=== PATIENT | female | born 1970 | race Caucasian/White ===

== ENCOUNTER → 2017-07-07 10:57 | Outpatient (CLI) | payer MEDICAID, SELFPAY ==
--- NOTE | 2017-07-07 13:34 | NEURO ---
NCS and/or EMG Patient Report Ordering Doctor: Meet Gasca DATE OF SERVICE: 07/07/17 Nohelia Castañeda is a 47-year-old female presents for electrodiagnostic testing of the upper limbs. She has numbness and tingling in both hands for the past 6 months. Electrodiagnostic findings: Median motor nerve demonstrates prolonged distal latency bilaterally with normal amplitude and borderline reduced conduction velocity. Normal ulnar motor response bilaterally. Prolonged median sensory latencies are noted bilaterally. Median and ulnar F waves are within normal limits. Needle EMG testing revealed no evidence of denervation in any muscles tested. Electrodiagnostic impression: This is an abnormal study in the upper limbs. 1. Electrodiagnostic findings demonstrate bilateral median mononeuropathy. This is consistent with a moderate bilateral carpal tunnel syndrome. 2. No electrodiagnostic evidence is noted for ulnar neuropathy. 3. No electrodiagnostic evidence is noted for cervical radiculopathy. If there are any further questions, please do not hesitate contact me.
== END ==
PROVIDERS: Family Provider Family Medicine; PCP Family Medicine; Visit Provider Internal Medicine Cardiovascular Disease
DX: R20.2 Paresthesia of skin (principal)
CPT/HCPCS: 95886; 95912; Q9957; A4216

== ENCOUNTER → 2017-07-07 13:55 | Outpatient (CLI) | payer MEDICAID, SELFPAY ==
--- NOTE | 2017-07-07 11:00 | ECHOCS_ITS ---
Reason For Study: Chest Pain Procedure This was a 2D Doppler, Color Flow transthoracic echocardiogram. Exam performed in department. Left Ventricle Normal size and thickness. The estimated ejection fraction is 65 %. Normal diastology for age. No regional wall motion abnormalities noted. Right Ventricle Normal size and thickness. Normal systolic function. Atria Normal left atrium. Normal right atrium. Normal atrial septum. Mitral Valve The mitral valve is structurally normal. No prolapse or stenosis seen. Tricuspid Valve Normal tricuspid valve. Trivial tricuspid valve insufficiency. Right ventricular systolic pressure estimated to be 23 mmHg. Aortic Valve Trisinus/trileaflet aortic valve. Mild focal aortic valve thickening. There is no aortic stenosis. Trivial aortic valve insufficiency. Pulmonic Valve Normal pulmonic valve. Great Vessels Normal aortic root. Normal arch. Normal inferior vena cava. Inferior vena cava collapse with sniff. Pericardium/Pleural No pericardial effusion. Medication 22 gauge I.V. with prn adaptor inserted into right arm. Diluted definity 1ml given slow IV push to enhance endocardial definition. MMode/2D Measurements & Calculations LVIDd: 4.5 cm IVSd: 1.2 cm Ao root diam: 3.2 cm LVIDs: 2.6 cm LVPWd: 1.1 cm LA dimension: 3.6 cm RVDd: 3.3 cm FS: 43.1 % LAV(MOD-bp): 43.1 ml LVAd ap4: 26.5 cm2 SV(MOD-sp4): 47.6 ml LAV(MOD-bp) Indexed: 20.8 ml/m2 EDV(MOD-sp4): 76.8 ml LAV(MOD-sp2): 41.9 ml EDV(sp4-el): 80.8 ml LAV(MOD-sp4): 42.7 ml LVAs ap4: 14.4 cm2 ESV(MOD-sp4): 29.2 ml ESV(sp4-el): 29.7 ml EF(MOD-sp4): 61.9 % EF(sp4-el): 63.3 % SV(sp4-el): 51.1 ml LA A4 area: 16.6 cm2 RA A4 area: 13.9 cm2 Time Measurements MV dec time: 0.22 sec Doppler Measurements & Calculations MV E max felix: 81.2 cm/sec Lat Peak E' Felix: 7.5 cm/sec Med Peak E' Felix: 6.9 cm/sec MV A max felix: 64.3 cm/sec E/E' lat: 10.9 E/E' med: 11.8 MV E/A: 1.3 MV V2 max: 88.4 cm/sec MV P1/2t max felix: 89.5 cm/sec Ao V2 max: 140.2 cm/sec MV max P.1 mmHg MV P1/2t: 113.6 msec Ao max P.9 mmHg MV V2 mean: 50.8 cm/sec MV dec slope: 230.8 cm/sec2 Ao V2 mean: 102.4 cm/sec MV mean P.2 mmHg MVA(P1/2t): 1.9 cm2 Ao mean P.5 mmHg MV V2 VTI: 28.9 cm Ao V2 VTI: 30.9 cm LV V1 max: 89.4 cm/sec PA V2 max: 82.8 cm/sec LV V1 max P.2 mmHg LV V1 mean P.4 mmHg LV V1 mean: 54.8 cm/sec LV V1 VTI: 17.9 cm Interpretation Summary The estimated ejection fraction is 65 %. Normal diastology for age. Trivial tricuspid valve insufficiency. Right ventricular systolic pressure estimated to be 23 mmHg. Mild focal aortic valve thickening of non-coronary cusp. Trivial aortic valve insufficiency. There is no aortic stenosis. The study was technically difficult. There is no comparison study available. Contrast injection was performed. Ordering Physician: Darnell Montelongo Referring Physician: Darnell Montelongo Performed By: Luther Caraballo RCS
== END ==
PROVIDERS: Family Provider Family Medicine; PCP Family Medicine; Visit Provider Internal Medicine Cardiovascular Disease
DX: R07.9 Chest pain, unspecified (principal); E03.9 Hypothyroidism, unspecified; R20.2 Paresthesia of skin
CPT/HCPCS: 93306; 95886; 95912; Q9957; A4216; C8929

== ENCOUNTER → 2017-07-15 10:08 | Outpatient (CLI) | payer MEDICAID, SELFPAY ==
[2017-06-24 10:36] VITALS: BMI 42.4
[2017-06-24 12:23] VITALS: BP 152/84
--- NOTE | 2017-07-15 10:11 | STE_ITS ---
Reason For Study: Obesity, Chest Pain Stress Results Protocol: Dobutamine Stress Echocardiogram Maximum Predicted HR: 174 bpm Target HR: 148 bpm% Maximum Predicted HR: 86 % DurationHeart Rate Stage (mm:ss) (bpm) BPDose Comment BASELINE 80 133/91 DEFINITY 7 ML DILUTED USED DURING STRESS DSE- 10 MCG 3:44 83 160/85815.00 DSE- 20 MCG 3:05 13 9 158/63229.00 DSE- 30 MCG 2:12 15 0 192/99046.00 RECOVERY 89 150/10 2 Stress Duration: 9:01 mm:ss Maximum Stress HR: 150 bpm Baseline Echocardiogram Findings The estimated ejection fraction is 65 %. Stress Echo Wall motion Data Resting WMIntermediate WMStress WM Resting Wall Motion Wall Motion Stress No regional wall motion No regional wall motion abnormalities noted. abnormalities noted. EKG Data Normal intervals are noted. The patient was titrated from 10 mcg to a maximun of 30 mcg of dobutamine during the stress. The maximum heart rate attained was 150 beats per minute. This was 86% of maximum predicted heart rate. At peak infusion, upsloping ST changes only were noted, which did not meet the criteria for ischemia. No clinical angina was noted. Interpretation Summary The study was technically difficult. Contrast injection was performed. The estimated ejection fraction is 65 %. The patient was titrated from 10 mcg to a maximun of 30 mcg of dobutamine during the stress. normal adequate dobutamine echocardiogram. Negative for ischemia by EKG and echocardiographic anterior. No anginal symptoms noted. No arrhythmias noted. Hypertensive blood pressure response to dobutamine. Final LVEF is 75%. Decreased sensitivity due to poor echo windows requiring Definity contrast agent. No complications. Ordering Physician: Darnell Montelongo Referring Physician: Darnell Montelongo Performed By: Lea Manning, CHRISTOPHER, RVT
== END ==
PROVIDERS: Family Provider Family Medicine; PCP Family Medicine; Visit Provider Internal Medicine Cardiovascular Disease
DX: R07.9 Chest pain, unspecified (principal); E78.5 Hyperlipidemia, unspecified; I10 Essential (primary) hypertension; R06.00 Dyspnea, unspecified; E66.9 Obesity, unspecified
CPT/HCPCS: 93017; 93350; J7030; Q9957; A4216; C8928

== ENCOUNTER → 2017-07-21 09:47 | Outpatient (CLI) | payer MEDICAID, SELFPAY ==
--- NOTE | 2017-07-21 09:50 | RAD_ITS ---
STUDY: X-RAY - RIGHT WRIST REASON FOR EXAM: Female, 47 years old. Chronic pain and numbness. TECHNIQUE: 3 view(s) of the wrist were obtained. COMPARISON: None. FINDINGS: Normal visualized distal radius and ulna. Normal radiocarpal articulation. Normal distal radioulnar articulation. Normal carpal bones. Normal carpal articulations. Normal carpometacarpal articulation of the thumb. Normal second through fifth carpometacarpal articulations. Normal visualized metacarpal bones. The soft tissue structures are unremarkable. RAD/Wrist min 3 Views IMPRESSION: No evidence of acute osseous process. Electronically Signed: Hunter John DO at 20:27 EST , Service support ,
== END ==
PROVIDERS: Family Provider Family Medicine; PCP Family Medicine; Visit Provider Orthopaedic Surgery
DX: M25.531 Pain in right wrist (principal)
CPT/HCPCS: 73110

== ENCOUNTER 2017-07-27 07:30 | Day surgery (SDC) | payer MEDICAID, SELFPAY ==
[2017-07-27] VITALS (8 sets, daily range): BP systolic 122–161; BP diastolic 87–99; PULSE 74–79; RESP 12–16; TEMP 36.6–37.1; O2SAT 94–98; BMI 41.7
--- NOTE | 2017-07-27 07:01 | PCM.DC.ORTHO ---
Discharge Activity: Return to Normal Activity, May not drive while taking narcotic pain medications., May Shower May shower in (days): 2 May resume sexual activity in: No Restrictions Ice area for (Minutes): 20 Lifting Restrictions: No heavy lifting until sutures are removed Additional Activity Instructions:: May flex and extend fingers and wrist gently ad abdi. No heavy lifting. Keep covered with food preparation and if near any dirty water. Call your doctor if your incision/area has: Continuous Slow Oozing, Sudden Increased Bleeding, Increased Pain/ Swelling, Increased Redness, Foul Smelling Discharge, Swelling at the incision site Call your doctor if you observe: Fever of 101 or Higher, Coldness, Increased Pain, Numbness or Tingling, Change in Color, Inability to urinate, Inability to have a bowel movement, Using more than one pad per hour, Shortness of breath, Dizziness, Fainting spells, Swelling in the ankles, Chest pain, Prolonged hiccoughing, Increased palpitations (irregular heartbeat), Calf discomfort, Uncontrolled pain Suture Line Care: Avoid Pulling/Pushing, Avoid Pinching/Bending Change Dressing in (Days):: 2 Remove Dressing in (days):: 2 Cleanse incision/area with: Soap & Water Allergies/Adverse Reactions: Allergies bacitracin [From Neosporin ([id number])] Allergy (Verified 07/26/17 09:53) rash estrogens, conjugated [From Premarin] Allergy (Verified 07/26/17 09:53) Rash hydrocodone bitartrate [From Vicodin] Allergy (Verified 07/26/17 09:53) Rash latex Allergy (Verified 07/26/17 09:53) Rash neomycin [From Neosporin ([id number])] Allergy (Verified 07/26/17 09:53) rash polymyxin B [From Neosporin ([id number])] Allergy (Verified 07/26/17 09:53) rash pseudoephedrine HCl [From Sudafed] Allergy (Verified 07/26/17 09:53) Shortness of breath azithromycin Adverse Reaction (Verified 07/26/17 09:53) GI Intolerance ibuprofen Adverse Reaction (Verified 07/26/17 09:53) Unknown tolnaftate [From Absorbnorberto JrBruce] Adverse Reaction (Verified 07/26/17 09:53) Unknown Medications to take at Discharge Aspirin [Aspirin, Baby] 81 mg PO DAILY@0800 01/26/15 Atorvastatin Calcium [Lipitor] 20 mg PO QHS 01/26/15 Docusate Sodium [Dok] 100 mg PO DAILY 01/26/15 Metformin(XR) [Glucophage Xr] 1,000 mg PO BID 01/26/15 Atenolol [Tenormin (beta katie)] 100 mg PO DAILY 07/07/16 loratadine 10 mg capsule 10 mg PO QDAY 06/21/17 famotidine 20 mg tablet 20 mg PO QDAY 06/22/17 gabapentin 600 mg tablet 800 mg PO TID tab 06/22/17 glipizide 5 mg tablet 5 mg PO QDAY 06/22/17 isosorbide mononitrate ER 30 mg tablet,extended release 24 hr 30 mg PO BID tab 06/22/17 montelukast 10 mg tablet 10 mg PO QPM 06/22/17 multivitamin tablet 1 tab PO QDAY 06/22/17 nabumetone 750 mg tablet 750 mg PO QDAY tab 06/22/17 naproxen sodium 220 mg tablet 220 mg PO Q12H PRN 06/22/17 potassium chloride ER 10 mEq tablet,extended release(part/cryst) 20 meq PO BID tab 06/22/17 tramadol 50 mg tablet 100 mg PO .QD PRN tab 06/22/17 trazodone 150 mg tablet 200 mg PO QHS tab 06/22/17 venlafaxine ER 225 mg tablet,extended release 24 hr 225 mg PO QAM 06/22/17 Sennosides/Docusate Sodium [Senna Plus Tablet] 2 each PO QHS 07/26/17 Docusate Sodium [Colace] 100 mg PO BID PRN PRN #10 capsule 07/27/17 Oxycodone HCl/Acetaminophen [Percocet 5/325] 1 - 2 tablet PO Q4H PRN PRN #30 tablet 07/27/17 ProMETHAzine [Phenergan] 25 mg PO Q4H PRN PRN #10 tablet 07/27/17 The following prescriptions were given: Oxycodone HCl/Acetaminophen [Percocet 5/325] 1 - 2 tablet PO Q4H PRN PRN #30 tablet PRN Reason: Pain ProMETHAzine [Phenergan] 25 mg PO Q4H PRN PRN #10 tablet PRN Reason: Nausea Docusate Sodium [Colace] 100 mg PO BID PRN PRN #10 capsule PRN Reason: Constipation Primary Care Physician: Meme Santiago DO [Primary Care Provider] - Please Follow Up With: Joseph Meyers DO When: call [facility] for appt for 2 weeks Proposed Discharge Date: 07/27/17
[2017-07-27 08:20] LABS: Bedside Glucose 88 mg/dL (70-110)
--- NOTE | 2017-07-27 08:45 | OP.PN_ITS ---
Immediate Post-Op Note Date of Procedure: 07/27/17 Primary Surgeon/Physician: Joseph Meyers DO suspender cutter: Jose Gilman Pre-Operative Diagnosis: Right carpal tunnel syndrome Post-Operative Diagnosis: Same as above Surgery/Procedure Performed:: Right open carpal tunnel release Description of Surgical Findings:: See dictation Estimated Blood Loss: 2 Specimen's removed: None Type of Anesthesia:: Block,Star ASA Class: ASA1 Normal Healthy Patient - Admit VTE Documentation VTE Present on Admission: No VTE Mechan Device Prophylaxis: SCD's, Knee High ANKIT Hose VTE Pharm Prophylaxis ordered?: No
[2017-07-27] MEDS: Cefazolin 2 GM in 0.9% Normal Saline 100 ML IV (08:51)
[2017-07-27] MEDS: Ketorolac 15 MG/ML Vial IV (09:40)
--- NOTE | 2017-07-27 18:07 | OP.PCM_ITS ---
Report of Operation Date of Procedure: 07/27/17 Pre-Operative Diagnosis: Right carpal tunnel syndrome Post-Operative Diagnosis: Same as above Surgery/Procedure Performed:: Right open carpal tunnel release Description of Surgical Findings:: 47-year-old female with bilateral carpal syndrome by EMG nerve conduction physical examination. Patient elected for right upper extremity open carpal tunnel release at this time. Patient was counseled and consented for the aforementioned procedure. Patient was met in the holding her for the right upper extremity was marked and identified by the with surgeon. Patient underwent a successful [place] block. She was then taken the operating room and underwent standard prepping and draping. Patient had about a 1.5 cm incision longitudinally within the palmar crease over the transverse ligament. Sharp dissection down to soft tissues cannot control any bleeding. The palmar fascia was identified and split. Transverse ligament and identified and gently opened until visualization of the perineural fat. At that point time a soft tissue protector was introduced underneath the transverse ligament and the transverse ligament was then released in a longitudinal fashion from distal to proximal using standard technique. Evaluation of the carpal canal showed no signs of any loose bodies ganglions or synovitis. The wound was then copiously irrigated and the soft tissues were reapproximated with a running 3-0 nylon. The wound was then closed additionally with Dermabond allowed to dry. Compressive wrap was then placed. I was scrubbed and available time during our procedure. We had no drains or complications. And no implants. Any issues please contact me. Patient will start early range of motion about the wrist to follow-up with me in 2 weeks for a wound check. Will consider releasing the left upper extremity at roughly the 6 week benjie. Any issues please contact me. radiotelegraph operator servicer: Jose Gilman Type of Anesthesia:: Block,Star Specimen's removed: None Estimated Blood Loss (mL): 2 - Complications None - Admit VTE Documentation VTE Present on Admission: No VTE Mechan Device Prophylaxis: SCD's, Knee High ANKIT Hose VTE Pharm Prophylaxis ordered?: No Reason prophylaxis not ordered:: Treatment Not Indicated
== END 2017-07-27 10:51 | disposition home or self-care (01) ==
LOC: SDC 07:32 → AC 07:32
PROVIDERS: Family Provider Family Medicine; PCP Family Medicine; Visit Provider Orthopaedic Surgery
PROC: (CPT 64721; principal; 2017-07-27 08:40)
DX: G56.01 Carpal tunnel syndrome, right upper limb (principal); E11.9 Type 2 diabetes mellitus without complications; E78.5 Hyperlipidemia, unspecified; I10 Essential (primary) hypertension; F32.9 Major depressive disorder, single episode, unspecified; K21.9 Gastro-esophageal reflux disease without esophagitis; G47.33 Obstructive sleep apnea (adult) (pediatric); M19.90 Unspecified osteoarthritis, unspecified site; Z79.82 Long term (current) use of aspirin
CPT/HCPCS: 64721; 82962; J7120

== ENCOUNTER 2017-09-21 07:35 | Day surgery (SDC) | payer MEDICAID, SELFPAY ==
[2017-09-21] VITALS (7 sets, daily range): BP systolic 134–153; BP diastolic 89–115; PULSE 69–77; RESP 16–18; TEMP 36.6–37.1; O2SAT 92–99; BMI 40.6
--- NOTE | 2017-09-21 07:05 | PCM.DC.ORTHO ---
Discharge Activity: Return to Normal Activity, May not drive while taking narcotic pain medications., May Shower May shower in (days): 2 May resume sexual activity in: No Restrictions Ice area for (Minutes): 20 Weight Bearing Status: No weight bearing Lifting Restrictions: No heavy lifting greater than 2 pounds Call your doctor if your incision/area has: Continuous Slow Oozing, Sudden Increased Bleeding, Increased Pain/ Swelling, Increased Redness, Foul Smelling Discharge, Swelling at the incision site Call your doctor if you observe: Fever of 101 or Higher, Coldness, Increased Pain, Numbness or Tingling, Change in Color, Inability to urinate, Inability to have a bowel movement, Using more than one pad per hour, Shortness of breath, Dizziness, Fainting spells, Swelling in the ankles, Chest pain, Prolonged hiccoughing, Increased palpitations (irregular heartbeat), Calf discomfort, Uncontrolled pain Suture Line Care: Avoid Pulling/Pushing, Avoid Pinching/Bending Change Dressing in (Days):: 2 Remove Dressing in (days):: 2 Cleanse incision/area with: Soap & Water Additional Dressing/Incision Instructions:: Keep wound covered until follow-up. Allergies/Adverse Reactions: Allergies bacitracin [From Neosporin ([id number])] Allergy (Verified 09/16/17 09:18) rash estrogens, conjugated [From Premarin] Allergy (Verified 09/16/17 09:18) Rash hydrocodone bitartrate [From Vicodin] Allergy (Verified 09/16/17 09:18) Rash latex Allergy (Verified 09/16/17 09:18) Rash neomycin [From Neosporin ([id number])] Allergy (Verified 09/16/17 09:18) rash polymyxin B [From Neosporin ([id number])] Allergy (Verified 09/16/17 09:18) rash pseudoephedrine HCl [From Sudafed] Allergy (Verified 09/16/17 09:18) Shortness of breath azithromycin Adverse Reaction (Verified 09/16/17 09:18) GI Intolerance ibuprofen Adverse Reaction (Verified 09/16/17 09:18) Unknown tolnaftate [From [employer] JrBruce] Adverse Reaction (Verified 09/16/17 09:18) Unknown Medications to take at Discharge Aspirin [Aspirin, Baby] 81 mg PO DAILY@0800 01/26/15 Atorvastatin Calcium [Lipitor] 20 mg PO QHS 01/26/15 Metformin(XR) [Glucophage Xr] 1,000 mg PO BID 01/26/15 Atenolol [Tenormin (beta katie)] 100 mg PO DAILY 07/07/16 loratadine 10 mg capsule 10 mg PO QDAY 06/21/17 famotidine 20 mg tablet 20 mg PO QDAY 06/22/17 gabapentin 600 mg tablet 800 mg PO TID tab 06/22/17 glipizide 5 mg tablet 5 mg PO QDAY 06/22/17 isosorbide mononitrate ER 30 mg tablet,extended release 24 hr 30 mg PO BID tab 06/22/17 montelukast 10 mg tablet 10 mg PO QPM 06/22/17 multivitamin tablet 1 tab PO QDAY 06/22/17 nabumetone 750 mg tablet 750 mg PO QDAY tab 06/22/17 naproxen sodium 220 mg tablet 220 mg PO Q12H PRN 06/22/17 potassium chloride ER 10 mEq tablet,extended release(part/cryst) 20 meq PO BID tab 06/22/17 tramadol 50 mg tablet 100 mg PO PRN PRN tab 06/22/17 trazodone 150 mg tablet 200 mg PO QHS tab 06/22/17 venlafaxine ER 225 mg tablet,extended release 24 hr 225 mg PO QAM 06/22/17 Sennosides/Docusate Sodium [Senna Plus Tablet] 2 each PO QHS 07/26/17 Docusate Sodium [Colace] 100 mg PO BID PRN PRN #10 cap 07/27/17 proMETHazine tablet [Phenergan] 25 mg PO Q4H PRN PRN #10 tab 07/27/17 Docusate Sodium [Colace] 100 mg PO BID PRN PRN #10 cap 09/21/17 Oxycodone HCl/Acetaminophen [Percocet 5/325] 1 - 2 tablet PO Q4H PRN PRN #30 tablet 09/21/17 proMETHazine tablet [Phenergan] 25 mg PO Q4H PRN PRN #10 tab 09/21/17 The following prescriptions were given: Oxycodone HCl/Acetaminophen [Percocet 5/325] 1 - 2 tablet PO Q4H PRN PRN #30 tablet PRN Reason: Pain proMETHazine tablet [Phenergan] 25 mg PO Q4H PRN PRN #10 tab PRN Reason: Nausea Docusate Sodium [Colace] 100 mg PO BID PRN PRN #10 cap PRN Reason: Constipation Primary Care Physician: Meme Santiago DO [Primary Care Provider] - Please Follow Up With: Joseph Meyers DO When: call [facility] for appt for 2 weeks Proposed Discharge Date: 09/21/17
[2017-09-21 08:05] LABS: Bedside Glucose 177 mg/dL (70-110)
--- NOTE | 2017-09-21 10:03 | PCM.DC.ORTHO ---
Discharge Activity: Return to Normal Activity, May not drive while taking narcotic pain medications., May Shower May shower in (days): 2 May resume sexual activity in: No Restrictions Ice area for (Minutes): 20 Weight Bearing Status: No weight bearing Call your doctor if your incision/area has: Continuous Slow Oozing, Sudden Increased Bleeding, Increased Pain/ Swelling, Increased Redness, Foul Smelling Discharge, Swelling at the incision site Call your doctor if you observe: Fever of 101 or Higher, Coldness, Increased Pain, Numbness or Tingling, Change in Color, Inability to urinate, Inability to have a bowel movement, Using more than one pad per hour, Shortness of breath, Dizziness, Fainting spells, Swelling in the ankles, Chest pain, Prolonged hiccoughing, Increased palpitations (irregular heartbeat), Calf discomfort, Uncontrolled pain Suture Line Care: Avoid Pulling/Pushing, Avoid Pinching/Bending Change Dressing in (Days):: 2 Remove Dressing in (days):: 2 Cleanse incision/area with: Soap & Water Additional Dressing/Incision Instructions:: Keep wound covered until follow-up. Allergies/Adverse Reactions: Allergies bacitracin [From Neosporin ([id number])] Allergy (Verified 09/16/17 09:18) rash estrogens, conjugated [From Premarin] Allergy (Verified 09/16/17 09:18) Rash hydrocodone bitartrate [From Vicodin] Allergy (Verified 09/16/17 09:18) Rash latex Allergy (Verified 09/16/17 09:18) Rash neomycin [From Neosporin ([id number]-lpa-[id number])] Allergy (Verified 09/16/17 09:18) rash polymyxin B [From Neosporin ([id number]-[id number])] Allergy (Verified 09/16/17 09:18) rash pseudoephedrine HCl [From Sudafed] Allergy (Verified 09/16/17 09:18) Shortness of breath azithromycin Adverse Reaction (Verified 09/16/17 09:18) GI Intolerance ibuprofen Adverse Reaction (Verified 09/16/17 09:18) Unknown tolnaftate [From Absorbine Jr.] Adverse Reaction (Verified 09/16/17 09:18) Unknown Medications to take at Discharge Aspirin [Aspirin, Baby] 81 mg PO DAILY@0800 01/26/15 Atorvastatin Calcium [Lipitor] 20 mg PO QHS 01/26/15 Metformin(XR) [Glucophage Xr] 1,000 mg PO BID 01/26/15 Atenolol [Tenormin (beta katie)] 100 mg PO DAILY 07/07/16 loratadine 10 mg capsule 10 mg PO QDAY 06/21/17 famotidine 20 mg tablet 20 mg PO QDAY 06/22/17 gabapentin 600 mg tablet 800 mg PO TID tab 06/22/17 glipizide 5 mg tablet 5 mg PO QDAY 06/22/17 isosorbide mononitrate ER 30 mg tablet,extended release 24 hr 30 mg PO BID tab 06/22/17 montelukast 10 mg tablet 10 mg PO QPM 06/22/17 multivitamin tablet 1 tab PO QDAY 06/22/17 nabumetone 750 mg tablet 750 mg PO QDAY tab 06/22/17 naproxen sodium 220 mg tablet 220 mg PO Q12H PRN 06/22/17 potassium chloride ER 10 mEq tablet,extended release(part/cryst) 20 meq PO BID tab 06/22/17 tramadol 50 mg tablet 100 mg PO PRN PRN tab 06/22/17 trazodone 150 mg tablet 200 mg PO QHS tab 06/22/17 venlafaxine ER 225 mg tablet,extended release 24 hr 225 mg PO QAM 06/22/17 Sennosides/Docusate Sodium [Senna Plus Tablet] 2 each PO QHS 07/26/17 Docusate Sodium [Colace] 100 mg PO BID PRN PRN #10 cap 07/27/17 proMETHazine tablet [Phenergan] 25 mg PO Q4H PRN PRN #10 tab 07/27/17 Docusate Sodium [Colace] 100 mg PO BID PRN PRN #10 cap 09/21/17 Oxycodone HCl/Acetaminophen [Percocet 5/325] 1 - 2 tablet PO Q4H PRN PRN #30 tablet 09/21/17 proMETHazine tablet [Phenergan] 25 mg PO Q4H PRN PRN #10 tab 09/21/17 The following prescriptions were given: Oxycodone HCl/Acetaminophen [Percocet 5/325] 1 - 2 tablet PO Q4H PRN PRN #30 tablet PRN Reason: Pain proMETHazine tablet [Phenergan] 25 mg PO Q4H PRN PRN #10 tab PRN Reason: Nausea Docusate Sodium [Colace] 100 mg PO BID PRN PRN #10 cap PRN Reason: Constipation Primary Care Physician: Meme Santiago DO [Primary Care Provider] - Please Follow Up With: Joseph Meyers DO When: call [facility] for appt for 2 weeks Proposed Discharge Date: 09/21/17
--- NOTE | 2017-09-21 10:04 | PCM.IMDPSTOP ---
Immediate Post-Op Note Date of Procedure: 09/21/17 Primary Surgeon/Physician: Joseph Meyers, senior asp net developer: None senior asp net developer: none Pre-Operative Diagnosis: Left wrist carpal tunnel syndrome Post-Operative Diagnosis: same as above Surgery/Procedure Performed:: Left wrist open carpal tunnel release Description of Surgical Findings:: See dictation Estimated Blood Loss: 2 Specimen's removed: None Type of Anesthesia:: Block,[place] ASA Class: ASA2 Mod Systematic Disease - Admit VTE Documentation VTE Present on Admission: No VTE Mechan Device Prophylaxis: SCD's, Knee High ANKIT Hose VTE Pharm Prophylaxis ordered?: No
[2017-09-21] MEDS: Cefazolin 2 GM in 0.9% Normal Saline 100 ML IV (10:05)
--- NOTE | 2017-09-21 10:05 | PCM.OPRPT ---
Report of Operation Date of Procedure: 09/21/17 Pre-Operative Diagnosis: Left wrist carpal tunnel syndrome Post-Operative Diagnosis: same as above Surgery/Procedure Performed:: Left wrist open carpal tunnel release Description of Surgical Findings:: 47-year-old female with bilateral carpal tunnel syndrome by physical examination and EMG nerve conduction study. Patient underwent a successful right open carpal tunnel release and elected for a left open carpal tunnel release. Patient was counseled consented for the aforementioned procedure. She is met in the holding area with a left upper extremity was marked and identified by the orthopedic surgeon. Patient was taken the operating room where she underwent a successful Star block. Patient received 2 g Ancef. Obviously she had a well-placed tourniquet left upper extremity. She was then prepped and draped in usual fashion. Patient had a 2 cm incision longitudinally within the central crease of the distal wrist over the carpal ligament. We used sharp dissection down to the soft tissues Bovie cautery control any bleeding. Palmar fascia was identified longitudinally split. Transverse ligament was then identified most distal edge was opened. The nerve was identified and protected and the remaining portion of the carpal ligament was then released in a transverse pattern. Evaluation the carpal tunnel revealed no signs of any loose bodies significant synovitis or ganglions. Her wound was then copiously irrigated and was then closed using a simple running stitch with then subsequent Dermabond application. Patient was then dressed in the usual fashion to include Xeroform 4 x 4 and Danny wrap. Tourniquet was let down after roughly 20 minutes of total time for the [place] block protocol. Patient will be discharged home with no heavy lifting. She may take a shower but do not submerge wound. He had no drains or complications no implants. I was scrubbed and available time during our procedure. Any major issues please contact me. braiding machine tender: none Type of Anesthesia:: Block,[place] Specimen's removed: None Estimated Blood Loss (mL): 2 Grafts/Implants Used: None - Complications None - Admit VTE Documentation VTE Present on Admission: No VTE Mechan Device Prophylaxis: SCD's, Knee High ANKIT Hose VTE Pharm Prophylaxis ordered?: No Reason prophylaxis not ordered:: Treatment Not Indicated
--- NOTE | 2017-09-21 10:08 | OP.PCM_ITS ---
Report of Operation Date of Procedure: 09/21/17 Pre-Operative Diagnosis: Left wrist carpal tunnel syndrome Post-Operative Diagnosis: same as above Surgery/Procedure Performed:: Left wrist open carpal tunnel release Description of Surgical Findings:: 47-year-old female with bilateral carpal tunnel syndrome by physical examination and EMG nerve conduction study. Patient underwent a successful right open carpal tunnel release and elected for a left open carpal tunnel release. Patient was counseled consented for the aforementioned procedure. She is met in the holding area with a left upper extremity was marked and identified by the orthopedic surgeon. Patient was taken the operating room where she underwent a successful Star block. Patient received 2 g Ancef. Obviously she had a well-placed tourniquet left upper extremity. She was then prepped and draped in usual fashion. Patient had a 2 cm incision longitudinally within the central crease of the distal wrist over the carpal ligament. We used sharp dissection down to the soft tissues Bovie cautery control any bleeding. Palmar fascia was identified longitudinally split. Transverse ligament was then identified most distal edge was opened. The nerve was identified and protected and the remaining portion of the carpal ligament was then released in a transverse pattern. Evaluation the carpal tunnel revealed no signs of any loose bodies significant synovitis or ganglions. Her wound was then copiously irrigated and was then closed using a simple running stitch with then subsequent Dermabond application. Patient was then dressed in the usual fashion to include Xeroform 4 x 4 and Danny wrap. Tourniquet was let down after roughly 20 minutes of total time for the [place] block protocol. Patient will be discharged home with no heavy lifting. She may take a shower but do not submerge wound. He had no drains or complications no implants. I was scrubbed and available time during our procedure. Any major issues please contact me. histology tech: none Type of Anesthesia:: Block,[place] Specimen's removed: None Estimated Blood Loss (mL): 2 Grafts/Implants Used: None - Complications None - Admit VTE Documentation VTE Present on Admission: No VTE Mechan Device Prophylaxis: SCD's, Knee High ANKIT Hose VTE Pharm Prophylaxis ordered?: No Reason prophylaxis not ordered:: Treatment Not Indicated
== END 2017-09-21 11:32 | disposition home or self-care (01) ==
LOC: SDC 07:35 → AC 07:36
PROVIDERS: Family Provider Family Medicine; PCP Family Medicine; Visit Provider Orthopaedic Surgery
PROC: (CPT 64721; principal; 2017-09-21 09:05)
DX: G56.02 Carpal tunnel syndrome, left upper limb (principal); I10 Essential (primary) hypertension; K21.9 Gastro-esophageal reflux disease without esophagitis; E78.00 Pure hypercholesterolemia, unspecified; E11.9 Type 2 diabetes mellitus without complications; F32.9 Major depressive disorder, single episode, unspecified; G47.33 Obstructive sleep apnea (adult) (pediatric); K76.0 Fatty (change of) liver, not elsewhere classified; I25.10 Atherosclerotic heart disease of native coronary artery without angina pectoris
CPT/HCPCS: 01810; 64721; 82962; J7120

== ENCOUNTER 2017-10-11 10:27 | Outpatient (CLI) | payer MEDICAID, SELFPAY ==
[2017-10-11 10:27] VITALS: BP 171/127; PULSE 81; RESP 16; TEMP 36.4; O2SAT 97; BMI 40.4
--- NOTE | 2017-10-11 10:48 | EKG12_ITS ---
Test Reason : CP Blood Pressure : / mmHG Vent. Rate : 077 BPM Atrial Rate : 077 BPM P-R Int : 174 ms QRS Dur : 086 ms QT Int : 392 ms P-R-T Axes : 024 001 -01 degrees QTc Int : 443 ms Normal sinus rhythm Normal ECG Confirmed by ABEL LAZARO, TOM ([id number]), news editor KAIT ELMORE ([id number]) on 10/13/2017 2:10:09 PM Referred By: ED Confirmed By:TOM ROMAN MD
[2017-10-11 11:02] VITALS: BP 150/110; PULSE 76; RESP 18; O2SAT 96
[2017-10-11 11:18] LABS: Absolute Lymphocyte Count 2.39 X10^3/ul (0.83-4.51); Absolute Neutrophil Count 5.3 X10^3/uL (2.0-7.7); Basophil# 0.05 X10^3/uL; Basophil% 0.5 % (0-1); Eosinophil# 1.74 X10^3/uL; Eosinophils% 17.3 % (0-5); Hematocrit 37.6 % (37-47); Hemoglobin 12.9 g/dl (12.0-15.0); Lymphocyte # 2.39 X10^3/ul (4.0); Lymphocyte % 23.8 % (19-41); Mean Corp Hgb Conc 34.3 g/gl (32-36); Mean Corpuscular Hgb 27.4 pg (27.0-32.0); Mean Corpuscular Volume 79.8 fL (81-99); Mean Platelet Vol. 9.6 fl (6.2-12.0); Monocyte# 0.54 X10^3/uL; Monocyte% 5.4 % (0-10); Neutrophil # 5.29 X10^3/uL (2.7-7.7); Neutrophil % 52.7 % (47-70); POSITIVE COUNT NO; POSITIVE DIFFERENTIAL NO; POSITIVE MORPHOLOGY NO; Platelet Count 263 K/mm3 (150-450); RBC Distribution Width CV 13.7 % (11.6-14.6); RBC Distribution Width SD 38.9 fl (35.1-43.9); Red Blood Count 4.71 M/mm3 (4.2-5.4)
--- NOTE | 2017-10-11 11:33 | RAD_ITS ---
STUDY: X-RAY CHEST REASON FOR EXAM: Female, 47 years old. Chest pain TECHNIQUE: PA and lateral views of the chest. COMPARISON: 10/05/2014 FINDINGS: Cardiac monitoring leads overlie the chest. The lungs are clear and expanded. There is no demonstrated pleural abnormality. Normal size heart. Normal mediastinum and rusty. Normal visualized pulmonary arteries. Normal visualized aortic arch and descending thoracic aorta. There are diffuse degenerative changes of the visualized thoracic spine. Normal visualized ribs, clavicles, and shoulders. There is no demonstrated abnormality of the visualized soft tissue structures of the upper abdomen. RAD/Chest PA and Lateral IMPRESSION: No acute process. Electronically Signed: Antwon Aguayo DO at 12:06 EDT Tel , Service support ,
[2017-10-11 11:36] LABS: D-Dimer Quantitative (DVT/PE) 0.37 FEU/ug/m (0.27-0.49)
[2017-10-11 11:39] LABS: Anion Gap 7 (5-15); BUN 14 mg/dL (7-18); BUN/Creat Ratio 17.5 RATIO (10-20); Calcium,Total 9.2 mg/dL (8.5-10.1); Chloride 105 mmol/L (98-107); EST Glomerular Filtration Rate 82 mL/min (>60); Est Glom Filt Rate - Afr Amer 99 mL/min (>60); Estimated Creatinine Clearance 79.07 ml/min; Glucose 149 mg/dL (74-106); Potassium 4.1 mmol/L (3.5-5.1); Sodium Level 140 mmol/L (136-145)
--- NOTE | 2017-10-11 12:16 | ED.DCSUM_ITS ---
- ER Visit Summary Date of Service: 10/11/17 Chief Complaint: Chest pain History of Present Illness: The patient is a 47 F presenting for evaluation secondary chest pain. Patient states that since Wednesday she has had continuous chest pain. She describes it as a pressure over her anterior chest. She states that it is associated with some shortness of breath because she feels as if she cannot take a deep breath. Patient states that the pain started after she had to walk home on Wednesday. Patient denies any recent infectious signs or symptoms. She did have surgery 3 weeks ago for a carpal tunnel release. She denies any DVT or PE history, does not endorse any hemoptysis. Patient has an underlying history of some coronary artery disease with hypertension diabetes high cholesterol. She had a negative stress echo in July. Physical Examination: Vital signs are within normal limits, patient is afebrile. General: Patient is well-nourished well-developed and in no acute distress. Head: Normocephalic, atraumatic Eyes: Pupils equal round and reactive bilaterally, extra occular motion intact bialterally ENT: Moist mucous membranes Neck: Supple, no lymphadenopathy, no JVD, no meningismus CVS: Heart regular rate and rhythm, no murmurs, rubs or gallops, radial pulses 2 + bilaterally Resp: Respirations nondistressed, lung sounds clear bilaterally, anterior chest tenderness without any evidence of step-offs crepitus or deformity Abdomen: Soft, nontender, nondistended, no palpable masses, normal bowel sounds Back: Nontender Extremities: Nontender, atraumatic, active full range of motion, no peripheral edema Skin: warm, no rashes, no petechia Neuro: Alert and oriented x 4, CN 2-12 intact, no lateralizing neurological defecits Psyc: Normal affect Test Results: EKG shows sinus rhythm [address] segments normal T waves no changes from prior. CBC chemistry troponin and d-dimer all unremarkable. PA and lateral chest x-ray normal by my personal and radiologist interpretation. Emergency Department Course and Treatment: Patient presented for evaluation secondary to 3 days of continuous chest pain. Her cardiac enzyme is negative, her EKG is unchanged, she had a negative stress echo within the last couple of months. Her d-dimer is negative making the likelihood of PE very low. This pain is very clearly reproducible. This likely is musculoskeletal. Patient's heart score is 3, and her CLEMENTE score is 1. I believe she can safely be discharged with symptomatic treatment with lidocaine patches. Disposition: Discharge Impression: 1. Musculoskeletal chest pain This note was generated with [employer] dictation software. It may contain incorrect words, spelling, and punctuation that were not noted in review of the chart prior to signing ED Disposition - Plan for ED Patient: Disposition: Home or Assisted Living Chief Complaint: Chest Pain Diagnosis: Chest wall pain Instructions: ED Chest Pain Costochondritis Prescriptions: Lidocaine [Lidoderm] 1 ea TP DAILY #10 adh..patch Referrals: Meme Santiago DO [Primary Care Provider] - 3-5 Days
[2017-10-11 12:31] VITALS: BP 136/100; PULSE 75; PULSE 77; RESP 13; RESP 19; O2SAT 97; O2SAT 98
[2017-10-11] MEDS: Lidocaine 5% Patch 1 PATCH TOPICAL (12:39)
[2017-11-04 15:37] LABS: Absolute Lymphocyte Count 2.01 X10^3/ul (0.83-4.51); Absolute Neutrophil Count 5.6 X10^3/uL (2.0-7.7); Basophil# 0.03 X10^3/uL; Basophil% 0.3 % (0-1); Eosinophil# 0.65 X10^3/uL; Eosinophils% 7.4 % (0-5); Hematocrit 37.4 % (37-47); Hemoglobin 12.6 g/dl (12.0-15.0); Lymphocyte # 2.01 X10^3/ul (4.0); Lymphocyte % 22.8 % (19-41); Mean Corp Hgb Conc 33.7 g/gl (32-36); Mean Corpuscular Volume 80.3 fL (81-99); Mean Platelet Vol. 10.1 fl (6.2-12.0); Monocyte# 0.51 X10^3/uL; Monocyte% 5.8 % (0-10); Neutrophil # 5.59 X10^3/uL (2.7-7.7); Neutrophil % 63.4 % (47-70); Platelet Count 281 K/mm3 (150-450); RBC Distribution Width CV 13.5 % (11.6-14.6); RBC Distribution Width SD 38.8 fl (35.1-43.9); Red Blood Count 4.66 M/mm3 (4.2-5.4); White Blood Count 8.8 K/mm3 (4.4-11.0)
[2017-11-04 15:40] LABS: POSITIVE COUNT NO; POSITIVE DIFFERENTIAL NO; POSITIVE MORPHOLOGY NO
[2017-11-04 15:47] LABS: ALB/GLOB Ratio 1.1 RATIO (0.9-2.4); AST(SGOT) 16 U/L (15-37); Alanine Aminotransfer ALT/SGPT 22 U/L (13-56); Albumin, Serum 3.7 g/dL (3.2-5.0); Alkaline Phosphatase 113 U/L (45-117); Anion Gap 6 (5-15); BUN 10 mg/dL (7-18); BUN/Creat Ratio 12.3 RATIO (10-20); Calcium,Total 8.8 mg/dL (8.5-10.1); Chloride 104 mmol/L (98-107); Creatinine, Serum 0.82 mg/dL (0.55-1.02); EST Glomerular Filtration Rate 80 mL/min (>60); Est Glom Filt Rate - Afr Amer 97 mL/min (>60); Estimated Creatinine Clearance 77.14 ml/min; Globulin 3.4 g/dL (2.2-4.2); Glucose 112 mg/dL (74-106); Lipase 102 U/L (73-393); Potassium 3.7 mmol/L (3.5-5.1); Protein, Total 7.1 g/dL (6.4-8.2); Sodium Level 140 mmol/L (136-145)
== END 2017-11-04 13:32 ==
LOC: ED 12:16 → BFHLAB 11-04 13:33
PROVIDERS: Emergency Provider Emergency Medicine; Family Provider Family Medicine; PCP Family Medicine; Visit Provider Family Medicine
DX: I10 Essential (primary) hypertension (principal); R10.9 Unspecified abdominal pain; R07.89 Other chest pain; E11.9 Type 2 diabetes mellitus without complications; E78.00 Pure hypercholesterolemia, unspecified; F41.9 Anxiety disorder, unspecified; I25.10 Atherosclerotic heart disease of native coronary artery without angina pectoris
CPT/HCPCS: 36415; 71046; 80048; 80053; 83690; 84484; 85025; 85379; 93005; 99284; A4216

== ENCOUNTER 2017-11-14 11:00 | Emergency (ER) | payer MEDICAID, SELFPAY ==
--- NOTE | 2017-11-14 11:00 | DT_ITS ---
This patient was seen during an EMR downtime November 08, 2017 - November 15, 2017. This patient may have a combination of paper and electronic documentation or all paper documentation. All documentation is viewable within the e-chart portion of [facility] for each patient visit.
--- NOTE | 2017-11-14 11:15 | RAD_ITS ---
STUDY: X-RAY CHEST REASON FOR EXAM: Female, 47 years old. Chest pain. TECHNIQUE: Single AP portable view of the chest. COMPARISON: Prior comparison studies are not available for review at this time. FINDINGS: The lungs are clear and expanded. There is no demonstrated pleural abnormality. There is borderline cardiomegaly. Normal mediastinum and rusty. Normal visualized pulmonary arteries. Normal visualized aortic arch and descending thoracic aorta. Normal visualized thoracic spine. Normal visualized ribs, clavicles, and shoulders. There is no demonstrated abnormality of the visualized soft tissue structures of the upper abdomen. RAD/Chest 1 View IMPRESSION: Borderline cardiomegaly. Electronically Signed: Asya Mcclure MD at 11:43 EDT , Service support ,
--- NOTE | 2017-11-14 13:16 | EKG12_ITS ---
Test Reason : CP Blood Pressure : / mmHG Vent. Rate : 089 BPM Atrial Rate : 089 BPM P-R Int : 164 ms QRS Dur : 086 ms QT Int : 402 ms P-R-T Axes : 029 004 -02 degrees QTc Int : 489 ms Normal sinus rhythm Normal ECG Confirmed by VITA MCCLENDON MD ([id number]), tape editor KAIT ELMORE ([id number]) on 11/17/2017 5:43:33 PM Referred By: Vicki Rivers Confirmed By:VITA MCCLENDON MD
[2017-11-16 11:12] LABS: BNP,B-Type NATRIURETIC PEPTIDE 17.5 pg/mL (0-100)
[2017-11-16 11:31] LABS: Anion Gap 10 (5-15); BUN 10 mg/dL (7-18); BUN/Creat Ratio 11.6 RATIO (10-20); Calcium,Total 8.7 mg/dL (8.5-10.1); Chloride 105 mmol/L (98-107); Creatinine, Serum 0.86 mg/dL (0.55-1.02); EST Glomerular Filtration Rate 76 mL/min (>60); Est Glom Filt Rate - Afr Amer 92 mL/min (>60); Glucose 210 mg/dL (74-106); Potassium 3.7 mmol/L (3.5-5.1); Sodium Level 142 mmol/L (136-145)
[2017-11-16 11:42] LABS: Hematocrit 38.5 % (37-47); Hemoglobin 13.1 g/dl (12.0-15.0); Mean Corpuscular Volume 79.2 fL (81-99); Mean Platelet Vol. 9.2 fl (6.2-12.0); POSITIVE COUNT NO; POSITIVE DIFFERENTIAL NO; POSITIVE MORPHOLOGY NO; Platelet Count 219 K/mm3 (150-450); RBC Distribution Width CV 13.7 % (11.6-14.6); RBC Distribution Width SD 38.8 fl (35.1-43.9); Red Blood Count 4.86 M/mm3 (4.2-5.4); White Blood Count 9.5 K/mm3 (4.4-11.0)
[2017-11-16 11:43] LABS: Absolute Lymphocyte Count 1.74 X10^3/ul (0.83-4.51); Absolute Neutrophil Count 6.6 X10^3/uL (2.0-7.7); Basophil# 0.02 X10^3/uL; Basophil% 0.2 % (0-1); Eosinophil# 0.58 X10^3/uL; Eosinophils% 6.1 % (0-5); Lymphocyte # 1.74 X10^3/ul (4.0); Lymphocyte % 18.4 % (19-41); Monocyte# 0.47 X10^3/uL; Neutrophil # 6.61 X10^3/uL (2.7-7.7)
== END 2017-11-14 13:45 | disposition home or self-care (01) ==
LOC: ED 22:15
PROVIDERS: Emergency Provider Emergency Medicine; Family Provider Family Medicine; PCP Family Medicine
DX: R07.89 Other chest pain (principal); E11.9 Type 2 diabetes mellitus without complications; I10 Essential (primary) hypertension; E78.00 Pure hypercholesterolemia, unspecified; G47.30 Sleep apnea, unspecified; K21.9 Gastro-esophageal reflux disease without esophagitis; K76.0 Fatty (change of) liver, not elsewhere classified; F41.9 Anxiety disorder, unspecified; F32.9 Major depressive disorder, single episode, unspecified; Z90.710 Acquired absence of both cervix and uterus; Z79.84 Long term (current) use of oral hypoglycemic drugs; Z79.899 Other long term (current) drug therapy; Z87.891 Personal history of nicotine dependence
CPT/HCPCS: 36415; 71045; 80048; 83880; 84484; 85025; 93005; 96361; 96374; 99285; J7030; J2405

== ENCOUNTER 2017-12-23 10:19 | Emergency (ER) | payer MEDICAID, SELFPAY ==
[2017-12-23 10:20] VITALS: BP 149/114; PULSE 87; RESP 18; TEMP 36.2; O2SAT 97; BMI 44.6
--- NOTE | 2017-12-23 10:28 | RAD_ITS ---
STUDY: X-RAY - UNILATERAL RIBS ( LEFT ) WITH CHEST REASON FOR EXAM: Female, 47 years old. Left-sided rib pain following a fall. TECHNIQUE - RIBS: 4 view(s) of the ribs. TECHNIQUE - CHEST: Single PA view of the chest. COMPARISON: Comparison is made with prior chest radiograph dated November 14, 2017. FINDINGS - RIBS: Normal visualized ribs without a demonstrated fracture. FINDINGS - CHEST: The lungs are clear and expanded. There is no demonstrated pleural abnormality. Normal size heart. Normal mediastinum and rusty. Normal visualized pulmonary arteries. Normal visualized aortic arch and descending thoracic aorta. Normal visualized thoracic spine. Normal visualized ribs, clavicles, and shoulders. There is no demonstrated abnormality of the visualized soft tissue structures of the upper abdomen. RAD/Ribs Uni Min 3V w/PA Chest IMPRESSION: RIBS: Normal x-ray examination of the ribs. CHEST: Normal x-ray examination of the chest. Electronically Signed: Real Arnett MD at 11:13 EDT Tel [phone], Service support ,
--- NOTE | 2017-12-23 10:30 | ED.VISSUMM ---
- ER Visit Summary Date of Service: 12/23/17 Chief Complaint: Left-sided rib pain History of Present Illness: The patient is a 47 F presents to the emergency department with pain in left ribs after fall. Patient states he had a mechanical fall about 3 days ago. She landed on her buttocks and then twisted to the left side. She felt something pop in her left ribs. Since then, she has had exquisite pain on the left side especially with breathing. She denies any cough. She denies any shortness of breath. She has tried topical lidocaine patches and one oxycodone that she had at home with little relief. She does not take anticoagulants. She has no history of pulmonary embolus. She did not strike her head and denies other injury. Physical Examination: Vital signs reviewed General: Well-nourished, well-developed Head: Normocephalic, atraumatic Eyes: Pupils equal and reactive, extraocular muscles intact Neck, supple, no lymphadenopathy Heart: Regular rate and rhythm Respiratory: No distress, clear bilaterally, tenderness over left lateral ribs without step-off. No crepitus. Abdomen: Soft, nontender, nondistended, no peritoneal signs Back: Nontender Extremities: Nontender, no edema, no cords Skin: Normal color no rash Neuro: Alert and oriented, no focal or lateralizing deficits Test Results: [] Emergency Department Course and Treatment: The patient presents with reproducible left-sided chest pain after fall. She has no hypoxia. I did obtain plain films. There is no evidence of fracture, pneumothorax, or other dangerous process. I do feel that this is likely muscular strain. The patient is already on tramadol at home. She will be prescribed anti-inflammatories and antispasmodics. If the patient is safe for outpatient follow-up. She will be discharged home. Treatment Plan: [] Disposition: Discharge Impression: 1. Left rib strain This note was generated with [employer] dictation software. It may contain incorrect words, spelling, and punctuation that were not noted in review of the chart prior to signing ED Disposition - Plan for ED Patient: Chief Complaint: Chest Other Instructions: ED Contusion Rib Prescriptions: Naproxen [Naprosyn] 500 mg PO BID PRN #20 tab Cyclobenzaprine [Flexeril] 10 mg PO TID PRN #20 tab PRN Reason: Muscle Spasm Referrals: Meme Santiago DO [Primary Care Provider] -
[2017-12-23] MEDS: oxyCODONE 5 MG Tablet PO (10:33)
[2017-12-23 11:37] VITALS: BP 124/63; PULSE 75; RESP 16; O2SAT 97
== END 2017-12-23 11:37 | disposition home or self-care (01) ==
LOC: ED 11:00
PROVIDERS: Emergency Provider Emergency Medicine; Family Provider Family Medicine; PCP Family Medicine
DX: S29.011A Strain of muscle and tendon of front wall of thorax, initial encounter (principal); W01.0XXA Fall on same level from slipping, tripping and stumbling without subsequent striking against object, initial encounter; Y93.9 Activity, unspecified; Y92.89 Other specified places as the place of occurrence of the external cause; Y99.9 Unspecified external cause status; I10 Essential (primary) hypertension; Z72.0 Tobacco use
CPT/HCPCS: 71101; 99283

== ENCOUNTER → 2017-12-30 15:55 | Outpatient (CLI) | payer MEDICAID, SELFPAY ==
[2017-12-30 17:28] LABS: Absolute Lymphocyte Count 1.89 X10^3/ul (0.83-4.51); Basophil# 0.02 X10^3/uL; Basophil% 0.3 % (0-1); Eosinophil# 0.31 X10^3/uL; Eosinophils% 4.7 % (0-5); Hematocrit 35.8 % (37-47); Hemoglobin 11.8 g/dl (12.0-15.0); Lymphocyte # 1.89 X10^3/ul (4.0); Lymphocyte % 28.5 % (19-41); Mean Corpuscular Hgb 27.1 pg (27.0-32.0); Mean Corpuscular Volume 82.1 fL (81-99); Mean Platelet Vol. 9.7 fl (6.2-12.0); Neutrophil # 3.98 X10^3/uL (2.7-7.7); Platelet Count 226 K/mm3 (150-450); RBC Distribution Width CV 13.9 % (11.6-14.6); RBC Distribution Width SD 41.7 fl (35.1-43.9); Red Blood Count 4.36 M/mm3 (4.2-5.4); White Blood Count 6.6 K/mm3 (4.4-11.0)
[2017-12-30 17:33] LABS: POSITIVE COUNT NO; POSITIVE DIFFERENTIAL NO; POSITIVE MORPHOLOGY NO
[2017-12-30 17:47] LABS: Prothrombin Time (Protime)PT. 12.8 SECONDS (11.7-14.9)
[2017-12-30 19:00] LABS: Anion Gap 5 (5-15); BUN 12 mg/dL (7-18); BUN/Creat Ratio 12.4 RATIO (10-20); Calcium,Total 8.5 mg/dL (8.5-10.1); Chloride 105 mmol/L (98-107); Creatinine, Serum 0.97 mg/dL (0.55-1.02); EST Glomerular Filtration Rate 66 mL/min (>60); Est Glom Filt Rate - Afr Amer 79 mL/min (>60); Glucose 168 mg/dL (74-106); Potassium 3.5 mmol/L (3.5-5.1); Sodium Level 141 mmol/L (136-145)
== END ==
PROVIDERS: Family Provider Family Medicine; PCP Family Medicine; Visit Provider Internal Medicine Cardiovascular Disease
DX: R07.9 Chest pain, unspecified (principal)
CPT/HCPCS: 36415; 80048; 85025; 85610

== ENCOUNTER 2018-01-07 07:25 | Day surgery (SDC) | payer MEDICAID, SELFPAY ==
[2018-01-06 08:42] VITALS: BMI 41.5
[2018-01-07] VITALS (27 sets, daily range): BP systolic 111–200; BP diastolic 75–142; PULSE 74–86; RESP 9–22; TEMP 36.3–37.1; O2SAT 16–100; BMI 41.6; BMI 41.5
[2018-01-07 10:36] LABS: ACT Activated Clotting Time 191 sec (74-137)
--- NOTE | 2018-01-07 10:36 | CL.I_ITS ---
Patient Name: ROSA CHAN Study Date: 01/07/2018 Performing: Darnell Montelongo MD Ht: 65 inches 165 cm : 1970 Wt: 249.4 lbs 113 kg Age: 47 Gender: female BSA: 2.17 PROCEDURE(S) PERFORMED [id number]/COR/LV [id number] W OR WO PTCA, SINGLE CORONARY ARTERY CLINICAL PROFILE AND CO-MORBIDITIES Indications: Worsening Angina, Stable Known CAD Heart Failure: None Stress/Imaging Stress Echocardiogram: Yes Result: Negative Stress Echocardiogram: Negative Angina Classification Anginal Classification w/in 2 Weeks: CCS II CAD Presentations: Unstable angina. Comorbidities/Risk Factors: Hypertension Dyslipidemia Diabetes Mellitus: Diabetes Therapy: Oral CONCLUSIONS Single vessel CAD of the Proximal RCA Non obstructive coronary arteries Normal LV size, wall motion,and systolic function Normal Left Ventricular End Diastolic Pressure Successful PTCA/JENNA of the of proximal RCA with a 4.0 x 24 Promus Synergy, post dilated with a 4.5 x 12 NC Balloon; 75%-->0%, no dissection. Pt had identical CP during balloon inflation as she has been having at home with exertion. RECOMMENDATIONS Referred for immediate PCI Highly recommend quitting all tobacco products Follow up with primary technical assistance consultant Risk factor modification ASA Indefinitley Plavix for at least 12 months Routine post interventional care Refer for Outpatient Cardiac Rehab Manual sheath removal per protocol Follow up with Dr. Montelongo DESCRIPTION OF PROCEDURE The patient arrived to the procedure lab. The risks and benefits of the procedure as well as a full d escription of our services here and lack of surgical backup were fully explained to the patient and/o r their significant other prior to the catheterization. The Timeout was completed, verifying the krystle ect patient and procedure. The patient's procedural site was prepped and draped in the usual fashion. Local anesthetic was given subcutaneously to right groin region with Lidocaine 2%. Using a modified Seldinger technique, arterial access was obtained via the right femoral artery, a 4Fr sheath was inse rted. Left Coronary Artery selective angiography was performed in multiple views using a 4 Fr. JL5 c atheter. Right Coronary Artery selective angiography was then performed in multiple views using a 4 F r. 3DRC catheter. Left Ventriculography was performed in REBOLLDEO projection using a 4 Fr. Pigtail cathete r. LV to AO pullback pressures were then recordedThe images were reviewed and options discussed. A de cision was then made to proceed with an Intervention, IVUS or other adjunct procedure. Arterial sheath was exchanged for a 6 Fr Sheath. HS II Guide catheter was inserted and engaged into t he RCA. BMW Guide wire was advanced to the RCA. 4x24 Synergy Drug Eluting stent was inserted. Drug El uting stent was advanced across the lesion in the right coronary, proximal. Angiogram performed post stent deployment. 4.5X12 NC Emerge Balloon catheter was inserted. Balloon catheter was inserted post stent. Angiogram performed post balloon dilatation. The arterial sheath was sutured in place and ca pped CORONARY ANGIOGRAPHY DOMINANCE: Right Dominant LEFT HEART ASSESSMENT Left Ventricular Ejection Fraction: by LV Gram 65 % Normal Left Ventricular systolic function Normal Left Ventricular End Diastolic Pressure Normal LV wall motion LEFT MAIN: Angiographically normal LEFT ANTERIOR DECENDING ARTERY: DISTAL LAD: Moderate luminal irregularities up to 50% CIRCUMFLEX ARTERY: Mild luminal irregularities less than 30% OM 1: Ostial - Mild luminal irregularities less than 30% RIGHT CORONARY ARTERY: PROX RCA: 75 % Stenosis INTERVENTION INFORMATION LESION SITE: RCA (Proximal) Lesion Complexity: High/C, lesion at bifurcation: No, thrombus present: No, lesion length: 24 mm, cul prit lesion: Yes Pre Stenosis: 75 % Pre intervention CLEMENTE flow: 3 PROCEDURE: Drug Eluting Stent with pre and post dilatation Post Stenosis: 0 % Post intervention CLEMENTE flow: 3 Lesion Devices: [employer]ence [employer]tr[employer] 6 Fr HSII 100cm Guide Catheter [place] .014 BMW [place] Straight 190cm Alfred Sci Synergy MR JENNA 4.00x24 Alfred Sci NC EMERGE MR 4.50x12 BALLOON COMPLICATIONS No Complications PROCEDURE MEDICATIONS Versed 1 mg IV Oxygen: 2 L/min via nasal cannula Heparin 6000 unit(s) IV 01/07/2018 10:01:42 Nitro 200 mcg IC 01/07/2018 09:56:18 Nitro 200 mcg IC 01/07/2018 09:56:18 SUMMARY OF HEMODYNAMIC DATA Time AIR REST ECG 07:49:25 AO 145/89 (112) SA 09:51:43 LV 147/-12, 8 09:59:58 LV 152/-14, 12 10:00:04 LVp 140/-17, 8 10:00:26 AOp 133/82 (106) 10:00:31 AO 150/91 (118) 10:11:23 Signed By Darnell Montelongo MD On 01/07/2018 10:35:42 Darnell Montelongo MD
--- NOTE | 2018-01-07 11:05 | EKG12_ITS ---
Test Reason : PCI Blood Pressure : / mmHG Vent. Rate : 076 BPM Atrial Rate : 076 BPM P-R Int : 194 ms QRS Dur : 096 ms QT Int : 418 ms P-R-T Axes : 048 029 -03 degrees QTc Int : 470 ms Normal sinus rhythm Nonspecific T wave abnormality Confirmed by ABEL LAZARO, TOM ([id number]), photo editor KAIT ELMORE ([id number]) on 01/12/2018 11:24:51 AM Referred By: Darnell Montelongo Confirmed By:TOM ROMAN MD
[2018-01-07] MEDS: 0.9% Normal Saline 1,000 ML 150 ML IV (11:51)
[2018-01-07] MEDS: Famotidine 20 MG Tablet PO (11:52)
[2018-01-07] MEDS: Loratadine 10 MG Tablet PO (11:53)
[2018-01-07] MEDS: glipiZIDE 5 MG Tablet PO (11:54)
[2018-01-07] MEDS: LINAGLIPTIN 5 MG TABLET PO (11:54)
[2018-01-07] MEDS: traMADol 50 MG Tablet 100 MG PO ×2 (11:55→22:37)
[2018-01-07] MEDS: HYDROCHLOROTHIAZIDE 12.5 MG CAPSULE PO (12:23)
[2018-01-07 12:25] LABS: ACT Activated Clotting Time 142 sec (74-137)
--- NOTE | 2018-01-07 13:30 | NURSING ---
Sheath pulled by Marco MONGE from laborer carpentry dock at 1235. After holding manual pressure hematoma was noted to surrounding area, Marco again began holding pressure to control the artery, laborer carpentry dock called for extra assistance. Mike MONGE arrived and assumed control of site from Marco and pressed out hematoma, hemostasis acheived at 1320.
--- NOTE | 2018-01-07 14:16 | PCM.DC.CCA ---
Discharge Diet: Low fat/ Low Cholesterol May shower in (days): 1 May resume sexual activity in: 1 week - if no groin problems occur. Lifting Restrictions: 10 pounds and also avoid any pushing or pulling for 3 days after your test. Call your doctor if your incision/area has: Increased Pain/ Swelling, Increased Redness, Foul Smelling Discharge, Swelling at the incision site Call your doctor if you observe: Fever of 101 or Higher, Shortness of breath, Chest pain Remove Dressing in (days):: 1 Additional Dressing/Incision Instructions:: Keep the dressing (bandage) on until the next morning. You may then shower, but do not take a tub bath for 5 days after your test. It is normal to have some tenderness and discomfort at the puncture site. Sometimes bruising also occurs. However, if pain, numbness, or coldness occurs below the puncture site (in your leg, toes, arms or fingers) call your doctor at once. You may have a small, marble sized knot at the puncture site. This is normal. Do not rub it. It will go away in 4-6 weeks. Bleeding can occur from the area where the puncture was done. Blood may spurt or drip from the site. If blood spurts, apply pressure right away to stop bleeding and call 911. Although rare, bleeding into the tissue (hematoma) can also occur. If this happens, a large, firm area goose egg under the skin will appear. If any of these occur, lie down as flat as you can and have someone apply firm pressure to the cath site with a gauze pad or a clean washcloth for 10-15 minutes. Call 911 or go to the Emergency Department. Additional Instructions: You can NOT stop the plavix for at least one year When you see us in the office we will talk about cardiac rehab Allergies/Adverse Reactions: Allergies bacitracin [From Neosporin ([id number]-hfc-[id number])] Allergy (Verified 12/30/17 13:01) rash estrogens, conjugated [From Premarin] Allergy (Verified 12/30/17 13:01) Rash hydrocodone bitartrate [From Vicodin] Allergy (Verified 12/30/17 13:01) Rash latex Allergy (Verified 12/30/17 13:01) Rash neomycin [From Neosporin ([id number]-tfx-jliiq)] Allergy (Verified 12/30/17 13:01) rash polymyxin B [From Neosporin ([id number]-[id number])] Allergy (Verified 12/30/17 13:01) rash pseudoephedrine HCl [From Sudafed] Allergy (Verified 12/30/17 13:01) Shortness of breath azithromycin Adverse Reaction (Verified 12/30/17 13:01) GI Intolerance ibuprofen Adverse Reaction (Verified 12/30/17 13:01) Unknown tolnaftate [From [employer] Adverse Reaction (Verified 12/30/17 13:01) Unknown Medications to take at Discharge Aspirin [Aspirin, Baby] 81 mg PO DAILY@0800 01/26/15 Atorvastatin Calcium [Lipitor] 20 mg PO QHS 01/26/15 Metformin(XR) [Glucophage Xr] 1,000 mg PO BID 01/26/15 loratadine 10 mg capsule 10 mg PO QDAY 06/21/17 famotidine 20 mg tablet 20 mg PO QDAY 06/22/17 gabapentin 600 mg tablet 800 mg PO DAILY tab 06/22/17 glipizide 5 mg tablet 5 mg PO QDAY 06/22/17 isosorbide mononitrate ER 30 mg tablet,extended release 24 hr 30 mg PO BID tab 06/22/17 montelukast 10 mg tablet 10 mg PO QPM 06/22/17 multivitamin tablet 1 tab PO QDAY 06/22/17 nabumetone 750 mg tablet 750 mg PO QDAY tab 06/22/17 naproxen sodium 220 mg tablet 220 mg PO Q12H PRN 06/22/17 potassium chloride ER 10 mEq tablet,extended release(part/cryst) 20 meq PO TID tab 06/22/17 tramadol 50 mg tablet 100 mg PO PRN PRN tab 06/22/17 trazodone 150 mg tablet 200 mg PO QHS tab 06/22/17 venlafaxine ER 225 mg tablet,extended release 24 hr 225 mg PO QAM 06/22/17 Sennosides/Docusate Sodium [Senna Plus Tablet] 2 ea PO QHS 07/26/17 Docusate Sodium [Colace] 100 mg PO BID PRN PRN #10 cap 07/27/17 proMETHazine tablet [Phenergan] 25 mg PO Q4H PRN PRN #10 tab 07/27/17 Lorazepam [Ativan] 1 mg PO Q4H PRN PRN 10/11/17 Cyclobenzaprine [Flexeril] 10 mg PO TID PRN #20 tab 12/23/17 Quetiapine Fumarate [Seroquel] 25 mg PO QHS 12/23/17 alogliptin 25 mg tablet 25 mg PO QDAY 12/30/17 atenolol 100 mg tablet 100 mg PO QDAY 12/30/17 clopidogrel 75 mg tablet 75 mg PO QDAY #30 tab 12/30/17 hydrochlorothiazide 12.5 mg capsule 12.5 mg PO QDAY 12/30/17 naproxen 500 mg tablet 500 mg PO BID PRN #20 tab 12/30/17 Primary Care Physician: Meme Santiago DO [Primary Care Provider] - Test Results: Test results from this visit will be discussed in further detail at your follow-up appointment, if applicable. Please Follow Up With: Walter Salinas NP-C When: 01/25/2018 at 0930 Cardiac Rehabilitation Info Cardiac Rehabilitation Program Information: Cardiac Rehabilitation is important for patients like you who are recovering from a heart problem. Cardiac rehabilitation programs are recognized as integral to the continued care of the patient with coronary heart disease. The cardiac rehabilitation program is designed to optimize a patient's physical, psychological, and social functioning. Health day care aide work in cardiac rehabilitation programs and assist you with getting the treatments you need to get stronger and healthier - like exercise, healthy eating habits, and medications. Cardiac rehabilitation has been show to help people with heart problems live longer and have better life enjoyment than people who do not go to cardiac rehabilitation. Please contact the Cardiac Rehabilitation Program at [facility] at in two weeks if you have not heard from them.
--- NOTE | 2018-01-07 14:20 | DCINST_ITS ---
Discharge Diet: Low fat/ Low Cholesterol May shower in (days): 1 May resume sexual activity in: 1 week - if no groin problems occur. Lifting Restrictions: 10 pounds and also avoid any pushing or pulling for 3 days after your test. Call your doctor if your incision/area has: Increased Pain/ Swelling, Increased Redness, Foul Smelling Discharge, Swelling at the incision site Call your doctor if you observe: Fever of 101 or Higher, Shortness of breath, Chest pain Remove Dressing in (days):: 1 Additional Dressing/Incision Instructions:: Keep the dressing (bandage) on until the next morning. You may then shower, but do not take a tub bath for 5 days after your test. It is normal to have some tenderness and discomfort at the puncture site. Sometimes bruising also occurs. However, if pain, numbness, or coldness occurs below the puncture site (in your leg, toes, arms or fingers) call your doctor at once. You may have a small, marble sized knot at the puncture site. This is normal. Do not rub it. It will go away in 4-6 weeks. Bleeding can occur from the area where the puncture was done. Blood may spurt or drip from the site. If blood spurts, apply pressure right away to stop bleeding and call 911. Although rare, bleeding into the tissue (hematoma) can also occur. If this happens, a large, firm area goose egg under the skin will appear. If any of these occur, lie down as flat as you can and have someone apply firm pressure to the cath site with a gauze pad or a clean washcloth for 10-15 minutes. Call 911 or go to the Emergency Department. Additional Instructions: You can NOT stop the plavix for at least one year When you see us in the office we will talk about cardiac rehab Allergies/Adverse Reactions: Allergies bacitracin [From Neosporin ([id number])] Allergy (Verified 12/30/17 13:01) rash estrogens, conjugated [From Premarin] Allergy (Verified 12/30/17 13:01) Rash hydrocodone bitartrate [From Vicodin] Allergy (Verified 12/30/17 13:01) Rash latex Allergy (Verified 12/30/17 13:01) Rash neomycin [From Neosporin ([id number]-jir-slpfo)] Allergy (Verified 12/30/17 13:01) rash polymyxin B [From Neosporin (kef-drk-wupse)] Allergy (Verified 12/30/17 13:01) rash pseudoephedrine HCl [From Sudafed] Allergy (Verified 12/30/17 13:01) Shortness of breath azithromycin Adverse Reaction (Verified 12/30/17 13:01) GI Intolerance ibuprofen Adverse Reaction (Verified 12/30/17 13:01) Unknown tolnaftate [From [employer] Adverse Reaction (Verified 12/30/17 13:01) Unknown Medications to take at Discharge Aspirin [Aspirin, Baby] 81 mg PO DAILY@0800 01/26/15 Atorvastatin Calcium [Lipitor] 20 mg PO QHS 01/26/15 Metformin(XR) [Glucophage Xr] 1,000 mg PO BID 01/26/15 loratadine 10 mg capsule 10 mg PO QDAY 06/21/17 famotidine 20 mg tablet 20 mg PO QDAY 06/22/17 gabapentin 600 mg tablet 800 mg PO DAILY tab 06/22/17 glipizide 5 mg tablet 5 mg PO QDAY 06/22/17 isosorbide mononitrate ER 30 mg tablet,extended release 24 hr 30 mg PO BID tab 06/22/17 montelukast 10 mg tablet 10 mg PO QPM 06/22/17 multivitamin tablet 1 tab PO QDAY 06/22/17 nabumetone 750 mg tablet 750 mg PO QDAY tab 06/22/17 naproxen sodium 220 mg tablet 220 mg PO Q12H PRN 06/22/17 potassium chloride ER 10 mEq tablet,extended release(part/cryst) 20 meq PO TID tab 06/22/17 tramadol 50 mg tablet 100 mg PO PRN PRN tab 06/22/17 trazodone 150 mg tablet 200 mg PO QHS tab 06/22/17 venlafaxine ER 225 mg tablet,extended release 24 hr 225 mg PO QAM 06/22/17 Sennosides/Docusate Sodium [Senna Plus Tablet] 2 ea PO QHS 07/26/17 Docusate Sodium [Colace] 100 mg PO BID PRN PRN #10 cap 07/27/17 proMETHazine tablet [Phenergan] 25 mg PO Q4H PRN PRN #10 tab 07/27/17 Lorazepam [Ativan] 1 mg PO Q4H PRN PRN 10/11/17 Cyclobenzaprine [Flexeril] 10 mg PO TID PRN #20 tab 12/23/17 Quetiapine Fumarate [Seroquel] 25 mg PO QHS 12/23/17 alogliptin 25 mg tablet 25 mg PO QDAY 12/30/17 atenolol 100 mg tablet 100 mg PO QDAY 12/30/17 clopidogrel 75 mg tablet 75 mg PO QDAY #30 tab 12/30/17 hydrochlorothiazide 12.5 mg capsule 12.5 mg PO QDAY 12/30/17 naproxen 500 mg tablet 500 mg PO BID PRN #20 tab 12/30/17 Primary Care Physician: Meme Santiago DO [Primary Care Provider] - Test Results: Test results from this visit will be discussed in further detail at your follow- up appointment, if applicable. Please Follow Up With: Walter Salinas NP-C When: 01/25/2018 at 0930 Cardiac Rehabilitation Info Cardiac Rehabilitation Program Information: Cardiac Rehabilitation is important for patients like you who are recovering from a heart problem. Cardiac rehabilitation programs are recognized as integral to the continued care of the patient with coronary heart disease. The cardiac rehabilitation program is designed to optimize a patient's physical, psychological, and social functioning. Health cardiac care unit nurse work in cardiac rehabilitation programs and assist you with getting the treatments you need to get stronger and healthier - like exercise, healthy eating habits, and medications. Cardiac rehabilitation has been show to help people with heart problems live longer and have better life enjoyment than people who do not go to cardiac rehabilitation. Please contact the Cardiac Rehabilitation Program at [facility] at in two weeks if you have not heard from them.
--- NOTE | 2018-01-07 14:35 | CRPHASE1 ---
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 Phase I Charge:: Level I - Education Risk Factors/Lifestyle Smoking Status: Never smoker Hx Hypertension: Yes Hx Diabetes Mellitus Type 2: Yes - 2009 Hx Dyslipidemia: Yes Hx Obesity: Yes Height: 1.65 m Weight:: 113.398 kg BMI: 41.5 Post-Menopausal: Yes Stress: Long-standing ETOH: No Caffeine: Yes Substance Abuse: No Family History: Family History (Last Reviewed 12/30/17 @ 13:01 by Valerie Galvez) Mother Heart disease Hypertension Hyperlipidemia Father Heart disease Hypertension Hyperlipidemia Phase I Education Given On:: S[place], Nutrition, Antiplatelet medication Issues Affecting Care:: None Knowledge of Condition:: Yes Learning Preferences: Verbal Hospital Course Pain Description: Sharp, Tightness Cardiac Cath Date:: 01/07/18 Medical/Surgical History [place]:: No Angina:: Yes Pulmonary:: Yes [place]:: Yes Diabetes Type II:: Yes - 2009 Hypertension:: Yes Dyslipidemia:: Yes Arthritis:: Yes GERD:: Yes Depression:: Yes Anxiety:: Yes CABG: No PTCA:: No ICD:: No Pacemaker:: No Orthopedic:: Yes Discharge/Home/Social Eval Discharge Disposition: Home
[2018-01-07] MEDS: proMETHazine 25 MG Tablet PO (14:40)
--- NOTE | 2018-01-07 14:40 | CRPHASE1_ITS ---
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 Phase I Charge:: Level I - Education Risk Factors/Lifestyle Smoking Status: Never smoker Hx Hypertension: Yes Hx Diabetes Mellitus Type 2: Yes - 2009 Hx Dyslipidemia: Yes Hx Obesity: Yes Height: 1.65 m Weight:: 113.398 kg BMI: 41.5 Post-Menopausal: Yes Stress: Long-standing ETOH: No Caffeine: Yes Substance Abuse: No Family History: Family History (Last Reviewed 12/30/17 @ 13:01 by Valerie Galvez) Mother Heart disease Hypertension Hyperlipidemia Father Heart disease Hypertension Hyperlipidemia Phase I Education Given On:: [place], Nutrition, Antiplatelet medication Issues Affecting Care:: None Knowledge of Condition:: Yes Learning Preferences: Verbal Hospital Course Pain Description: Sharp, Tightness Cardiac Cath Date:: 01/07/18 Medical/Surgical History [place]:: No Angina:: Yes Pulmonary:: Yes [place]:: Yes Diabetes Type II:: Yes - 2009 Hypertension:: Yes Dyslipidemia:: Yes Arthritis:: Yes GERD:: Yes Depression:: Yes Anxiety:: Yes CABG: No PTCA:: No ICD:: No Pacemaker:: No Orthopedic:: Yes Discharge/Home/Social Eval Discharge Disposition: Home
--- NOTE | 2018-01-07 14:41 | CRPH1.INSTRU ---
General Education CAD and cardiac anatomy and function:: Patient communicates acknowledgment Explanation of diagnoses and procedures:: Patient communicates acknowledgment Sign/Symptoms of [place]:: Patient communicates acknowledgment Antiplatelet therapy: Patient communicates acknowledgment Proper use of NTG-SL: Patient communicates acknowledgment Emergency procedures and activation of EMS: Patient communicates acknowledgment Compliance of all prescribed medications: Patient communicates acknowledgment Smoking Patient Nicotine/Smoking Risk Factors Are:: Never smoked Dyslipidemia Recommendations Include:: Lipid profile not available - SHE STATES HIGH CHOLESTROL Overweight/Obesity Patient Overweight/Obesity Risk Factors Are:: Obesity - > or = 30 Recommendations Include:: Weight loss of 5-10% Overweight/Obesity:: Patient communicates acknowledgment Hypertension Recommendations Include:: Maintain BP <130/85, BP <130/80 if diabetic, DASH dietary guidelines, Decrease/maintain normal body weight Hypertension:: Patient communicates acknowledgment Heart Disease Patient Heart Disease Risk Factors Are:: Family history of heart disease < 65 years old Recommendations Include:: Educated family members of their risk Heart Disease Response Code:: Patient communicates acknowledgment Diabetes Patient Diabetes Risk Factors Are:: Elevated blood sugars Recommendations Include:: Maintain fasting blood sugars 70-110 md/dL, Maintain HgbA1c of 6% or less, Monitor blood sugar as prescribed, Diabetic dietary guidelines, Decrease/maintain body weight Diabetes:: Patient communicates acknowledgment Metabolic Syndrome Patient Metabolic Syndrome Risk Factors Are [3 of 5]:: Waist circumference > 35 [female] or 40 [male], High triglyceride >150, Hypertension Recommendations Include:: Patient is diabetic Metabolic Syndrome Response Code:: Patient communicates acknowledgment Sedentary Patient Sedentary Risk Factors Are:: Lack of regular exercise Recommendations Include:: Benefits of regular exercise Sedentary Response Code:: Patient communicates acknowledgment Stress Patient Stress Risk Factors Are:: Patient denies stress as a risk factor Stress Response Code:: Patient communicates acknowledgment
[2018-01-07] MEDS: DiphenhydrAMINE 50 MG/ML Syringe 25 MG IV (15:38)
[2018-01-07] MEDS: Ketorolac 30 MG/ML Syringe IV (15:39)
[2018-01-07] MEDS: Ondansetron 4 MG/2 ML Vial IV (15:39)
[2018-01-07] MEDS: traZODone 100 MG Tablet 200 MG PO (17:51)
[2018-01-07] MEDS: Montelukast 10 MG Tablet PO (17:51)
[2018-01-07] MEDS: Isosorbide Mononitrate 30 MG Tablet PO (17:52)
[2018-01-07] MEDS: Atorvastatin Calcium 20 MG Tablet PO (17:55)
[2018-01-07] MEDS: QUEtiapine 25 MG Tablet PO (17:56)
[2018-01-08] VITALS (13 sets, daily range): BP systolic 95–133; BP diastolic 54–85; PULSE 77–92; RESP 8–16; TEMP 36.4–36.7; O2SAT 94–98
[2018-01-08 00:51] LABS: Bedside Glucose 218 mg/dL (70-110)
[2018-01-08 04:58] LABS: Hemoglobin 10.9 g/dl (12.0-15.0); Mean Corp Hgb Conc 34.1 g/gl (32-36); Mean Corpuscular Hgb 27.9 pg (27.0-32.0); Mean Corpuscular Volume 82.1 fL (81-99); Platelet Count 228 K/mm3 (150-450); RBC Distribution Width CV 13.7 % (11.6-14.6)
[2018-01-08 05:00] LABS: Scan Indicated on CBC? Y/N NO
[2018-01-08 05:13] LABS: Anion Gap 7 (5-15); BUN 19 mg/dL (7-18); BUN/Creat Ratio 20.7 RATIO (10-20); Calcium,Total 8.5 mg/dL (8.5-10.1); Chloride 106 mmol/L (98-107); Cholesterol 135 mg/dL (200); Creatinine, Serum 0.92 mg/dL (0.55-1.02); EST Glomerular Filtration Rate 70 mL/min (>60); Est Glom Filt Rate - Afr Amer 84 mL/min (>60); Estimated Creatinine Clearance 68.75 ml/min; Glucose 148 mg/dL (74-106); High Density Lipoprotein 30 mg/dL; Potassium 3.9 mmol/L (3.5-5.1); Sodium Level 144 mmol/L (136-145); Triglycerides 382 mg/dL; Very Low Density Lipoprotein 76 mg/dL (5-40)
[2018-01-08 07:30] LABS: Bedside Glucose 145 mg/dL (70-110)
[2018-01-08] MEDS: Aspirin 81 MG TAB.CHEW PO (07:49)
[2018-01-08] MEDS: Multivitamins,Therapeutic Tablet 1 TABLET PO (07:49)
[2018-01-08] MEDS: Gabapentin 800 MG Tablet PO (07:49)
[2018-01-08] MEDS: glipiZIDE 5 MG Tablet PO (07:49)
[2018-01-08] MEDS: Isosorbide Mononitrate 30 MG Tablet PO (09:25)
[2018-01-08] MEDS: Atenolol 100 MG Tablet PO (09:25)
[2018-01-08] MEDS: Venlafaxine XR 75 MG Capsule 225 MG PO (09:25)
[2018-01-08] MEDS: HYDROCHLOROTHIAZIDE 12.5 MG CAPSULE PO (09:25)
[2018-01-08] MEDS: Clopidogrel Bisulfate 75 MG Tablet PO (09:25)
[2018-01-08] MEDS: Famotidine 20 MG Tablet PO (09:25)
[2018-01-08] MEDS: Loratadine 10 MG Tablet PO (09:25)
[2018-01-08] MEDS: LINAGLIPTIN 5 MG TABLET PO (09:25)
--- NOTE | 2018-01-08 10:00 | EKG12_ITS ---
Test Reason : AM EKG Blood Pressure : / mmHG Vent. Rate : 076 BPM Atrial Rate : 076 BPM P-R Int : 180 ms QRS Dur : 092 ms QT Int : 418 ms P-R-T Axes : 034 016 006 degrees QTc Int : 470 ms Normal sinus rhythm Nonspecific T wave abnormality Confirmed by ABEL LAZARO, TOM ([id number]), video editor KAIT ELMORE ([id number]) on 01/12/2018 11:24:20 AM Referred By: Darnell Montelongo Confirmed By:TOM ROMAN MD
--- NOTE | 2018-01-08 10:29 | PCM.DC ---
- Discharge Diagnoses Current Active Problems: Current Active and Chronic Problems (Last Reviewed 12/30/17 @ 13:01 by Valerie Galvez) Arteriosclerotic heart disease (ASHD) (Acute) Stent to RCA 01/06/2018 Reason(s) for Visit for Discharge Instructions: Cardiac catheterization You will use the following diet at home:: Regular, Calorie/Carbohydrate Controlled (specify 1200, 1400, etc), Cardiac - Calorie controlled: 1800 tommy Your food should be the consistency of: Regular Discharge Activity: May Drive - May not drive: 48 hours, May Shower - May shower: 1 day, May Take a Tub Bath - May take a tub bath in 7 days May shower in (days): 1 May resume sexual activity in: 1 week - if no groin problems occur. Call your doctor if your incision/area has: Increased Pain/ Swelling, Increased Redness, Foul Smelling Discharge, Swelling at the incision site Call your doctor if you observe: Fever of 101 or Higher, Shortness of breath, Dizziness, Fainting spells, Swelling in the ankles, Chest pain, Calf discomfort, Uncontrolled pain Remove Dressing in (days):: 1 Cleanse incision/area with: Soap & Water Additional Dressing/Incision Instructions:: Keep the dressing (bandage) on until the next morning. You may then shower, but do not take a tub bath for 5 days after your test. It is normal to have some tenderness and discomfort at the puncture site. Sometimes bruising also occurs. However, if pain, numbness, or coldness occurs below the puncture site (in your leg, toes, arms or fingers) call your doctor at once. You may have a small, marble sized knot at the puncture site. This is normal. Do not rub it. It will go away in 4-6 weeks. Bleeding can occur from the area where the puncture was done. Blood may spurt or drip from the site. If blood spurts, apply pressure right away to stop bleeding and call 911. Although rare, bleeding into the tissue (hematoma) can also occur. If this happens, a large, firm area goose egg under the skin will appear. If any of these occur, lie down as flat as you can and have someone apply firm pressure to the cath site with a gauze pad or a clean washcloth for 10-15 minutes. Call 911 or go to the Emergency Department. Additional Instructions: Hold metformin until 01/10/2018 then resume. [facility] office to arrange outpatient laboratory follow-up with a: [facility] Allergies/Adverse Reactions: Allergies bacitracin [From Neosporin ([id number]-isd-[id number])] Allergy (Verified 12/30/17 13:01) rash estrogens, conjugated [From Premarin] Allergy (Verified 12/30/17 13:01) Rash hydrocodone bitartrate [From Vicodin] Allergy (Verified 12/30/17 13:01) Rash latex Allergy (Verified 12/30/17 13:01) Rash neomycin [From Neosporin (mqq-xpz-vyowc)] Allergy (Verified 12/30/17 13:01) rash polymyxin B [From Neosporin (iis-wym-dndmy)] Allergy (Verified 12/30/17 13:01) rash pseudoephedrine HCl [From Sudafed] Allergy (Verified 12/30/17 13:01) Shortness of breath azithromycin Adverse Reaction (Verified 12/30/17 13:01) GI Intolerance ibuprofen Adverse Reaction (Verified 12/30/17 13:01) Unknown tolnaftate [From [employer] Adverse Reaction (Verified 12/30/17 13:01) Unknown Medications to take at Discharge Aspirin [Aspirin, Baby] 81 mg PO DAILY@0800 01/26/15 Atorvastatin Calcium [Lipitor] 20 mg PO QHS 01/26/15 Metformin(XR) [Glucophage Xr] 1,000 mg PO BID 01/26/15 loratadine 10 mg capsule 10 mg PO QDAY 06/21/17 famotidine 20 mg tablet 20 mg PO QDAY 06/22/17 gabapentin 600 mg tablet 800 mg PO DAILY tab 06/22/17 glipizide 5 mg tablet 5 mg PO QDAY 06/22/17 isosorbide mononitrate ER 30 mg tablet,extended release 24 hr 30 mg PO BID tab 06/22/17 montelukast 10 mg tablet 10 mg PO QPM 06/22/17 multivitamin tablet 1 tab PO QDAY 06/22/17 nabumetone 750 mg tablet 750 mg PO QDAY tab 06/22/17 naproxen sodium 220 mg tablet 220 mg PO Q12H PRN 06/22/17 potassium chloride ER 10 mEq tablet,extended release(part/cryst) 20 meq PO TID tab 06/22/17 tramadol 50 mg tablet 100 mg PO PRN PRN tab 06/22/17 trazodone 150 mg tablet 200 mg PO QHS tab 06/22/17 venlafaxine ER 225 mg tablet,extended release 24 hr 225 mg PO QAM 06/22/17 Sennosides/Docusate Sodium [Senna Plus Tablet] 2 ea PO QHS 07/26/17 Cyclobenzaprine [Flexeril] 10 mg PO TID PRN #20 tab 12/23/17 Quetiapine Fumarate [Seroquel] 25 mg PO QHS 12/23/17 alogliptin 25 mg tablet 25 mg PO QDAY 12/30/17 atenolol 100 mg tablet 100 mg PO QDAY 12/30/17 clopidogrel 75 mg tablet 75 mg PO QDAY #30 tab 12/30/17 hydrochlorothiazide 12.5 mg capsule 12.5 mg PO QDAY 12/30/17 Linagliptin [Tradjenta] 5 mg PO DAILY tablet 01/08/18 Primary Care Physician: Meme Santiago DO [Primary Care Provider] - Test Results: Test results from this visit will be discussed in further detail at your follow-up appointment, if applicable. Please Follow Up With: Watler Salinas NP-C When: 01/25/2018 at 0930
--- NOTE | 2018-01-08 10:33 | DCINST_ITS ---
- Discharge Diagnoses Current Active Problems: Current Active and Chronic Problems (Last Reviewed 12/30/17 @ 13:01 by Valerie Galvez) Arteriosclerotic heart disease (ASHD) (Acute) Stent to RCA 01/06/2018 Reason(s) for Visit for Discharge Instructions: Cardiac catheterization You will use the following diet at home:: Regular, Calorie/Carbohydrate Controlled (specify 1200, 1400, etc), Cardiac - Calorie controlled: 1800 tommy Your food should be the consistency of: Regular Discharge Activity: May Drive - May not drive: 48 hours, May Shower - May shower : 1 day, May Take a Tub Bath - May take a tub bath in 7 days May shower in (days): 1 May resume sexual activity in: 1 week - if no groin problems occur. Call your doctor if your incision/area has: Increased Pain/ Swelling, Increased Redness, Foul Smelling Discharge, Swelling at the incision site Call your doctor if you observe: Fever of 101 or Higher, Shortness of breath, Dizziness, Fainting spells, Swelling in the ankles, Chest pain, Calf discomfort , Uncontrolled pain Remove Dressing in (days):: 1 Cleanse incision/area with: Soap & Water Additional Dressing/Incision Instructions:: Keep the dressing (bandage) on until the next morning. You may then shower, but do not take a tub bath for 5 days after your test. It is normal to have some tenderness and discomfort at the puncture site. Sometimes bruising also occurs. However, if pain, numbness, or coldness occurs below the puncture site (in your leg, toes, arms or fingers) call your doctor at once. You may have a small, marble sized knot at the puncture site. This is normal. Do not rub it. It will go away in 4-6 weeks. Bleeding can occur from the area where the puncture was done. Blood may spurt or drip from the site. If blood spurts, apply pressure right away to stop bleeding and call 911. Although rare, bleeding into the tissue (hematoma) can also occur. If this happens, a large, firm area goose egg under the skin will appear. If any of these occur, lie down as flat as you can and have someone apply firm pressure to the cath site with a gauze pad or a clean washcloth for 10-15 minutes. Call 911 or go to the Emergency Department. Additional Instructions: Hold metformin until 01/10/2018 then resume. [facility] office to arrange outpatient laboratory follow-up with a: [facility] Allergies/Adverse Reactions: Allergies bacitracin [From Neosporin ([id number])] Allergy (Verified 12/30/17 13:01) rash estrogens, conjugated [From Premarin] Allergy (Verified 12/30/17 13:01) Rash hydrocodone bitartrate [From Vicodin] Allergy (Verified 12/30/17 13:01) Rash latex Allergy (Verified 12/30/17 13:01) Rash neomycin [From Neosporin ([id number])] Allergy (Verified 12/30/17 13:01) rash polymyxin B [From Neosporin ([id number])] Allergy (Verified 12/30/17 13:01) rash pseudoephedrine HCl [From Sudafed] Allergy (Verified 12/30/17 13:01) Shortness of breath azithromycin Adverse Reaction (Verified 12/30/17 13:01) GI Intolerance ibuprofen Adverse Reaction (Verified 12/30/17 13:01) Unknown tolnaftate [From NuVasive.] Adverse Reaction (Verified 12/30/17 13:01) Unknown Medications to take at Discharge Aspirin [Aspirin, Baby] 81 mg PO DAILY@0800 01/26/15 Atorvastatin Calcium [Lipitor] 20 mg PO QHS 01/26/15 Metformin(XR) [Glucophage Xr] 1,000 mg PO BID 01/26/15 loratadine 10 mg capsule 10 mg PO QDAY 06/21/17 famotidine 20 mg tablet 20 mg PO QDAY 06/22/17 gabapentin 600 mg tablet 800 mg PO DAILY tab 06/22/17 glipizide 5 mg tablet 5 mg PO QDAY 06/22/17 isosorbide mononitrate ER 30 mg tablet,extended release 24 hr 30 mg PO BID tab 06/22/17 montelukast 10 mg tablet 10 mg PO QPM 06/22/17 multivitamin tablet 1 tab PO QDAY 06/22/17 nabumetone 750 mg tablet 750 mg PO QDAY tab 06/22/17 naproxen sodium 220 mg tablet 220 mg PO Q12H PRN 06/22/17 potassium chloride ER 10 mEq tablet,extended release(part/cryst) 20 meq PO TID tab 06/22/17 tramadol 50 mg tablet 100 mg PO PRN PRN tab 06/22/17 trazodone 150 mg tablet 200 mg PO QHS tab 06/22/17 venlafaxine ER 225 mg tablet,extended release 24 hr 225 mg PO QAM 06/22/17 Sennosides/Docusate Sodium [Senna Plus Tablet] 2 ea PO QHS 07/26/17 Cyclobenzaprine [Flexeril] 10 mg PO TID PRN #20 tab 12/23/17 Quetiapine Fumarate [Seroquel] 25 mg PO QHS 12/23/17 alogliptin 25 mg tablet 25 mg PO QDAY 12/30/17 atenolol 100 mg tablet 100 mg PO QDAY 12/30/17 clopidogrel 75 mg tablet 75 mg PO QDAY #30 tab 12/30/17 hydrochlorothiazide 12.5 mg capsule 12.5 mg PO QDAY 12/30/17 Linagliptin [Tradjenta] 5 mg PO DAILY tablet 01/08/18 Primary Care Physician: Meme Santiago DO [Primary Care Provider] - Test Results: Test results from this visit will be discussed in further detail at your follow- up appointment, if applicable. Please Follow Up With: Walter Salinas NP-C When: 01/25/2018 at 0930
--- NOTE | 2018-01-08 10:36 | DS.PCM_ITS ---
Discharge Date and Diagnosis - Problem List Patient Problems: Active and Suspected Problems (Last Reviewed 12/30/17 @ 13:01 by Valerie Galvez) Arteriosclerotic heart disease (ASHD) (Acute) Stent to RCA 01/06/2018 Date of Admission: 01/07/15 Date of Discharge: 01/08/18 - Primary Discharge Diagnosis Active and Suspected Problems (Last Reviewed 12/30/17 @ 13:01 by Valerie Galvez) Arteriosclerotic heart disease (ASHD) (Acute) Stent to RCA 01/06/2018 - Secondary Discharge Diagnosis Chronic Problems (Last Reviewed 12/30/17 @ 13:01 by Valerie Galvez) Obesity (BMI 30-39.9) (Chronic) Palpitations (Chronic) DM type 2 (diabetes mellitus, type 2) (Chronic) Dyslipidemia (Chronic) HTN (hypertension) (Chronic) Hospital Course and Treatment Procedures: Cardiac catheterization - Percutaneous intervention Summary of Care Provided: The patient is a 47 year old with a history of chest discomfort concerning for angina pectoris superimposed upon dyslipidemia who presented for diagnostic cardiac catheterization on 01/07/2018. She was found to have angiographically significant appearing CAD involving the RCA distribution. She subsequently underwent RCA PCI/JENNA. She was monitored overnight in the ICU. On 01/08/2018 she appeared by vital signs to be hemodynamically stable. Her laboratory studies demonstrated an H&H of 10.9 and 32.0 which did demonstrate a mild decrease in her hemoglobin compared to her most recent hemoglobin which may have been related to IV fluid/delusional effect. Her cardiac rhythm remained sinus rhythm. Her ECG demonstrated no acute ECG changes. Her cardiac catheterization site demonstrated an area of ecchymoses. Her femoral pulse was 2+/4+. She appeared to have no obvious ongoing hematoma. She stated she felt well with no other acute symptoms or adverse events. It was felt the patient could be released home for continued outpatient cardiovascular follow-up. [] Discharge Diet: Low fat/ Low Cholesterol Discharge Activity: May Drive - May not drive: 48 hours, May Shower - May shower : 1 day, May Take a Tub Bath - May take a tub bath in 7 days May shower in (days): 1 May resume sexual activity in: 1 week - if no groin problems occur. Call your doctor if your incision/area has: Increased Pain/ Swelling, Increased Redness, Foul Smelling Discharge, Swelling at the incision site Call your doctor if you observe: Fever of 101 or Higher, Shortness of breath, Dizziness, Fainting spells, Swelling in the ankles, Chest pain, Calf discomfort , Uncontrolled pain Remove Dressing in (days):: 1 Cleanse incision/area with: Soap & Water Additional Dressing/Incision Instructions:: Keep the dressing (bandage) on until the next morning. You may then shower, but do not take a tub bath for 5 days after your test. It is normal to have some tenderness and discomfort at the puncture site. Sometimes bruising also occurs. However, if pain, numbness, or coldness occurs below the puncture site (in your leg, toes, arms or fingers) call your doctor at once. You may have a small, marble sized knot at the puncture site. This is normal. Do not rub it. It will go away in 4-6 weeks. Bleeding can occur from the area where the puncture was done. Blood may spurt or drip from the site. If blood spurts, apply pressure right away to stop bleeding and call 911. Although rare, bleeding into the tissue (hematoma) can also occur. If this happens, a large, firm area goose egg under the skin will appear. If any of these occur, lie down as flat as you can and have someone apply firm pressure to the cath site with a gauze pad or a clean washcloth for 10-15 minutes. Call 911 or go to the Emergency Department. Home Medications: Medications to take at Discharge Aspirin [Aspirin, Baby] 81 mg PO DAILY@0800 01/26/15 Atorvastatin Calcium [Lipitor] 20 mg PO QHS 01/26/15 Metformin(XR) [Glucophage Xr] 1,000 mg PO BID 01/26/15 loratadine 10 mg capsule 10 mg PO QDAY 06/21/17 famotidine 20 mg tablet 20 mg PO QDAY 06/22/17 gabapentin 600 mg tablet 800 mg PO DAILY tab 06/22/17 glipizide 5 mg tablet 5 mg PO QDAY 06/22/17 isosorbide mononitrate ER 30 mg tablet,extended release 24 hr 30 mg PO BID tab 06/22/17 montelukast 10 mg tablet 10 mg PO QPM 06/22/17 multivitamin tablet 1 tab PO QDAY 06/22/17 nabumetone 750 mg tablet 750 mg PO QDAY tab 06/22/17 naproxen sodium 220 mg tablet 220 mg PO Q12H PRN 06/22/17 potassium chloride ER 10 mEq tablet,extended release(part/cryst) 20 meq PO TID tab 06/22/17 tramadol 50 mg tablet 100 mg PO PRN PRN tab 06/22/17 trazodone 150 mg tablet 200 mg PO QHS tab 06/22/17 venlafaxine ER 225 mg tablet,extended release 24 hr 225 mg PO QAM 06/22/17 Sennosides/Docusate Sodium [Senna Plus Tablet] 2 ea PO QHS 07/26/17 Cyclobenzaprine [Flexeril] 10 mg PO TID PRN #20 tab 12/23/17 Quetiapine Fumarate [Seroquel] 25 mg PO QHS 12/23/17 alogliptin 25 mg tablet 25 mg PO QDAY 12/30/17 atenolol 100 mg tablet 100 mg PO QDAY 12/30/17 clopidogrel 75 mg tablet 75 mg PO QDAY #30 tab 12/30/17 hydrochlorothiazide 12.5 mg capsule 12.5 mg PO QDAY 12/30/17 Linagliptin [Tradjenta] 5 mg PO DAILY tablet 01/08/18 Primary Care Physician: Meme Santiago DO [Primary Care Provider] - Please Follow Up With: Walter Salinas NP-C When: 01/25/2018 at 0930 Additional Instructions: You can NOT stop the plavix for at least one year When you see us in the office we will talk about cardiac rehab Disposition: Home Minutes spent on discharge:: 30 Patient Condition:: Stable Medical Necessity - Tobacco Use Smoking Status: Never smoker Meaningful Use Info Meaningful Use Diagnoses (Choose all that apply): None applicable
== END 2018-01-08 10:32 | disposition home or self-care (01) ==
LOC: CLSP 07:26 → ICU 10:54
PROVIDERS: Family Provider Family Medicine; PCP Family Medicine; Visit Provider Internal Medicine Cardiovascular Disease
DX: I25.10 Atherosclerotic heart disease of native coronary artery without angina pectoris (principal); R07.9 Chest pain, unspecified; E78.5 Hyperlipidemia, unspecified; E66.9 Obesity, unspecified; E11.9 Type 2 diabetes mellitus without complications; I10 Essential (primary) hypertension; F32.9 Major depressive disorder, single episode, unspecified; K21.9 Gastro-esophageal reflux disease without esophagitis; G47.33 Obstructive sleep apnea (adult) (pediatric); M19.90 Unspecified osteoarthritis, unspecified site; Z79.82 Long term (current) use of aspirin; Z68.30 Body mass index [BMI] 30.0-30.9, adult
CPT/HCPCS: 80048; 80061; 82962; 85027; 85347; 92928; 93005; 93458; 99152; 99153; J7030; J7040; Q9967; C1725; C1769; C1874; C1887; C1894; C9600; J2405

== ENCOUNTER → 2018-01-10 13:21 | Outpatient (CLI) | payer MEDICAID, SELFPAY ==
[2018-01-07 14:40] VITALS: BMI 41.5
[2018-01-10 14:34] LABS: Anion Gap 6 (5-15); BUN 19 mg/dL (7-18); BUN/Creat Ratio 16.8 RATIO (10-20); Calcium,Total 8.6 mg/dL (8.5-10.1); Chloride 103 mmol/L (98-107); Creatinine, Serum 1.13 mg/dL (0.55-1.02); EST Glomerular Filtration Rate 55 mL/min (>60); Est Glom Filt Rate - Afr Amer 66 mL/min (>60); Glucose 223 mg/dL (74-106); Potassium 3.5 mmol/L (3.5-5.1); Sodium Level 139 mmol/L (136-145)
== END ==
PROVIDERS: Family Provider Family Medicine; PCP Family Medicine; Visit Provider Internal Medicine Cardiovascular Disease
DX: I10 Essential (primary) hypertension (principal); E78.5 Hyperlipidemia, unspecified; E11.9 Type 2 diabetes mellitus without complications; R07.9 Chest pain, unspecified; R06.00 Dyspnea, unspecified; R00.2 Palpitations; E66.9 Obesity, unspecified
CPT/HCPCS: 36415; 80048

== ENCOUNTER → 2018-03-12 08:27 | Outpatient (CLI) | payer MEDICAID, SELFPAY ==
[2018-01-07 14:40] VITALS: BMI 41.5
--- NOTE | 2018-03-12 08:30 | BI_ITS ---
MAMMOGRAPHY - BILATERAL SCREENING 3-D [place] SYNTHESIS REASON FOR EXAM: Female, 48 years old. Bilateral Screening 3-D tomosynthesis PERTINENT HISTORY: Asymptomatic. No significant family history. TECHNIQUE: 2-D mammograms and 3-D [place] synthesis of the breast (s) were performed. CAD was performed. COMPARISON: 03/08/2017, 02/27/2016. FINDINGS: The breast composition is almost entirely fat. Scattered benign calcifications are seen. No dense spiculated dominant masses or suspicious microcalcification cluster are identified. No new architectural distortion, asymmetric density, adenopathy, skin thickening or nipple retraction identified. There has been no significant change since the most recent prior study. BI/SCREENING MAMM (CAD), BILAT IMPRESSION: No mammographic sign of malignancy. Routine yearly mammograms recommended. ASSESSMENT CATEGORY: BIRADS Category 2: Benign. A letter regarding these results will be sent to the patient by the facility within 30 days. FOLLOW UP RECOMMENDATION: Yearly follow up mammogram recommended. (A) Negative mammographic results should not deter biopsy as a palpable lesion should be followed based on clinical grounds and biopsy performed if clinically persistent for 3 months or increasing size. Approximately 10% of breast cancers are not detected by mammography. A normal mammogram should not delay biopsy of a clinically suspicious abnormality. Dense breast tissue may obscure neoplasm. Electronically Signed: Clint Pena, at 17:16 EDT Tel , Service support ,
== END ==
PROVIDERS: Family Provider Family Medicine; PCP Family Medicine; Referring Provider Family Medicine; Visit Provider Family Medicine
DX: Z12.31 Encounter for screening mammogram for malignant neoplasm of breast (principal)
CPT/HCPCS: 77063; 77067

== ENCOUNTER 2018-03-21 13:28 | Emergency (ER) | payer MEDICAID, SELFPAY ==
[2018-01-07 14:40] VITALS: BMI 41.5
[2018-03-21 13:29] VITALS: BP 134/96; PULSE 83; RESP 16; TEMP 36.4; O2SAT 98; BMI 47.8
--- NOTE | 2018-03-21 13:39 | EKG12_ITS ---
Test Reason : CP Blood Pressure : / mmHG Vent. Rate : 079 BPM Atrial Rate : 079 BPM P-R Int : 176 ms QRS Dur : 092 ms QT Int : 384 ms P-R-T Axes : 022 002 -08 degrees QTc Int : 440 ms Normal sinus rhythm Normal ECG Confirmed by ABEL LAZARO, TOM ([id number]), editor city [place] ([id number]) on 03/24/2018 11:10:50 AM Referred By: RASTA/GIANNI Confirmed By:TOM ROMAN MD
--- NOTE | 2018-03-21 13:43 | ED.VISSUMM ---
- ER Visit Summary Date of Service: 03/21/18 Chief Complaint: Chest pain, right knee pain History of Present Illness: The patient is a 48 F who presents with the above symptoms. She states that 3 days ago she tripped and had a mechanical fall. She landed on her chest and right knee. Since then she has had pain in these areas. The pain is in the sternal area. Is worse with movement. She also claims of right knee pain. It is worse with movement as well. She has tried her home medications including aspirin, Plavix and naproxen without any relief. She does have a history of coronary artery disease and one stent in the proximal RCA. Physical Examination: Vital signs reviewed. HEENT exam unremarkable. Heart is regular rate and rhythm without murmurs. Lungs are clear to auscultation. She does have sternal tenderness to palpation. Abdomen is soft and nontender. Extremities reveal no edema. Right knee exam reveals diffuse tenderness with some ecchymosis overlying the patella. There are 2 abrasions which do not appear to be infected. Range of motion is painful. Peripheral pulses are equal. Skin exam normal. Neurologic exam normal. Test Results: EKG is normal sinus rhythm with a rate of 79. Nonspecific ST and T wave changes noted. Chest x-ray reveals no acute findings. Right knee x-ray reveals no acute findings except for some soft tissue swelling. Troponin normal. Emergency Department Course and Treatment: Patient has contusions to her chest wall in the right knee. She will use ice and NSAIDs for these. She will use topical antibiotic cream for the abrasion of the right knee. She will need to follow-up with her PCP if her symptoms persist. Treatment Plan: [] Disposition: Discharge Impression: Chest contusion, right knee contusion, right knee abrasion This note was generated with [employer] dictation software. It may contain incorrect words, spelling, and punctuation that were not noted in review of the chart prior to signing ED Disposition - Plan for ED Patient: Chief Complaint: Chest Pain Referrals: Meme Santiago DO [Primary Care Provider] -
--- NOTE | 2018-03-21 13:55 | RAD_ITS ---
STUDY: X-RAY CHEST REASON FOR EXAM: Female, 48 years old. Chest pain. History of fall. TECHNIQUE: PA and lateral views of the chest. COMPARISON: Comparison is made with prior study dated October 11, 2017. FINDINGS: EKG electrodes are seen. The lungs are clear and expanded. There is no demonstrated pleural abnormality. Normal size heart. Normal mediastinum and rusty. Normal visualized pulmonary arteries. Normal visualized aortic arch and descending thoracic aorta. There are degenerative changes of the visualized thoracic spine. Normal visualized ribs, clavicles, and shoulders. There is no demonstrated abnormality of the visualized soft tissue structures of the upper abdomen. RAD/Chest PA and Lateral IMPRESSION: Normal x-ray examination of the chest. Electronically Signed: Real Arnett MD at 14:39 EDT Tel [phone], Service support ,
[2018-03-21] MEDS: Acetaminophen 500 MG Tablet 1000 MG PO (14:09)
[2018-03-21 14:10] VITALS: BP 126/94; PULSE 77; RESP 16; O2SAT 96
--- NOTE | 2018-03-21 14:39 | RAD_ITS ---
STUDY: X-RAY - RIGHT KNEE REASON FOR EXAM: Female, 48 years old. Knee pain and abrasions following a fall. TECHNIQUE: 4 view(s) of the knee. COMPARISON: None. FINDINGS: Normal visualized distal femur. Normal visualized proximal tibia and fibula. Normal proximal tibiofibular articulation. Normal medial femorotibial compartment. Normal lateral femorotibial compartment. Normal patellofemoral articulation. Infrapatellar soft tissue swelling. RAD/Knee 4 or More Views IMPRESSION: Infrapatellar soft tissue swelling. Electronically Signed: Real Arnett MD at 14:58 EDT Tel [phone], Service support ,
--- NOTE | 2018-03-21 15:07 | ED.DEP ---
ED Disposition - Plan for ED Patient: Disposition: Home or Assisted Living Chief Complaint: Chest Pain Instructions: ED Contusion Chest Wall Referrals: Meme Santiago DO [Primary Care Provider] -
--- NOTE | 2018-03-21 15:14 | ED.RN ---
hx of fall.c/o right knee pain. 2 scabbed areas noted to right knee. no redness or drainage.
[2018-03-21 15:45] VITALS: BP 101/90; PULSE 83; RESP 22; O2SAT 94
--- NOTE | 2018-03-21 15:46 | ED.RN ---
THIS NURSE REVIEWED D/C INSTRUCTIONS WITH PT. PT VERBALIZED UNDERSTANDING OF INSTRUCTIONS. IV D/C. IV CATHETER INTACT. PT DENIES FURTHER NEEDS OR QUESTIONS AT THIS TIME. PT AMBULATES FROM ROOM ON OWN WITHOUT ASSISTANCE FROM STAFF
== END 2018-03-21 15:47 | disposition home or self-care (01) ==
PROVIDERS: Emergency Provider Emergency Medicine; Family Provider Family Medicine; PCP Family Medicine
DX: S20.219A Contusion of unspecified front wall of thorax, initial encounter (principal); S80.01XA Contusion of right knee, initial encounter; W01.0XXA Fall on same level from slipping, tripping and stumbling without subsequent striking against object, initial encounter; Y93.9 Activity, unspecified; Y92.89 Other specified places as the place of occurrence of the external cause; Y99.9 Unspecified external cause status; I25.10 Atherosclerotic heart disease of native coronary artery without angina pectoris; Z95.5 Presence of coronary angioplasty implant and graft
CPT/HCPCS: 71046; 73564; 84484; 93005; 99284; A4216

== ENCOUNTER → 2018-03-24 07:21 | Outpatient (CLI) | payer MEDICAID, SELFPAY ==
[2018-01-07 14:40] VITALS: BMI 41.5
--- NOTE | 2018-03-24 08:04 | PCM.CR.HP2 ---
CR - History & Physical - General Arrival date:: 03/24/18 Arrival time:: 08:05 Date of Referral:: 03/24/18 Date of CR Evaluation:: 03/24/18 Referring Physician: Dr. More Montelongo Primary Diagnosis: PCI with stent - History of Present Cardiac Event Onset Date: Enter Onset Date of cardiac illnesses in Comment field below Current stable Angina Pectoris:: No Acute Myocardial Infarction within 12 months:: No Coronary Artery Bypass Graft:: No Heart valve replacement or repair:: No PTCA or coronary stenting:: Yes - 01/07/18 Heart or Heart-Lung Transplant:: No Heart Failure EF <35%:: No Type of Symptoms:: chest and arm pain Interventions with present event:: PCI Were there any complications?: no - Medications Home Medications: Ambulatory Orders Medication Instructions Recorded Aspirin [Aspirin, Baby] 81 mg PO DAILY@0800 01/26/15 Atorvastatin Calcium [Lipitor] 20 mg PO QHS 01/26/15 Metformin(XR) [Glucophage Xr] 1,000 mg PO BID 01/26/15 loratadine 10 mg capsule 10 mg PO QDAY 06/21/17 famotidine 20 mg tablet 20 mg PO QDAY 06/22/17 gabapentin 600 mg tablet 800 mg PO TID tab 06/22/17 glipizide 5 mg tablet 5 mg PO QDAY 06/22/17 montelukast 10 mg tablet 10 mg PO QPM 06/22/17 multivitamin tablet 1 tab PO QDAY 06/22/17 nabumetone 750 mg tablet 750 mg PO QDAY tab 06/22/17 naproxen sodium 220 mg tablet 220 mg PO Q12H PRN 06/22/17 potassium chloride ER 10 mEq 10 meq PO TID tab 06/22/17 tablet,extended release(part/cryst) tramadol 50 mg tablet 100 mg PO PRN PRN tab 06/22/17 trazodone 150 mg tablet 200 mg PO QHS tab 06/22/17 venlafaxine ER 225 mg 225 mg PO QAM 06/22/17 tablet,extended release 24 hr Sennosides/Docusate Sodium [Senna 2 ea PO QHS 07/26/17 Plus Tablet] Cyclobenzaprine [Flexeril] 10 mg PO TID PRN #20 tab 12/23/17 Quetiapine Fumarate [Seroquel] 25 mg PO QHS 12/23/17 alogliptin 25 mg tablet 25 mg PO QDAY 12/30/17 atenolol 100 mg tablet 100 mg PO QDAY 12/30/17 clopidogrel 75 mg tablet 75 mg PO QDAY #30 tab 12/30/17 Linagliptin [Tradjenta] 5 mg PO DAILY tablet 01/08/18 isosorbide mononitrate ER 30 mg 30 mg PO BID #60 tab 01/18/18 tablet,extended release 24 hr hydrochlorothiazide 25 mg tablet 25 mg PO QDAY #30 tab 01/20/18 Ondansetron [Zofran Odt] 4 mg PO Q8H PRN PRN 03/21/18 Rizatriptan Benzoate [[employer]] 10 mg PO .X1 PRN 03/21/18 Lorazepam [Ativan] 1 mg PO DAILY PRN PRN 03/24/18 - Allergies Allergies/Adverse Reactions: Allergies bacitracin [From Neosporin ([id number])] Allergy (Verified 03/21/18 13:40) rash estrogens, conjugated [From Premarin] Allergy (Verified 03/21/18 13:40) Rash hydrocodone bitartrate [From Vicodin] Allergy (Verified 03/21/18 13:40) Rash latex Allergy (Verified 03/21/18 13:40) Rash neomycin [From Neosporin ([id number])] Allergy (Verified 03/21/18 13:40) rash polymyxin B [From Neosporin ([id number])] Allergy (Verified 03/21/18 13:40) rash pseudoephedrine HCl [From Sudafed] Allergy (Verified 03/21/18 13:40) Shortness of breath azithromycin Adverse Reaction (Verified 03/21/18 13:40) GI Intolerance tolnaftate [From Absorbine Jr.] Adverse Reaction (Verified 03/21/18 13:40) Unknown - Sleep Disorder Evaluation Hx of Sleep Apnea: Yes Do you snore loudly (louder than talking or can be heard through closed doors)?: Yes Do you often feel tired/ fatigued/ sleepy during daytime?: Yes Has anyone observed you stop breathing during sleep?: Yes History of Hypertension (for STOP score): Yes - on cpap at home for sleep apnea STOP Results: Positive Advanced Directives - Advanced Directives Power of Lehr Cutter: Yes Living Will: Yes Advance Directives Information Provided: Yes Advance Directives on File: Yes DNR Order?:: No - MOLST See MOLST form: No Past Medical History - Past Medical Illness Medical History: Past Medical History (Last Updated 01/10/18 @ 09:48 by Valerie Galvez) Arteriosclerotic heart disease (ASHD) (Chronic) I25.10 Stent to RCA 01/07/2018 Obesity (BMI 30-39.9) (Chronic) E66.9 DM type 2 (diabetes mellitus, type 2) (Chronic) E11.9 Dyslipidemia (Chronic) E78.5 HTN (hypertension) (Chronic) I10 Atherosclerosis of coronary artery of [place] heart without angina pectoris I25.10 Cath 2013 Non-Obs CAD FFR to RCA not significant Depression F32.9 Eczema L30.9 Fatty liver K76.0 GERD (gastroesophageal reflux disease) K21.9 Glaucoma H40.9 Obstructive sleep apnea G47.33 Osteoarthritis M19.90 - Past Surgical History Surgical History: Past Surgical History (Last Updated 01/20/18 @ 10:45 by [place] Mckenzie) Stented coronary artery (Chronic) Onset Date: 01/07/18 Z95.5 JENNA to proximal RCA using 4.0 X 24 mm Promus Synergy per Dr. Montelongo @ [facility] H/O tooth extraction K08.409 H/O total hysterectomy Z98.890, Z90.710 History of appendectomy Z98.890, Z90.49 History of left heart catheterization Onset Date: ~08/2012 Z98.890 FFR to RCA not significant 0.85 left carpal tunnel release bilateral Surgical History: appendectomy, hysterectomy - Family History Summary Family History: Family History (Last Updated 01/20/18 @ 10:46 by [place] Mckenzie) Mother Heart disease Hypertension Hyperlipidemia Diabetes Father Heart disease Hypertension Hyperlipidemia Social History - Smoking History Smoking Status: Never smoker Hx Tobacco Use: No Hx Smoking Exposure: No - Alcohol Use Alcohol Usage: No - Substance Abuse Hx Substance Use: No - Occupation Occupation (List type of work in comments):: Unemployed - Hobbies, Recreation, Social Activities Hobbies: Other - color, crochette, games Social Environment - Status Marital Status: - Current Living Arrangements Living Environment:: Spouse - Children How many children do you have?: 0 Do any of your children live nearby?: No - Safety Do you feel safe in your surroundings?: Yes - Assistance Do you need any assistance at home?: some times assistance with shower and getting off commode. Review of Systems - Review of Systems Hints: Right click = Denies ([place]). Left click = Reports ([place]) Review of Present Symptoms: Reports: Shortness of Breath at Rest - has some pulled muscles in chest, so it affects breathing some, fell last week by stumbling., Shortness of Breath with Exertion, PVD - and peripheral neuropathy, Dizziness/Lightheadedness - sometimes upon arising, Fatigue, Appetite - Special Diet, Sleep - Normal - doesn't sleep well, MD aware.. Denies: Operative Discomfort, Angina, Wound Healing, Heart Arrhythmia/Irregularities, Appetite - Normal, Sexual Changes - Pain Is Patient Pain Free?: No Pain Location: chest - Fell last week and injured sternal area. Pain Level: 5/10 Previous experience dealing with pain?: Tylenol or Naproxen prn for chest pain after fell Risk Factor Assessment - Chief Complaint Chief Complaint: PCI - Pulse Pulse Rate: 100 Pulse Rhythm: Regular - Hypertension How long have you been treated?: 30 years Blood Pressure Sitting - Right Arm: 148/100 Blood Pressure Sitting - Left Arm: 138/100 - Stress Stress: Recent, Long-standing, Work-related, Home/Family - Diabetes Diabetic History: Type II, Medication Dependent Nutrition Referral for Diabetes: Yes - Obesity Height: 1.6 m Weight:: 114.759 kg Weight in Pounds: 253.0 lbs Weight Source: Stated by Patient Body Mass Index (BMI): 44.8 Desired Body Weight: 135 Realistic Weight Goal (Loss of 1-2 lbs/week): 228 - Physical Inactivity Physical Inactivity: None Exercise Limitations: Has arthritis and peripheral neuropathy - Risk Stratification Risk Guidelines: Lowest Risk: Risk Factor for Smoking, Highest Risk: Risk Factor for Dyslipidemia, Risk Factor for Diabetes, Risk Factor for Obesity, Risk Factor for Hypertension, Risk Factor for Sedentary Lifestyle, Risk Factor for Depression - Sees a counsellor, psychologist and is on meds. - For Smoking Smoking Risk Guidelines: Smoking Low Risk: None or quit greater than 6 months ago. Smoking Moderate Risk: Smoker or quit 6 months or less ago. Smoking High Risk: Smoker - For Dyslipidemia Dyslipidemia Risk Guidelines: Low Risk: Moderate Risk: High Risk: 15-25% fat 25.1-29% fat >/= 30% fat. <7% sat fat 7-9% sat fat >9% sat fat. <150 mg chol 150-299 mg chol >/= 300 mg chol. LDL <100 LDL 100-129 LDL >/= 130. Chol/HDL ratio <5.0 Chol/HDL ratio 5.0-6.0 Chol/HDL ratio >6.0. Triglycerides <100 Triglycerides 100-149 Triglycerides >/= 150 - For Diabetes Mellitus Diabetes Risk Guidelines: Diabetes Low Risk: HgA1c <6.5% and/or FBG <120. Diabetes Moderate Risk: HgA1c 6.6-7.9% and/or FBG 120-180. Diabetes High Risk: HgA1c >/= 8% and/or FBG >180 - For Obesity/Overweight Obesity/Overweight Risk Guidelines: Obesity Low Risk: BMI <25.0. Obesity Moderate Risk: BMI 25-29.9. Obesity High Risk: BMI >/= 30.0 - For Hypertension Hypertension Risk Guidelines: Hypertension Low Risk: Systolic <120 and Diastolic <80. Hypertension Moderate Risk: Systolic 120-139 and Diastolic 80-89. Hypertension High Risk: Systolic >/= 140 and Diastolic >/= 90 - For Sedentary Lifestyle Sedentary Lifestyle Risk Guidelines: Sedentary Lifestyle Low Risk: >/= 1,500 kcal/week. Sedentary Lifestyle Moderate Risk: 700-1,499 kcal/week. Sedentary Lifestyle High Risk: < 700 kcal/week - For Depression Depression Risk Guidelines: Depression Low Risk: Not clinically depressed. Depression Moderate Risk: Mildly depressed. Depression High Risk: Clinically depressed - Family History Family History: Family History (Last Updated 01/20/18 @ 10:46 by [place] Mckenzie) Mother Heart disease Hypertension Hyperlipidemia Diabetes Father Heart disease Hypertension Hyperlipidemia Motivation - Motivation to Participate On a scale of 1 to 10, how prepared are you to commit to attending program?: 5
--- NOTE | 2018-03-24 08:06 | CR.ITP_ITS ---
General Information - General Information Admitting Diagnosis: PCI - Education/Goals Barriers to Learning: Knowledge Deficit Individual Counseling: Initial Assessment: Abnormal Cholesterol Levels, High Blood Pressure, Overweight/Obesity, Diabetes, Hypertension, Sedentary Lifestyle, Stress, Family History of Heart Disease (under 65 years) Cardiac Rehabilitation Goals: 1. Maintain the individual as the primary focus of care. 2. To improve the patient's quality of life. 3. Identification of cardiac risk factors and provide cardiac risk factor management. 4. Enhance the psychosocial status of the patient. 5. Reconditioning enough to allow the patient to resume customary activities. 6. Control symptoms of cardiac disease Scale for measuring improvement of personal goals: Enter appropriate number in Comments. 2 = Unchanged. 3 = Slightly Better. 4 = Moderate Improvement. 5 = Met my Goal Personal Goals: Initial Assessment: Improve management of stress and emotions, I mprove energy level, Get back to work, or to resume activities faster, Improve knowledge of cardiac disease, Improve diet and eating habits (eat healthier), Control risk factors (learn risk factor modification), Other goal: - get back energy and concentrate Nutrition - Initial Assessment - Program Goals Nutrition Program Goals: LDL <70. Total Cholesterol <200. HDL >45. Triglycerides <150. HgbA1C <7%. BMI <25 - Visit Date of Assessment:: 03/24/18 - Stages of Change Stages of Change:: Action - Diabetes Diabetes:: Yes Insulin: No Non-Insulin Dependent?: Yes Do you monitor your blood sugar at home?: Yes - Weight Management Height: 1.6 m Weight:: 114.305 kg Weight Goal (kg):: 61.235 kg Body Fat %:: 44.8 Goal % Body Fat:: 24 - Intervention Referral to dietitian:: Yes Referral to Diabetic Clinic:: Yes Will attend diet classes:: Yes - Education Gave educational materials for:: Signs & symptoms of hypoglycemia, Signs & symptoms of hyperglycemia, Relate diabetes to coronary artery disease, Healthy eating Tobacco - Initial Assessment - Program Goals Tobacco Program Goals: Complete smoking cessation. Attend education classes. Improve Knowledge Test score - Stage of Change Stages of Change:: Action - Learning Barriers Learning Barriers: Vision - glasses, Cognitive, Ready to Learn Total Score:: 13 - Tobacco Use Tobacco Use: Non-smoker Do you use smokeless tobacco?: No - Intervention Smoking Cessation Referral:: No Individual Education/Counseling:: No Education Schedule Given:: Yes - Education Gave educational material for:: Coronary artery disease, Risk factors, Sexuality, Medical compliance, Cardiac A&P, Angina signs & symptoms Psychosocial - Initial Assess - Target Goals Target Goals: Assess presence or absence of depression. Using a valid screening tool, maximizes coping skills. Positive support system - Stages of Change Stages of Change:: Action - Psychosocial Test Tool Used:: HANDS Depression Questionnaire Self-reported stress:: yes Total Mood Screening Score:: 16 - sees counsellor, psychiatris and is on meds Self-Efficacy Score:: 5 - Intervention PS - Interventions: Yes Attend Stress Management Classes, Yes Uses Stress Management Skills, No Referral to Mental Health, No Referral to [facility] Case Management, No Referral to Physician - Education Gave educational materials for:: Coping techniques, Signs & symptoms of depression, Stress management, Relaxation techniques - Patient/Program Goal Preventative Medication(s):: Aspirin, JOSE ELIAS inhibitor, Clopidogrel, Beta katie, Statin/lipid - Assistive Devices Assistive Devices:: None Fall Risk Assessed:: Yes Patient Health Questionnaire Initial Assessment 1. Little interest or pleasure in doing things: Nearly every day 2. Feeling down, depressed, or hopeless: More than half the days 3. Trouble falling or staying asleep, or sleeping too much: Nearly every day 4. Feeling tired or having little energy: Nearly every day 5. Poor appetite or overeating: Nearly every day 6. Feeling bad about yourself -- or that you are a failure or have let yourself or your family down: Not at all 7. Trouble concentrating on things, such as reading the newspaper or watching television: More than half the days 8. Moving or speaking so slowly that other people could have noticed. Or the opposite - being so fidgety or restless that you have been moving around a lot more than usual: Not at all 9. Thoughts that you would be better off , or of hurting yourself in some way: Not at all How difficult have these problems made it for you to do your work, take care of things at home, or get along with other people?: Somewhat difficult Total Score: 16 EDWIN-Q SV Test - Statements CAD is a disease of the arteries in the heart: False Examples of risk factors for heart disease: True Angina is chest pain or discomfort: True The benefits of resistance training include: False Eating more meat and dairy products: True Anti-platelet medications such as aspirin are important: False The only effective way to manage stress: True An exercise warm-up slowly increases heart rate: True Prepared, processed foods usually have high sodium: False Depression is common after a heart attack: I Don't Know The statin medications lower cholesterol: I Don't Know To control blood pressure, lower the amount of sodium: True If someone gets chest discomfort during walking: False Transfats are partially hydrogenated vegetable oils: True Sleep apnea that is not treated increases the risk: False To control cholesterol, one should become a vegetarian: False Someone knows if he/she is exercising at the right level: True Diabetes cannot be prevented with exercise & health eating: False Stress is a large risk for heart attack: True A diet that can help lower blood pressure is rich in: True - Total Score Total Correct Responses: 13 Self-Efficacy Initial Assessment We would like to know how confident you are in doing certain activities. Please select your confidence level for:: Select your confidence level for the following using the scale 1-10 where 1 is not at all confident and 10 is totally confident. Your score is the average of all 6 responses. Fatigue: How confident are you that you can keep the fatigue caused by your disease from interfering with the things you want to do? Select Number: 5 Physical Discomfort or Pain: How confident are you that you can keep the physical discomfort or pain of your disease from interfering with the things you want to do? Select Number: 4 Emotional Distress: How confident are you that you can keep the emotional distress caused by your disease from interfering with the things you want to do? Select Number: 3 Other Symptoms or Health Problems: How confident are you that you can keep other symptoms or health problems from interfering with the things you want to do? Select Number: 7 Different Tasks and Activities: How confident are you that you can do the different tasks and activities needed to manage your health condition so as to r educe your need to see a doctor? Select Number: 8 Medication: How confident are you that you can do things other than just taking medication to reduce how much your illness affects your everyday life? Select Number: 8 Total Score:: 5 Nutrition Survey - Nutrition Survey Instructions Scoring Instructions: Scoring is as follows: Yes = 1 points. No = 0 point. Patient score that is >/=12 is considered to be at potential nutritional risk and could benefit from a referral to a registered dietitian. - Nutrition Survey Initial Have you lost >10 lbs over the past 2 months without trying?: Yes Are you following a special diet at home for diabetes, low fat, or low salt?: Yes Are you interested in meeting with a dietitian for help understanding your diet?: No Do you eat less than 3 meals a day?: No Do you eat fatty meats (torres, sausage, ribs, etc), fried foods, desserts, large amounts of salad dressings, margarine, butter, or cheese most days?: Yes Do you have food allergies? [Enter types in comment field]: No Do you eat in restaurants more than 3 times a week?: No Do you season food with salt, seasoning salt, or garlic salt?: Yes Do you used canned, boxed, frozen meals, or soups, seasoning packets?: No Total Score:: 4
[2018-03-24 09:14] VITALS: BP 138/100; BP 148/100; PULSE 100; BMI 44.8
== END ==
PROVIDERS: Family Provider Family Medicine; PCP Family Medicine; Visit Provider Internal Medicine Cardiovascular Disease
DX: Z95.5 Presence of coronary angioplasty implant and graft (principal)

== ENCOUNTER 2018-04-06 15:15 | Outpatient (RCR) | payer MEDICAID, SELFPAY ==
[2018-01-07 14:40] VITALS: BMI 41.5
== END 2018-04-06 23:59 ==
LOC: CR 15:15
PROVIDERS: Family Provider Family Medicine; PCP Family Medicine; Referring Provider Internal Medicine Cardiovascular Disease; Visit Provider Internal Medicine Cardiovascular Disease
DX: Z95.5 Presence of coronary angioplasty implant and graft (principal); I25.10 Atherosclerotic heart disease of native coronary artery without angina pectoris; I10 Essential (primary) hypertension; E78.5 Hyperlipidemia, unspecified
CPT/HCPCS: 93798

== ENCOUNTER → 2018-04-18 10:56 | Outpatient (CLI) | payer MEDICAID, SELFPAY ==
[2018-01-07 14:40] VITALS: BMI 41.5
--- NOTE | 2018-04-18 10:58 | RAD_ITS ---
STUDY: X-RAY - RIGHT KNEE REASON FOR EXAM: Female, 48 years old. Pain TECHNIQUE: 6 view(s) of the knee. COMPARISON: 03/21/2018 FINDINGS: There is no evidence of fracture or dislocation. There are no significant degenerative changes. There are no radiodense foreign bodies. The previously seen soft tissue swelling has resolved. RAD/Knee 4 or More Views IMPRESSION: Negative radiographs of the right knee. Electronically Signed: Dimas Thomas, at 19:27 EST Tel , Service support ,
== END ==
PROVIDERS: Family Provider Family Medicine; PCP Family Medicine; Referring Provider Physician Assistant; Visit Provider Physician Assistant
DX: M25.561 Pain in right knee (principal)
CPT/HCPCS: 73564; 93798

== ENCOUNTER 2018-04-27 15:55 | Emergency (ER) | payer MEDICAID, SELFPAY ==
[2018-01-07 14:40] VITALS: BMI 41.5
[2018-04-27 15:56] VITALS: BP 131/96; PULSE 93; RESP 13; TEMP 37.3; O2SAT 99; BMI 42.2
--- NOTE | 2018-04-27 16:10 | EKG12_ITS ---
Test Reason : CP Blood Pressure : / mmHG Vent. Rate : 093 BPM Atrial Rate : 093 BPM P-R Int : 176 ms QRS Dur : 088 ms QT Int : 372 ms P-R-T Axes : 028 004 -02 degrees QTc Int : 462 ms Normal sinus rhythm Normal ECG Confirmed by DANELLE LAZARO, VITA ([id number]), editor publications KAIT ELMORE ([id number] on 04/29/2018 1:15:34 PM Referred By: STEVE Confirmed By:VITA MCCLENDON MD
--- NOTE | 2018-04-27 16:12 | ED.VISSUMM ---
- ER Visit Summary Date of Service: 04/27/18 Chief Complaint: Chest pain History of Present Illness: The patient is a 48 F presenting with chest pain. Patient was at cardiac rehab on the bicycle. She states she rode the bicycle for approximately 2 minutes and started having midsternal chest pain radiating to her neck. She had associated nausea, shortness of breath. She states at the worse it was 6 out of 10. Currently at rest it is 2 out of 10. She has a history of hypertension, diabetes, hypercholesterolemia, family history of early heart disease. She is not a smoker. No PE/DVT risk factors. She had a JENNA to the proximal RCA on January 07, [address] Montelongo. Cath showed single vessel CAD of the proximal RCA, nonobstructive coronary arteries, normal LV size, wall motion, and systolic function. Physical Examination: Vitals are stable. Patient is afebrile. Alert no acute distress. HEENT exam is unremarkable. Neck is supple. Lungs are clear and equal bilaterally. Heart is regular rate and rhythm. Abdomen is soft nontender nondistended. Extremities are unremarkable. Skin is warm and dry. No focal neurologic deficit. Remainder of exam is unremarkable. Emergency Department Course and Treatment: EKG is normal sinus rhythm rate of 93 with no acute ischemic changes. Patient was given aspirin on arrival. CBC shows hemoglobin 11.5. Chemistries show potassium 2.9, glucose 237. She is given potassium oral replacement. Troponin is negative. D-dimer negative. Chest x-ray shows no acute process. Patient is resting comfortably on reevaluation. She is chest pain-free. She is requesting discharge. Discussed with Dr. Sterling. He advised to follow up outpatient with cardiac rehab. Patient is advised to return to ED if worsening symptoms. Disposition: Discharge home Impression: Chest pain This note was generated with [employer] dictation software. It may contain incorrect words, spelling, and punctuation that were not noted in review of the chart prior to signing ED Disposition - Plan for ED Patient: Chief Complaint: Chest Pain Referrals: Meme Santiago DO [Primary Care Provider] -
--- NOTE | 2018-04-27 17:00 | RAD_ITS ---
STUDY: X-RAY CHEST REASON FOR EXAM: Female, 48 years old. Chest pain, shortness of breath TECHNIQUE: A single frontal view of the chest was obtained. COMPARISON: March 21, 2018 FINDINGS: The lungs are underaerated. There are minimal increased markings in both lung bases. There is no demonstrated pleural abnormality. The cardiac silhouette is normal in size allowing for low volume inspiration. The mediastinum and hilar regions are unremarkable. Normal visualized pulmonary arteries. Normal visualized aortic arch and descending thoracic aorta. There are diffuse degenerative changes of the visualized spine. The visualized ribs, clavicles, and shoulders are unremarkable. There is no demonstrated abnormality of the visualized upper abdomen. RAD/Chest 1 View (Portable) IMPRESSION: No acute cardiopulmonary abnormalities. There is minimal bibasilar atelectasis. Electronically Signed: Andreia Cowan MD at 17:48 EST Tel Direct: [phone], Service support ,
[2018-04-27 17:05] VITALS: BP 108/78; PULSE 92; RESP 12; O2SAT 96
[2018-04-27] MEDS: Aspirin 81 MG TAB.CHEW 324 MG PO (17:06)
[2018-04-27 17:10] LABS: Absolute Lymphocyte Count 1.66 X10^3/ul (0.83-4.51); Absolute Neutrophil Count 3.3 X10^3/uL (2.0-7.7); Basophil# 0.02 X10^3/uL; Basophil% 0.4 % (0-1); Eosinophil# 0.23 X10^3/uL; Eosinophils% 4.1 % (0-5); Hemoglobin 11.5 g/dl (12.0-15.0); Lymphocyte # 1.66 X10^3/ul (4.0); Lymphocyte % 29.5 % (19-41); Mean Corp Hgb Conc 32.9 g/gl (32-36); Mean Corpuscular Hgb 26.8 pg (27.0-32.0); Mean Corpuscular Volume 81.6 fL (81-99); Mean Platelet Vol. 9.5 fl (6.2-12.0); Monocyte# 0.41 X10^3/uL; Monocyte% 7.3 % (0-10); Neutrophil # 3.28 X10^3/uL (2.7-7.7); Neutrophil % 58.3 % (47-70); Platelet Count 194 K/mm3 (150-450); RBC Distribution Width CV 13.8 % (11.6-14.6); RBC Distribution Width SD 40.7 fl (35.1-43.9); Red Blood Count 4.29 M/mm3 (4.2-5.4); White Blood Count 5.6 K/mm3 (4.4-11.0)
[2018-04-27 17:11] LABS: POSITIVE COUNT NO; POSITIVE DIFFERENTIAL NO; POSITIVE MORPHOLOGY NO
[2018-04-27 17:25] LABS: Anion Gap 8 (5-15); BUN 10 mg/dL (7-18); BUN/Creat Ratio 9.8 RATIO (10-20); Calcium,Total 8.1 mg/dL (8.5-10.1); Chloride 104 mmol/L (98-107); Creatinine, Serum 1.02 mg/dL (0.55-1.02); EST Glomerular Filtration Rate 62 mL/min (>60); Est Glom Filt Rate - Afr Amer 75 mL/min (>60); Estimated Creatinine Clearance 58.88 ml/min; Glucose 237 mg/dL (74-106); Potassium 2.9 mmol/L (3.5-5.1); Sodium Level 141 mmol/L (136-145)
[2018-04-27 18:20] VITALS: BP 122/95; PULSE 87; RESP 15; O2SAT 96
[2018-04-27 18:30] LABS: D-Dimer Quantitative (DVT/PE) 0.47 FEU/ug/m (0.27-0.49)
--- NOTE | 2018-04-27 18:50 | ED.DEP ---
ED Disposition - Plan for ED Patient: Chief Complaint: Chest Pain Instructions: ED Chest Pain Atypical Unkn Cause Referrals: Meme Santiago DO [Primary Care Provider] - Darnell Montelongo MD [STAFF PHYSICIAN] -
[2018-04-27 19:01] VITALS: BP 125/88; PULSE 95; RESP 14; O2SAT 97; O2SAT 99
--- NOTE | 2018-04-27 19:08 | ED.RN ---
PT WAS GIVEN 40 MEQ OF K-DUR. AUG WILL NO ALLOW MEDICATION TO BE COMPLETED. IS WAS CALLED, BUT IS OUT OF DEPARTMENT AND WON'T BE BACK UNTIL AFTER THE HOLIDAYS. LOGGER NOTIFIED. Artem LOCKE RN [id number]
== END 2018-04-27 19:11 | disposition home or self-care (01) ==
LOC: ED 16:23
PROVIDERS: Emergency Provider Emergency Medicine; Family Provider Family Medicine; PCP Family Medicine
DX: R07.9 Chest pain, unspecified (principal); R11.0 Nausea; R06.00 Dyspnea, unspecified; I25.10 Atherosclerotic heart disease of native coronary artery without angina pectoris; I10 Essential (primary) hypertension; E11.9 Type 2 diabetes mellitus without complications; E78.00 Pure hypercholesterolemia, unspecified; Z82.49 Family history of ischemic heart disease and other diseases of the circulatory system; K21.9 Gastro-esophageal reflux disease without esophagitis; Z95.5 Presence of coronary angioplasty implant and graft
CPT/HCPCS: 71045; 80048; 84484; 85025; 85379; 93005; 93798; 99285; A4216

== ENCOUNTER 2018-05-04 08:34 | Outpatient (RCR) | payer MEDICAID, SELFPAY ==
[2018-01-07 14:40] VITALS: BMI 41.5
== END 2018-05-06 23:59 ==
LOC: DC 08:34
PROVIDERS: Family Provider Family Medicine; PCP Family Medicine; Visit Provider Internal Medicine Cardiovascular Disease
DX: E11.9 Type 2 diabetes mellitus without complications (principal); E66.9 Obesity, unspecified; Z71.3 Dietary counseling and surveillance
CPT/HCPCS: G0108

== ENCOUNTER 2018-05-06 15:15 | Outpatient (RCR) | payer MEDICAID, SELFPAY ==
[2018-01-07 14:40] VITALS: BMI 41.5
--- NOTE | 2018-04-26 10:05 | PCM.CR.ITP ---
Exercise - 30-day Assessment - Visit Date of Eval: 04/26/18 Session #:: 10 - Stages of Change Stages of Change:: Action - Exercise Prescription Mode:: Treadmill, Airdyne, NuStep, Arm Ergometer Frequency (x/week): 3 Duration:: 35 METs - Progression: 0.5-1 MET as tolerated: 3.5 Target Heart Rate:: 121-129 with max HR 127 - Hypertension Resting Blood Pressure:: 120/90 Peak Exercise Blood Pressure:: 122/80 Medication Changes:: Yes - Intervention Home Exercise/Activity Goal:: Moderate Exercise 30 min/day x 5 days/wk - Education Goals:: Warm-up, RPE ZOYA Scale, S/S, Safe Exercise, Self-Monitoring - Exercise Program Goals Exercise Program Goals: Aerobic Activity >30 min Nutrition - Initial Assessment - Program Goals Nutrition Program Goals: LDL <70. Total Cholesterol <200. HDL >45. Triglycerides <150. HgbA1C <7%. BMI <25 - Diabetes Do you monitor your blood sugar at home?: Yes Nutrition - 30-Day Assessment - Program Goals Nutrition Program Goals: LDL <70. Total Cholesterol <200. HDL >45. Triglycerides <150. HgbA1C <7%. BMI <25 - Visit Date of Eval: 04/26/18 - Stages of Change Stages of Change:: Action - Lipids Has the patient seen the dietitian?: No - Diabetes Diabetes:: No - Weight Management Weight:: 238 lb 8 oz - Intervention Will attend diet classes:: Yes - Education Attended class for:: Healthy eating Tobacco - Initial Assessment - Program Goals Tobacco Program Goals: Complete smoking cessation. Attend education classes. Improve Knowledge Test score - Learning Barriers Learning Barriers: Vision - glasses, Cognitive, Ready to Learn Tobacco - 30-Day Assessment - Program Goals Tobacco Program Goals: Complete smoking cessation. Attend education classes. Improve Knowledge Test score - Stage of Change Stages of Change:: Action - Learning Barriers Learning Barriers: Participates in education - Family Support Do you have family support?: Yes - Tobacco Use Tobacco Use: Non-smoker Do you use smokeless tobacco?: No - Intervention Education Schedule Given:: Yes - Education Attended class for:: Coronary artery disease, Risk factors, Sexuality, Medical compliance, Cardiac A&P, Angina signs & symptoms Psychosocial - Initial Assess - Target Goals Target Goals: Assess presence or absence of depression. Using a valid screening tool, maximizes coping skills. Positive support system - Psychosocial Test Tool Used:: HANDS Depression Questionnaire - Assistive Devices Fall Risk Assessed:: Yes Psychosocial - 30-Day Assess - Target Goals Target Goals: Assess presence or absence of depression. Using a valid screening tool, maximizes coping skills. Positive support system - Stages of Change Stages of Change:: Action - Psychosocial Test Tool Used:: HANDS Depression Questionnaire - Intervention PS - Interventions: Yes Attend Stress Management Classes, Yes Uses Stress Management Skills, No Referral to Mental Health, No Referral to [facility] Case Management, No Referral to Physician - Education Attended classes for:: Coping techniques, Signs & symptoms of depression, Stress management, Relaxation techniques - Patient/Program Goal Preventative Medication(s):: Aspirin, Clopidogrel, Beta katie, Statin/lipid - Assistive Devices Assistive Devices:: None Fall Risk Assessed:: Yes Patient Health Questionnaire 30-Day Re-eval Assessment 1. Little interest or pleasure in doing things: Several days 2. Feeling down, depressed, or hopeless: Several days 3. Trouble falling or staying asleep, or sleeping too much: Several days 4. Feeling tired or having little energy: Several days 5. Poor appetite or overeating: Not at all 6. Feeling bad about yourself -- or that you are a failure or have let yourself or your family down: Not at all 7. Trouble concentrating on things, such as reading the newspaper or watching television: Not at all 8. Moving or speaking so slowly that other people could have noticed. Or the opposite - being so fidgety or restless that you have been moving around a lot more than usual: Not at all 9. Thoughts that you would be better off , or of hurting yourself in some way: Not at all How difficult have these problems made it for you to do your work, take care of things at home, or get along with other people?: Somewhat difficult Total Score: 4 Self-Efficacy 30-Day Re-eval Assessment We would like to know how confident you are in doing certain activities. Please select your confidence level for:: Select your confidence level for the following using the scale 1-10 where 1 is not at all confident and 10 is totally confident. Your score is the average of all 6 responses. Fatigue: How confident are you that you can keep the fatigue caused by your disease from interfering with the things you want to do? Select Number: 7 Physical Discomfort or Pain: How confident are you that you can keep the physical discomfort or pain of your disease from interfering with the things you want to do? Select Number: 8 Emotional Distress: How confident are you that you can keep the emotional distress caused by your disease from interfering with the things you want to do? Select Number: 9 Other Symptoms or Health Problems: How confident are you that you can keep other symptoms or health problems from interfering with the things you want to do? Select Number: 8 Different Tasks and Activities: How confident are you that you can do the different tasks and activities needed to manage your health condition so as to reduce your need to see a doctor? Select Number: 8 Medication: How confident are you that you can do things other than just taking medication to reduce how much your illness affects your everyday life? Select Number: 8 Total Score:: 8
[2018-04-26 10:08] VITALS: BP 120/90; BP 122/80
== END 2018-05-06 23:59 ==
LOC: CR 15:15
PROVIDERS: Family Provider Family Medicine; PCP Family Medicine; Referring Provider Internal Medicine Cardiovascular Disease; Visit Provider Internal Medicine Cardiovascular Disease
DX: I25.10 Atherosclerotic heart disease of native coronary artery without angina pectoris (principal); I10 Essential (primary) hypertension; E78.5 Hyperlipidemia, unspecified; Z95.5 Presence of coronary angioplasty implant and graft; E11.9 Type 2 diabetes mellitus without complications; E66.9 Obesity, unspecified; Z71.3 Dietary counseling and surveillance
CPT/HCPCS: 93798; G0108

== ENCOUNTER → 2018-05-11 08:27 | Outpatient (CLI) | payer MEDICAID, SELFPAY ==
[2018-01-07 14:40] VITALS: BMI 41.5
[2018-05-09 09:58] VITALS: BMI 40.7
--- NOTE | 2018-05-11 08:29 | US_ITS ---
STUDY: ABDOMINAL ULTRASOUND - RIGHT UPPER QUADRANT REASON FOR VISIT: Female, 48 years old. Diarrhea, nausea, vomiting, right upper quadrant pain for 2 weeks. TECHNIQUE: Ultrasound evaluation of the right upper quadrant was performed with real-time and static youngblood-scale imaging. TECHNICAL QUALITY: Adequate. COMPARISON: May 12, 2016. FINDINGS: Liver: The liver measures 17 cm. There is increased echogenicity consistent with fatty infiltration. The bile ducts are within normal limits. There is hepatic color flow. The direction of portal flow is hepatopetal. There is no demonstrated mass lesion. Gallbladder: Normal distended gallbladder. The gallbladder wall measures 3 mm. There is a negative sonographic Soliman's sign. There is no pericholecystic fluid. There are no gallstones. Common Bile Duct (C.B.D.): The common bile duct measures 3 mm. Pancreas: Normal size of the head, body and tail of the pancreas. There is normal echogenicity of the pancreas. There is no demonstrated pancreatic mass or cyst. Right Kidney: Normal size of the right kidney. The right kidney measures 11.1 cm. Normal renal cortex. The right cortex measures 1.4 cm. There is no demonstrated renal mass or cyst. There is no right hydronephrosis. Two cortical 4 mm calcification suggestive of nonobstructing renal calculi. US/Abdomen Limited IMPRESSION: Fatty liver noted previously. Normal gallbladder. Small nonobstructing right renal calculi. Electronically Signed: Qamar Lerma MD at 6:16 EST , Service support ,
== END ==
PROVIDERS: Family Provider Family Medicine; PCP Family Medicine; Referring Provider Family Medicine; Visit Provider Family Medicine
DX: R10.11 Right upper quadrant pain (principal)
CPT/HCPCS: 76705

== ENCOUNTER → 2018-05-19 12:29 | Outpatient (CLI) | payer MEDICAID, SELFPAY ==
[2018-01-07 14:40] VITALS: BMI 41.5
[2018-05-09 09:58] VITALS: BMI 40.7
--- NOTE | 2018-05-19 12:30 | STE_ITS ---
Reason For Study: Chest Pain Stress Results Protocol: Modified Chandu Protocol Maximum Predicted HR: 173 bpm Target HR: 147 bpm % Maximum Predicted HR: 91 % DurationHeart Rate Stage (mm:ss) (bpm) BP Comment Baseline 89 132/903/10 Chest Pain Modified Chandu Protocol Stage 0 3:00 120 148/983/10 Chest Pain; Mild Dyspnea Modified Chandu Protocol Stage 1/2 3:00 127 154/903/10 Chest Pain; Mild To Moderate Dyspnea Modified Chandu Protocol Stage 1 3:00 142 160/945/10 Chest Pain; Moderate Dyspnea Modified Chandu Protocol Stage 2 1:31 157 / 5/10 Chest Pain; Moderate Dyspnea Recovery 100 146/923/10 Chest Pain Stress Duration: 10:31 mm:ss Maximum Stress HR: 157 bpm METS: 7 Baseline Echocardiogram Findings The estimated ejection fraction is 65 %. Stress Echo Wall motion Data Resting WM Intermediate WM Stress WM Resting Wall Motion Wall Motion Stress No regional wall motion No regional wall motion abnormalities noted. abnormalities noted. EKG Data Normal intervals are noted. At peak exercise, upsloping ST changes only were noted, which did not meet the criteria for ischemia. No clinical angina was noted. No arrhythmias noted. Interpretation Summary The estimated ejection fraction is 65 %. Normal, adequate, modified Chandu dobutamine echo stress echocardiogram. Negative for ischemia by EKG and echocardiographic criteria. No anginal symptoms noted. No arrhythmias noted. Appropriate blood pressure response to exercise. Average exercise capacity for age. Final LVEF of 75%. No complications. Ordering Physician: Walter Salinas Referring Physician: Darnell Montelongo Performed By: Katherin Joseph, CHRISTOPHER, RVT
== END ==
PROVIDERS: Family Provider Family Medicine; PCP Family Medicine; Referring Provider Nurse Practitioner Family; Visit Provider Nurse Practitioner Family
DX: R07.9 Chest pain, unspecified (principal)
CPT/HCPCS: 93017; 93350

== ENCOUNTER 2018-05-21 12:26 | Emergency (ER) | payer MEDICAID, SELFPAY ==
[2018-01-07 14:40] VITALS: BMI 41.5
[2018-05-09 09:58] VITALS: BMI 40.7
[2018-05-21 12:27] VITALS: BP 141/107; PULSE 84; RESP 16; TEMP 36.6; O2SAT 99; BMI 42.8
--- NOTE | 2018-05-21 12:41 | RAD_ITS ---
STUDY: X-RAY - RIGHT FOOT CLINICAL: Female, 48 years old. Pain TECHNIQUE: 3 view(s) of the foot. COMPARISON: None. FINDINGS: Fifth metatarsal base is within normal limits. Metatarsal bones are within normal limits. The anterior process of the calcaneus is within normal limits. Plantar spurring. IMPRESSION: No evidence for acute fractures. Electronically Signed: Favian Valencia, at 13:41 EST Tel , Service support , RAD/Foot min 3 Views
--- NOTE | 2018-05-21 12:42 | ED.VISSUMM ---
- ER Visit Summary Date of Service: 05/21/18 Chief Complaint: Toe pain History of Present Illness: The patient is a 48 F with right great toe and left middle toe pain after stubbing them. No other injuries or complaints. Physical Examination: Tender to palpation to the involved toes. Test Results: X-rays pending Emergency Department Course and Treatment: X-rays negative. Rest ice elevate. Anti-inflammatories for pain. Treatment Plan: As above Disposition: Discharge Impression: 1. Bilateral toe pain This note was generated with [employer] dictation software. It may contain incorrect words, spelling, and punctuation that were not noted in review of the chart prior to signing ED Disposition - Plan for ED Patient: Chief Complaint: Lower Extremity Injury Referrals: Meme Santiago DO [Primary Care Provider] -
--- NOTE | 2018-05-21 12:46 | RAD_ITS ---
STUDY: X-RAY - LEFT FOOT CLINICAL: Female, 48 years old. Pain. Trauma TECHNIQUE: 3 view(s) of the foot. COMPARISON: None. FINDINGS: There is a plantar calcaneal spur. Normal visualized subtalar, talonavicular, calcaneocuboid, tarsal and tarsometatarsal articulations. Normal metatarsi. There is degenerative arthrosis of the metatarsophalangeal joint of the hallux . Normal tibial and fibular sesamoid bones. Normal interphalangeal joint of the great toe. Normal phalanges of the great toe. Normal second through fifth metatarsophalangeal joints. Normal interphalangeal joints and phalanges of the lesser toes. The soft tissue structures are unremarkable. There is no demonstrated fracture. RAD/Foot min 3 Views IMPRESSION: No fracture. Mild spurring. Electronically Signed: Brett Webber MD at 13:58 EST , Service support ,
--- NOTE | 2018-05-21 14:05 | ED.DEP ---
ED Disposition - Plan for ED Patient: Chief Complaint: Lower Extremity Injury Instructions: ED Contusion Foot Prescriptions: Ibuprofen [Motrin] 800 mg PO TID PRN PRN #20 tab PRN Reason: Pain Referrals: Meme Santiago DO [Primary Care Provider] -
[2018-05-21 14:20] VITALS: BP 117/98; PULSE 85; RESP 18; O2SAT 98
== END 2018-05-21 14:21 | disposition home or self-care (01) ==
LOC: ED 13:15
PROVIDERS: Emergency Provider Emergency Medicine; Family Provider Family Medicine; PCP Family Medicine
DX: M79.675 Pain in left toe(s) (principal); M79.674 Pain in right toe(s); E11.9 Type 2 diabetes mellitus without complications; I10 Essential (primary) hypertension; E78.00 Pure hypercholesterolemia, unspecified
CPT/HCPCS: 73630; 99283

== ENCOUNTER 2018-05-26 10:30 | Outpatient (RCR) | payer MEDICAID, SELFPAY ==
[2018-01-07 14:40] VITALS: BMI 41.5
[2018-05-09 09:58] VITALS: BMI 40.7
== END 2018-06-06 23:59 ==
LOC: DC 10:30
PROVIDERS: Family Provider Family Medicine; PCP Family Medicine; Visit Provider Internal Medicine Cardiovascular Disease
DX: E11.9 Type 2 diabetes mellitus without complications (principal); E66.9 Obesity, unspecified; Z71.3 Dietary counseling and surveillance
CPT/HCPCS: G0108

== ENCOUNTER 2018-06-03 12:24 | Emergency (ER) | payer MEDICAID, SELFPAY ==
[2018-01-07 14:40] VITALS: BMI 41.5
[2018-06-03 12:25] VITALS: BP 177/120; PULSE 82; RESP 15; TEMP 37.1; O2SAT 96; BMI 41.7
[2018-06-03 12:32] VITALS: BP 110/76; PULSE 81; RESP 15; O2SAT 96
--- NOTE | 2018-06-03 12:33 | EKG12_ITS ---
Test Reason : REPEAT Blood Pressure : / mmHG Vent. Rate : 075 BPM Atrial Rate : 075 BPM P-R Int : 186 ms QRS Dur : 090 ms QT Int : 396 ms P-R-T Axes : 032 006 001 degrees QTc Int : 442 ms Normal sinus rhythm Normal ECG Confirmed by ABEL LAZARO, TOM ([id number]), science editor KAIT ELMORE ([id number]) on 06/06/2018 1:27:32 PM Referred By: Darnell Montelongo Confirmed By:TOM ROMAN MD
[2018-06-03 12:47] LABS: Absolute Lymphocyte Count 1.92 X10^3/ul (0.83-4.51); Basophil# 0.04 X10^3/uL; Basophil% 0.4 % (0-1); Eosinophil# 0.17 X10^3/uL; Eosinophils% 1.8 % (0-5); Hematocrit 41.8 % (37-47); Hemoglobin 14.2 g/dl (12.0-15.0); Lymphocyte # 1.92 X10^3/ul (4.0); Lymphocyte % 19.8 % (19-41); Mean Corpuscular Hgb 27.2 pg (27.0-32.0); Mean Corpuscular Volume 79.9 fL (81-99); Mean Platelet Vol. 9.6 fl (6.2-12.0); Monocyte# 0.51 X10^3/uL; Monocyte% 5.3 % (0-10); Neutrophil # 7.02 X10^3/uL (2.7-7.7); Neutrophil % 72.4 % (47-70); POSITIVE COUNT NO; POSITIVE DIFFERENTIAL NO; POSITIVE MORPHOLOGY NO; Platelet Count 291 K/mm3 (150-450); RBC Distribution Width SD 40.5 fl (35.1-43.9); Red Blood Count 5.23 M/mm3 (4.2-5.4); White Blood Count 9.7 K/mm3 (4.4-11.0)
[2018-06-03 13:04] LABS: Anion Gap 11 (5-15); BUN 9 mg/dL (7-18); BUN/Creat Ratio 9.6 RATIO (10-20); Calcium,Total 9.4 mg/dL (8.5-10.1); Chloride 99 mmol/L (98-107); Creatinine, Serum 0.94 mg/dL (0.55-1.02); EST Glomerular Filtration Rate 68 mL/min (>60); Est Glom Filt Rate - Afr Amer 83 mL/min (>60); Estimated Creatinine Clearance 66.58 ml/min; Glucose 203 mg/dL (74-106); Potassium 3.2 mmol/L (3.5-5.1); Sodium Level 140 mmol/L (136-145)
--- NOTE | 2018-06-03 13:10 | ED.VISSUMM ---
- ER Visit Summary Date of Service: 06/03/18 Chief Complaint: Mid chest pressure History of Present Illness: The patient is a 48 F who has multiple medical problems which include coronary disease, hypertension, diabetes, hypercholesterolemia who presents with mid chest pressure described as a paper weight on her chest with associated symptoms and no radiation. This started prior to arrival. She has had similar presentation with negative workup. She had a cardiac stress test May 19 with no exercise-induced ischemia. Stress test lasted approximately 1 minutes and she achieved workload of 7 metastases. Patient is not presently diaphoretic and dyspneic even though she reports she is short of breath and reports rapid heart and heart racing through her body. Monitor reveals a sinus rhythm rate of 80. She denies fever, chills night sweats. She denies ocular, visual auditory symptoms. She does have history of hiatal hernia. She denies hematemesis, melena hematochezia. She reports she is allergic to nitroglycerin. She states she took her medications morning, which included aspirin. Physical Examination: Vital signs noted and normal. Head is atraumatic normocephalic. Pupils are equal round reactive. Extraocular muscles are intact. TMs are pearly white with landmarks noted. Nares patent with no drainage. Posterior pharynx without erythema or exudate. Uvula is midline. There is no dysphonia or dysphasia. Trachea is midline. There is no stridor with auscultation of the neck. Heart is regular without murmur, gallop or rub. S1 and S2 are normal. Lungs are clear to auscultation with good movement of air bilaterally. Abdomen is soft nontender with no hepatospleno megaly. There is no palpable, pulsatile or abdominal bruit appreciated. There is no asymmetry, swelling, discoloration, leg vein distention, palpable cords or tenderness along the distribution of the deep venous system. Neuro is nonfocal. Affect is depressed. Test Results: EKG is normal with a ventricular rate of 78. NM interval, QRS duration, QT interval and axis are normal. This is unchanged from EKG that was obtained April 27, 2018. CBC is unremarkable. Basic metabolic panels marked for glucose of 203 and potassium 3.2 which are insignificant. First troponin is less than 0.015. Emergency Department Course and Treatment: To evaluate patient's chest pain which may be cardiac versus noncardiac versus GI versus pulmonary EKG and blood work was obtained. Patient was informed since she has multiple risk factors and her workup initially was negative plan is to repeat troponin level at 1530 especially since she had a normal stress test May 24, 2018. Treatment Plan: Second EKG was normal with a ventricular rate of 75. NM interval, QRS duration, QT interval and axis are normal. Second EKG is unchanged from first. Repeat troponin is less than 0.015 and delta is 0. Disposition: Discharge to home Impression: Anterior chest pain unknown etiology History of coronary disease History hypertension History of diabetes History hyperlipidemia This note was generated with [employer] dictation software. It may contain incorrect words, spelling, and punctuation that were not noted in review of the chart prior to signing ED Disposition - Plan for ED Patient: Disposition: Home or Assisted Living Chief Complaint: Chest Pain Instructions: ED Chest Pain Atypical Unkn Cause Referrals: Meme Santiago DO [Primary Care Provider] - 3-5 Days
--- NOTE | 2018-06-03 13:14 | ED.DCSUM_ITS ---
- ER Visit Summary Date of Service: 06/03/18 Chief Complaint: Mid chest pressure History of Present Illness: The patient is a 48 F who has multiple medical problems which include coronary disease, hypertension, diabetes, hypercholesterolemia who presents with mid chest pressure described as a paper weight on her chest with associated symptoms and no radiation. This started prior to arrival. She has had similar presentation with negative workup. She had a cardiac stress test May 19 with no exercise-induced ischemia. Stress test lasted approximately 1 minutes and she achieved workload of 7 metastases. Patient is not presently diaphoretic and dyspneic even though she reports she is short of breath and reports rapid heart and heart racing through her body. Monitor reveals a sinus rhythm rate of 80. She denies fever, chills night sweats. She denies ocular, visual auditory symptoms. She does have history of hiatal hernia. She denies hematemesis, melena hematochezia. She reports she is allergic to nitroglycerin. She states she took her medications morning, which included aspirin. Physical Examination: Vital signs noted and normal. Head is atraumatic normocephalic. Pupils are equal round reactive. Extraocular muscles are intact. TMs are pearly white with landmarks noted. Nares patent with no drainage. Posterior pharynx without erythema or exudate. Uvula is midline. There is no dysphonia or dysphasia. Trachea is midline. There is no stridor with auscultation of the neck. Heart is regular without murmur, gallop or rub. S1 and S2 are normal. Lungs are clear to auscultation with good movement of air bilaterally. Abdomen is soft nontender with no hepatospleno megaly. There is no palpable, pulsatile or abdominal bruit appreciated. There is no asymmetry, swelling, discoloration, leg vein distention, palpable cords or tenderness along the distribution of the deep venous system. Neuro is nonfocal. Affect is depressed. Test Results: EKG is normal with a ventricular rate of 78. NC interval, QRS duration, QT interval and axis are normal. This is unchanged from EKG that was obtained April 27, 2018. CBC is unremarkable. Basic metabolic panels marked for glucose of 203 and potassium 3.2 which are insignificant. First troponin is less than 0.015. Emergency Department Course and Treatment: To evaluate patient's chest pain which may be cardiac versus noncardiac versus GI versus pulmonary EKG and blood work was obtained. Patient was informed since she has multiple risk factors and her workup initially was negative plan is to repeat troponin level at 1530 especially since she had a normal stress test May 24, 2018. Treatment Plan: Second EKG was normal with a ventricular rate of 75. NC interval, QRS duration, QT interval and axis are normal. Second EKG is unchanged from first. Repeat troponin is less than 0.015 and delta is 0. Disposition: Discharge to home Impression: Anterior chest pain unknown etiology History of coronary disease History hypertension History of diabetes History hyperlipidemia This note was generated with [employer] dictation software. It may contain incorrect words, spelling, and punctuation that were not noted in review of the chart prior to signing ED Disposition - Plan for ED Patient: Disposition: Home or Assisted Living Chief Complaint: Chest Pain Instructions: ED Chest Pain Atypical Unkn Cause Referrals: Meme Santiago DO [Primary Care Provider] - 3-5 Days
[2018-06-03 13:25] VITALS: BP 158/96; PULSE 86; RESP 15; O2SAT 96
[2018-06-03 14:17] VITALS: BP 129/98; PULSE 76; RESP 15; O2SAT 95
--- NOTE | 2018-06-03 15:26 | EKG12_ITS ---
Test Reason : CHEST PAIN Blood Pressure : / mmHG Vent. Rate : 078 BPM Atrial Rate : 078 BPM P-R Int : 182 ms QRS Dur : 090 ms QT Int : 394 ms P-R-T Axes : 014 005 -10 degrees QTc Int : 449 ms Normal sinus rhythm Normal ECG Confirmed by ABEL LAZARO, TOM ([id number]), social media editor KAIT ELMORE ([id number]) on 06/06/2018 1:27:50 PM Referred By: Darnell Montelongo Confirmed By:TOM ROMAN MD
[2018-06-03 15:37] VITALS: BP 156/93; PULSE 69; RESP 15; O2SAT 95
[2018-06-03 16:38] VITALS: BP 146/85; PULSE 74; RESP 14; O2SAT 95
== END 2018-06-03 16:39 | disposition home or self-care (01) ==
PROVIDERS: Emergency Provider Emergency Medicine; Family Provider Family Medicine; PCP Family Medicine
DX: R07.9 Chest pain, unspecified (principal); I25.10 Atherosclerotic heart disease of native coronary artery without angina pectoris; I10 Essential (primary) hypertension; E11.9 Type 2 diabetes mellitus without complications; E78.5 Hyperlipidemia, unspecified; R11.0 Nausea; R06.00 Dyspnea, unspecified; E78.00 Pure hypercholesterolemia, unspecified; Z82.49 Family history of ischemic heart disease and other diseases of the circulatory system
CPT/HCPCS: 80048; 84484; 85025; 93005; 99284; A4216

== ENCOUNTER 2018-06-06 15:15 | Outpatient (RCR) | payer MEDICAID, SELFPAY ==
[2018-01-07 14:40] VITALS: BMI 41.5
[2018-05-05 09:44] VITALS: BMI 40.7
[2018-05-07 01:43] VITALS: BP 120/90; BP 122/80
[2018-05-09 09:58] VITALS: BMI 40.7
[2018-05-23 09:41] VITALS: BP 132/98; BP 142/92
--- NOTE | 2018-05-23 09:41 | CR.ITP_ITS ---
Exercise - 60-Day Assessment - Visit Date of Eval: 05/23/18 Session #:: 18 - Stages of Change Stages of Change:: Action - Exercise Prescription Mode:: Treadmill, Airdyne, NuStep, Arm Ergometer Frequency (x/week): 3 Duration:: 30-45 METs: 4 Target Heart Rate:: 121-129 w max HR 118 - Hypertension Resting Blood Pressure:: 132/98 - continuing to monitor BPs Peak Exercise Blood Pressure:: 142/92 Medication Changes:: Yes - Intervention Home Exercise/Activity Goal:: Sitting Time <3 hrs/day - Education Goals:: Warm-up, RPE ZOYA Scale, S/S, Safe Exercise, Self-Monitoring - Exercise Program Goals Exercise Program Goals: Aerobic Activity >30 min Nutrition - Initial Assessment - Program Goals Nutrition Program Goals: LDL <70. Total Cholesterol <200. HDL >45. Triglycerides <150. HgbA1C <7%. BMI <25 - Diabetes Do you monitor your blood sugar at home?: Yes Nutrition - 60-Day Assessment - Program Goals Nutrition Program Goals: LDL <70. Total Cholesterol <200. HDL >45. Triglycerides <150. HgbA1C <7%. BMI <25 - Visit Date of Eval: 05/23/18 - Stages of Change Stages of Change:: Action - Lipids Has the patient seen the dietitian?: Yes - Diabetes Diabetes:: No - Weight Management Weight:: 241 lb - Why Weight Program referral - Intervention Referral to dietitian:: Yes Referral to Diabetic Clinic:: No Will attend diet classes:: Yes - Education Attended class for:: Healthy eating Tobacco - Initial Assessment - Program Goals Tobacco Program Goals: Complete smoking cessation. Attend education classes. Improve Knowledge Test score - Learning Barriers Learning Barriers: Vision - glasses, Cognitive, Ready to Learn Tobacco - 60-Day Assessment - Program Goals Tobacco Program Goals: Complete smoking cessation. Attend education classes. Improve Knowledge Test score - Stage of Change Stages of Change:: Action - Learning Barriers Learning Barriers: Participates in education, Change in behavior - Family Support Do you have family support?: Yes - Tobacco Use Tobacco Use: Non-smoker Do you use smokeless tobacco?: No - Intervention Education Schedule Given:: Yes - Education Attended class for:: Coronary artery disease, Risk factors, Sexuality, Medical compliance, Cardiac A&P, Angina signs & symptoms Psychosocial - Initial Assess - Target Goals Target Goals: Assess presence or absence of depression. Using a valid screening tool, maximizes coping skills. Positive support system - Psychosocial Test Tool Used:: HANDS Depression Questionnaire - Assistive Devices Fall Risk Assessed:: Yes Psychosocial - 60-Day Assess - Target Goals Target Goals: Assess presence or absence of depression. Using a valid screening tool, maximizes coping skills. Positive support system - Stages of Change Stages of Change:: Action - Psychosocial Test Tool Used:: HANDS Depression Questionnaire - Intervention PS - Interventions: Yes Attend Stress Management Classes, Yes Uses Stress Management Skills, No Referral to Mental Health, No Referral to [facility] Case Management, No Referral to Physician - Education Attended classes for:: Coping techniques, Signs & symptoms of depression, Stress management, Relaxation techniques - Patient/Program Goal Preventative Medication(s):: Aspirin, Clopidogrel, Beta katie, Statin/lipid - Assistive Devices Assistive Devices:: None Fall Risk Assessed:: Yes Patient Health Questionnaire 60-Day Re-eval Assessment 1. Little interest or pleasure in doing things: Not at all 2. Feeling down, depressed, or hopeless: Not at all 3. Trouble falling or staying asleep, or sleeping too much: Several days 4. Feeling tired or having little energy: Not at all 5. Poor appetite or overeating: Not at all 6. Feeling bad about yourself -- or that you are a failure or have let yourself or your family down: Not at all 7. Trouble concentrating on things, such as reading the newspaper or watching television: Not at all 8. Moving or speaking so slowly that other people could have noticed. Or the opposite - being so fidgety or restless that you have been moving around a lot more than usual: Not at all 9. Thoughts that you would be better off , or of hurting yourself in some way: Not at all Total Score: 1 Self-Efficacy 60-Day Re-eval Assessment We would like to know how confident you are in doing certain activities. Please select your confidence level for:: Select your confidence level for the following using the scale 1-10 where 1 is not at all confident and 10 is totally confident. Your score is the average of all 6 responses. Fatigue: How confident are you that you can keep the fatigue caused by your disease from interfering with the things you want to do? Select Number: 9 Physical Discomfort or Pain: How confident are you that you can keep the physical discomfort or pain of your disease from interfering with the things you want to do? Select Number: 10 Emotional Distress: How confident are you that you can keep the emotional distress caused by your disease from interfering with the things you want to do? Select Number: 9 Other Symptoms or Health Problems: How confident are you that you can keep other symptoms or health problems from interfering with the things you want to do? Select Number: 9 Different Tasks and Activities: How confident are you that you can do the different tasks and activities needed to manage your health condition so as to reduce your need to see a doctor? Select Number: 10 Medication: How confident are you that you can do things other than just taking medication to reduce how much your illness affects your everyday life? Select Number: 10 Total Score:: 9
== END 2018-06-06 23:59 ==
LOC: CR 15:15
PROVIDERS: Family Provider Family Medicine; PCP Family Medicine; Referring Provider Internal Medicine Cardiovascular Disease; Visit Provider Internal Medicine Cardiovascular Disease
DX: I25.10 Atherosclerotic heart disease of native coronary artery without angina pectoris (principal); I10 Essential (primary) hypertension; E78.5 Hyperlipidemia, unspecified; Z95.5 Presence of coronary angioplasty implant and graft
CPT/HCPCS: 93798

== ENCOUNTER 2018-06-14 12:43 | Outpatient (RCR) | payer MEDICAID, SELFPAY ==
[2018-01-07 14:40] VITALS: BMI 41.5
[2018-06-07 01:10] VITALS: BMI 40.7
== END 2018-07-07 23:59 ==
LOC: DC 12:43
PROVIDERS: Family Provider Family Medicine; PCP Family Medicine; Visit Provider Internal Medicine Cardiovascular Disease
DX: E11.9 Type 2 diabetes mellitus without complications (principal); E66.9 Obesity, unspecified; Z71.3 Dietary counseling and surveillance
CPT/HCPCS: 97802

== ENCOUNTER 2018-06-24 15:15 | Outpatient (RCR) | payer MEDICAID, SELFPAY ==
[2018-01-07 14:40] VITALS: BMI 41.5
[2018-06-07 01:10] VITALS: BP 132/98; BP 142/92
[2018-06-21 13:31] VITALS: BMI 41.7
--- NOTE | 2018-06-22 08:21 | PCM.CR.ITP ---
General Information - General Information Admitting Diagnosis: PCI w/coronary stent placement - Education/Goals Cardiac Rehabilitation Goals: 1. Maintain the individual as the primary focus of care. 2. To improve the patient's quality of life. 3. Identification of cardiac risk factors and provide cardiac risk factor management. 4. Enhance the psychosocial status of the patient. 5. Reconditioning enough to allow the patient to resume customary activities. 6. Control symptoms of cardiac disease Scale for measuring improvement of personal goals: Enter appropriate number in Comments. 2 = Unchanged. 3 = Slightly Better. 4 = Moderate Improvement. 5 = Met my Goal Exercise - 90-Day Assessment - Visit Date of Eval: 06/22/18 Session #:: 27 - Stages of Change Stages of Change:: Action - Exercise Prescription Mode:: Treadmill, NuStep, Arm Ergometer Frequency (x/week): 3 Duration:: 30-45 METs: 4 Target Heart Rate:: 121-129 Max HR 132 - Hypertension Resting Blood Pressure:: 118/82 Peak Exercise Blood Pressure:: 120/80 - Intervention Home Exercise/Activity Goal:: Sitting Time <3 hrs/day - Education Goals:: Warm-up, RPE ZOYA Scale, S/S, Safe Exercise, Self-Monitoring - Exercise Program Goals Exercise Program Goals: Aerobic Activity >30 min, B/P <130/80 Nutrition - Initial Assessment - Program Goals Nutrition Program Goals: LDL <70. Total Cholesterol <200. HDL >45. Triglycerides <150. HgbA1C <7%. BMI <25 - Diabetes Do you monitor your blood sugar at home?: Yes Nutrition - 90-Day Assessment - Program Goals Nutrition Program Goals: LDL <70. Total Cholesterol <200. HDL >45. Triglycerides <150. HgbA1C <7%. BMI <25 - Visit Date of Eval: 06/22/18 - Stages of Change Stages of Change:: Action - Lipids Has the patient seen the dietitian?: No - Weight Management Weight:: 106.594 kg - Intervention Referral to dietitian:: No Referral to Diabetic Clinic:: No Will attend diet classes:: Yes - Education Attended class for:: Signs & symptoms of hypoglycemia, Signs & symptoms of hyperglycemia, Relate diabetes to coronary artery disease, Healthy eating Tobacco - Initial Assessment - Program Goals Tobacco Program Goals: Complete smoking cessation. Attend education classes. Improve Knowledge Test score - Learning Barriers Learning Barriers: Vision - glasses, Cognitive, Ready to Learn Tobacco - 90-Day Assessment - Program Goals Tobacco Program Goals: Complete smoking cessation. Attend education classes. Improve Knowledge Test score - Stage of Change Stages of Change:: Action - Learning Barriers Learning Barriers: Participates in education - Family Support Do you have family support?: Yes - Tobacco Use Tobacco Use: Non-smoker - Intervention Smoking Cessation Referral:: No Individual Education/Counseling:: No Education Schedule Given:: Yes - Education Attended class for:: Tobacco triggers, Coronary artery disease, Risk factors, Sexuality, Medical compliance, Cardiac A&P, Angina signs & symptoms Psychosocial - Initial Assess - Target Goals Target Goals: Assess presence or absence of depression. Using a valid screening tool, maximizes coping skills. Positive support system - Psychosocial Test Tool Used:: HANDS Depression Questionnaire - Assistive Devices Fall Risk Assessed:: Yes Psychosocial - 90-Day Assess - Target Goals Target Goals: Assess presence or absence of depression. Using a valid screening tool, maximizes coping skills. Positive support system - Stages of Change Stages of Change:: Action - Psychosocial Test Tool Used:: HANDS Depression Questionnaire - Intervention PS - Interventions: Yes Attend Stress Management Classes, Yes Uses Stress Management Skills, No Referral to Mental Health, No Referral to [facility] Case Management, No Referral to Physician - Education Attended classes for:: Coping techniques, Signs & symptoms of depression, Stress management, Relaxation techniques - Assistive Devices Assistive Devices:: None Fall Risk Assessed:: Yes Patient Health Questionnaire 90-Day Re-eval Assessment 1. Little interest or pleasure in doing things: Not at all 2. Feeling down, depressed, or hopeless: Not at all 3. Trouble falling or staying asleep, or sleeping too much: Several days 4. Feeling tired or having little energy: Not at all 5. Poor appetite or overeating: Not at all 6. Feeling bad about yourself -- or that you are a failure or have let yourself or your family down: Not at all 7. Trouble concentrating on things, such as reading the newspaper or watching television: Not at all 8. Moving or speaking so slowly that other people could have noticed. Or the opposite - being so fidgety or restless that you have been moving around a lot more than usual: Not at all 9. Thoughts that you would be better off , or of hurting yourself in some way: Not at all How difficult have these problems made it for you to do your work, take care of things at home, or get along with other people?: Not difficult at all Total Score: 1 Self-Efficacy 90-Day Re-eval Assessment We would like to know how confident you are in doing certain activities. Please select your confidence level for:: Select your confidence level for the following using the scale 1-10 where 1 is not at all confident and 10 is totally confident. Your score is the average of all 6 responses. Fatigue: How confident are you that you can keep the fatigue caused by your disease from interfering with the things you want to do? Select Number: 9 Physical Discomfort or Pain: How confident are you that you can keep the physical discomfort or pain of your disease from interfering with the things you want to do? Select Number: 8 Emotional Distress: How confident are you that you can keep the emotional distress caused by your disease from interfering with the things you want to do? Select Number: 8 Other Symptoms or Health Problems: How confident are you that you can keep other symptoms or health problems from interfering with the things you want to do? Select Number: 9 Different Tasks and Activities: How confident are you that you can do the different tasks and activities needed to manage your health condition so as to reduce your need to see a doctor? Select Number: 10 Medication: How confident are you that you can do things other than just taking medication to reduce how much your illness affects your everyday life? Select Number: 10 Total Score:: 9
[2018-06-22 08:26] VITALS: BP 118/82; BP 120/80
== END 2018-07-07 23:59 ==
LOC: CR 15:15
PROVIDERS: Family Provider Family Medicine; PCP Family Medicine; Referring Provider Internal Medicine Cardiovascular Disease; Visit Provider Internal Medicine Cardiovascular Disease
DX: I25.10 Atherosclerotic heart disease of native coronary artery without angina pectoris (principal); I10 Essential (primary) hypertension; E78.5 Hyperlipidemia, unspecified; Z95.5 Presence of coronary angioplasty implant and graft
CPT/HCPCS: 93798

== ENCOUNTER 2018-07-11 14:51 | Emergency (ER) | payer MEDICAID, SELFPAY ==
[2018-01-07 14:40] VITALS: BMI 41.5
[2018-07-11 14:51] VITALS: BMI 41.7
[2018-07-11 14:52] VITALS: BP 119/85; PULSE 81; RESP 17; TEMP 36.6; O2SAT 98; BMI 38.0
--- NOTE | 2018-07-11 14:56 | RAD_ITS ---
STUDY: X-RAY - LEFT KNEE REASON FOR EXAM: Female, 48 years old. Pain following a fall. TECHNIQUE: 4 view(s) of the knee. COMPARISON: None. FINDINGS: Normal visualized distal femur. Normal visualized proximal tibia and fibula. Normal proximal tibiofibular articulation. Normal medial femorotibial compartment. Normal lateral femorotibial compartment. Normal patellofemoral articulation. The soft tissue structures are unremarkable. RAD/Knee 4 or More Views IMPRESSION: Normal x-ray examination of the knee. Electronically Signed: Real Arnett MD at 15:28 EST , Service support ,
--- NOTE | 2018-07-11 17:02 | ED.VISSUMM ---
- ER Visit Summary Date of Service: 07/11/18 Chief Complaint: Left knee pain History of Present Illness: The patient is a [address] Santiago. She reports that she slipped on the ice and landed on her left patella. She reports she has sharp pain is 10-10 severity. Is worsened by movement relieved by rest. She denies any paresthesias distally. Denies any blow to the head or loss of consciousness. No neck, back, wrist, or hip pain. Physical Examination: Vitals: Stable. Afebrile. Neck: No vertebral tenderness. Full ROM without difficulty. Cleared by NEXUS criteria. Back: No vertebral tenderness. General: A&O x 3. NAD. Cardiovascular exam: Regular rate and rhythm, no murmur, rub or gallop. Respiratory exam: Chest nontender. No crepitus. Clear to auscultation bilaterally. No wheezes or stridor. Abdominal exam: Soft, nontender, nondistended, normal bowel sounds. No pain in RUQ or LUQ specifically. No peritoneal signs. Extremity: Moderate tenderness palpation over her left patella. No soft tissue swelling or contusion. She is neurovascular intact distally. Test Results: Left knee x-ray shows no acute disease. Emergency Department Course and Treatment: Patient was treated with Tylenol and placed on crutches. Treatment Plan: Patient be discharged instructions use Tylenol for pain. Follow-up with Dr. Santiago in 1 week if not improving. Return to the emergency department for any worsening symptoms. Disposition: To home in improved and stable condition. Impression: 1. Fall. 2. Left knee pain. This note was generated with [employer] dictation software. It may contain incorrect words, spelling, and punctuation that were not noted in review of the chart prior to signing ED Disposition - Plan for ED Patient: Disposition: Home or Assisted Living Instructions: ED Contusion Lower Ext Referrals: Meme Santiago DO [Primary Care Provider] - 1 Week if not improving
[2018-07-11] MEDS: Acetaminophen 325 MG Tablet 1000 MG PO (17:15)
[2018-07-11 17:32] VITALS: BP 143/90; PULSE 80; RESP 18
--- NOTE | 2018-07-11 18:31 | NURSING ---
PT LEFT WITH YOUTH SIZE CRUTCHES. ED STOCK OUT OF ADULT CRUTCHES. ANANT AWARE. IS BRINGING MORE BUT REP IN [place]. PT STATES YOUTH CRUTCHES WILL WORK TO BLALANCE HER WHICH IS ALL SHE SAYS SHE NEEDS FOR BRUISED L KNEE. DORENE RN AWARE
== END 2018-07-11 17:37 | disposition home or self-care (01) ==
LOC: ED 17:19
PROVIDERS: Emergency Provider Emergency Medicine; Family Provider Family Medicine; PCP Family Medicine
DX: M25.562 Pain in left knee (principal); W00.0XXA Fall on same level due to ice and snow, initial encounter; Y93.9 Activity, unspecified; Y92.89 Other specified places as the place of occurrence of the external cause; Y99.9 Unspecified external cause status; E11.9 Type 2 diabetes mellitus without complications; I10 Essential (primary) hypertension; E78.00 Pure hypercholesterolemia, unspecified; I25.10 Atherosclerotic heart disease of native coronary artery without angina pectoris; Z95.5 Presence of coronary angioplasty implant and graft
CPT/HCPCS: 73564; 99284

== ENCOUNTER 2018-08-31 08:09 | Outpatient (RCR) | payer MEDICAID, SELFPAY ==
[2018-01-07 14:40] VITALS: BMI 41.5
[2018-07-08 01:26] VITALS: BMI 40.7
== END 2018-09-04 23:59 ==
LOC: DC 08:09
PROVIDERS: Family Provider Family Medicine; PCP Family Medicine; Visit Provider Internal Medicine Cardiovascular Disease
DX: E11.9 Type 2 diabetes mellitus without complications (principal); E66.9 Obesity, unspecified; Z71.3 Dietary counseling and surveillance
CPT/HCPCS: 97803

== ENCOUNTER 2018-09-06 09:25 | Emergency (ER) | payer MEDICAID, SELFPAY ==
[2018-01-07 14:40] VITALS: BMI 41.5
[2018-09-06 09:26] VITALS: BP 140/74; PULSE 80; RESP 16; TEMP 36; O2SAT 97; BMI 39.4
--- NOTE | 2018-09-06 10:14 | RAD_ITS ---
STUDY: X-RAY - RIGHT KNEE REASON FOR EXAM: Female, 48 years old. Pain following a fall. TECHNIQUE: 4 view(s) of the knee. COMPARISON: None. FINDINGS: Normal visualized distal femur. Normal visualized proximal tibia and fibula. Normal proximal tibiofibular articulation. Normal medial femorotibial compartment. Normal lateral femorotibial compartment. Normal patellofemoral articulation. The soft tissue structures are unremarkable. RAD/Knee 4 or More Views IMPRESSION: Normal x-ray examination of the knee. Electronically Signed: Real Arnett, at 11:24 EDT , Service support ,
--- NOTE | 2018-09-06 10:14 | RAD_ITS ---
STUDY: X-RAY CHEST REASON FOR EXAM: Female, 48 years old. Anterior chest pain following a fall. TECHNIQUE: PA and lateral views of the chest. COMPARISON: Comparison is made with prior study dated April 27, 2018. FINDINGS: The lungs are clear and expanded. There is no demonstrated pleural abnormality. Normal size heart. Normal mediastinum and rusty. Normal visualized pulmonary arteries. There is atherosclerotic tortuosity of the aortic arch and descending thoracic aorta. There are diffuse degenerative changes of the visualized thoracic spine. Normal visualized ribs, clavicles, and shoulders. There is no demonstrated abnormality of the visualized soft tissue structures of the upper abdomen. RAD/Chest PA and Lateral IMPRESSION: No acute abnormality is seen. Electronically Signed: Real Arnett, at 11:23 EDT , Service support ,
--- NOTE | 2018-09-06 10:19 | ED.VISSUMM ---
- ER Visit Summary Date of Service: 09/06/18 Chief Complaint: Fall History of Present Illness: The patient is a 48 F who fell 1 week ago after her knee gave out. She falls in this fashion from time to time. She injured her left chest and right knee when she fell. She did not lose consciousness or have any other injuries. She does take aspirin and Plavix among her other medications. Denies shortness of breath, nausea, or any other associated symptoms. Physical Examination: Afebrile and vital signs unremarkable. Head and neck are atraumatic. Heart is regular rate and rhythm. Lungs are clear bilaterally. She does have some chest tenderness to the left parasternal region. No crepitus, deformities, or other abnormal findings. Abdomen is soft and nontender. Neck is nontender. Arms show good range of motion, strength, and sensation. Right knee diffusely tender to palpation anteriorly. Good range of motion. No laxity. No deformity. Neurovascular intact distally. Calf soft and supple. Test Results: X-rays of the knee and chest were obtained. Emergency Department Course and Treatment: She was treated with tramadol while awaiting results. X-rays were negative. There is nothing to suggest cardiac, aortic, or PE disease. Patient will continue her home tramadol. Follow-up with primary care or return for any new or worsening issues. Treatment Plan: As above Disposition: Discharge Impression: 1. Chest wall pain 2. Right knee sprain This note was generated with [employer] dictation software. It may contain incorrect words, spelling, and punctuation that were not noted in review of the chart prior to signing ED Disposition - Plan for ED Patient: Referrals: Meme Santiago DO [Primary Care Provider] -
[2018-09-06] MEDS: traMADol 50 MG Tablet PO (10:26)
--- NOTE | 2018-09-06 12:12 | ED.DEP ---
ED Disposition - Plan for ED Patient: Instructions: ED Contusion Chest Wall Referrals: Meme Santiago DO [Primary Care Provider] -
[2018-09-06 12:23] VITALS: BP 134/76; PULSE 83; RESP 14; O2SAT 99
== END 2018-09-06 12:27 | disposition home or self-care (01) ==
LOC: ED 10:21
PROVIDERS: Emergency Provider Emergency Medicine; Family Provider Family Medicine; PCP Family Medicine
DX: R07.89 Other chest pain (principal); S83.91XA Sprain of unspecified site of right knee, initial encounter; W19.XXXA Unspecified fall, initial encounter; Y93.9 Activity, unspecified; Y92.89 Other specified places as the place of occurrence of the external cause; Y99.9 Unspecified external cause status; I25.10 Atherosclerotic heart disease of native coronary artery without angina pectoris; E11.9 Type 2 diabetes mellitus without complications; I10 Essential (primary) hypertension; E78.00 Pure hypercholesterolemia, unspecified; Z95.5 Presence of coronary angioplasty implant and graft
CPT/HCPCS: 71046; 73564; 99283

== ENCOUNTER 2018-09-22 08:56 | Outpatient (RCR) | payer MEDICAID, SELFPAY ==
[2018-01-07 14:40] VITALS: BMI 41.5
[2018-09-19 09:28] VITALS: BMI 39.4
== END 2018-10-04 23:59 ==
LOC: DC 08:56
PROVIDERS: Family Provider Family Medicine; PCP Family Medicine; Visit Provider Internal Medicine Cardiovascular Disease
DX: E11.9 Type 2 diabetes mellitus without complications (principal); E66.9 Obesity, unspecified; Z71.3 Dietary counseling and surveillance
CPT/HCPCS: G0108

== ENCOUNTER 2018-10-06 08:11 | Outpatient (RCR) | payer MEDICAID, SELFPAY ==
[2018-01-07 14:40] VITALS: BMI 41.5
[2018-09-19 09:28] VITALS: BMI 39.4
== END 2018-11-04 23:59 ==
LOC: DC 08:11
PROVIDERS: Family Provider Family Medicine; PCP Family Medicine; Visit Provider Internal Medicine Cardiovascular Disease
DX: E11.9 Type 2 diabetes mellitus without complications (principal); E66.9 Obesity, unspecified; Z71.3 Dietary counseling and surveillance
CPT/HCPCS: 97803

== ENCOUNTER 2018-10-10 08:30 | Outpatient (RCR) | payer MEDICAID, SELFPAY ==
[2018-01-07 14:40] VITALS: BMI 41.5
[2018-09-19 09:28] VITALS: BMI 39.4
--- NOTE | 2018-09-27 08:41 | HP.PTEVAL ---
Patient's Visit Information ROSA CHAN is a 48 year old F referred to Physical Therapy by CHEO Noland with a diagnosis of R knee patellar tendonitis with poss Hoffas impingement. Date of Evaluation: 09/27/18 Physical Therapist: TELLY Camarillo - Visit Plan Frequency: 2x /Week Duration: 4 Weeks Plan: 2X/ week for 4 weeks for B knee and hip strengthening, some functional balance activities with stairs/ curb steps, gait training with HEP and modalities as needed. - Subjective Findings: She has had trouble with her L knee for a long time. Her R knee started acting up like 3 months ago. It will tighten up and then the next minute it will let go. She will actually fall to the ground. They gave her a cortizone shot and it sort of helped. She has a brace on her L knee and will be getting one for the R knee but Dr still wants her to exercise. She does get some numbness and tingling before it starts to grab. She has some back pain but she has had that her whole life. Her L knee had to have a scope cause her L knee cap was falling apart, no corrective surgery. Stairs: She can't do the stairs cause she gets too winded and her knees hurt a lot worse. Her knees hurt at work when she is on her feet all the time. She does the stairs everyday at home. - Pain R knee pain Pain Intensity (Out of 10): 5 Pain Intensity Range: 10 - Objective Gait:Walks with decrease stance time on the L and almost drags the L LE. Small steppage gait. Wearing a brace on the L knee. LE MMT: B hip flex 4/5, B knee ent 4/5, B knee ext 4/5, B knee flex 4-/5, B hip and 4-/5. Decreased balnce with heel to toe walking and able to bridge 3/4 normal ROM bridge. Patellar DTR 2+/3 B. R knee AROM: 123 and -2 degrees from full extension. L knee AROM: 110 and -2 degrees from full extension. Palpation: tender over the infra lateral part of the knee/patellar tendon. Stairs: Ascend with the Left and descend with the R using to rails and step two gait pattern. Sit to stand: Able to get up without the use of her arms on the chair but very slow controlled movement - Goals Goal 1:: I HEP Goal Time Frame: 4-6 Weeks Goal 2:: Decrease R knee pain to 2/10 with ADL's Goal Time Frame: 4-6 Weeks Goal 3:: Be able to go up and down the stairs recip with 1 hand rail Goal Time Frame: 4-6 Weeks Goal 4:: Walk with a normal gait pattern Goal Time Frame: 4-6 Weeks Goal 5:: Increase LE strength on the R by 1/2 mmuscle grade ( at the time of the eval: LE MMT: B hip flex 4/5, B knee ent 4/5, B knee ext 4/5, B knee flex 4-/5, B hip and 4-/5. Decreased balnce with heel to toe walking and able to bridge 3/4 normal ROM bridge) Goal Time Frame: 4-6 Weeks - Rehabilitation Potential Rehabilitation Potential: Good - Anticipated Interventions Patient/Client Instruction: Educate patient on: Condition, Plan of Care For the Purpose of:: To decrease pain, To decrease swelling/inflammation, To increase ROM, To improve muscle performance and motor function, To improve ability to perform ADL's, To increase tolerance to activity/condition/position, To improve gait and locomotor functions, To improve health of tissue, To decrease soft tissue restriction, To increase flexibility/ROM Therapeutic Exercise to Include: Strength training, Balance training, Postural training, Gait and locomotor training, Active ROM For the Purpose of:: To decrease pain, To increase ROM, To improve nutrient delivery to tissue, To improve muscle performance and motor function, To improve ability to perform ADL's, To improve performance and independence with ADL's, To decrease level of supervision to perform tasks, To improve gait and locomotor functions, To improve health of tissue, To increase flexibility/ROM Functional Training to Include: Gait training For the Purpose of:: To improve gait and locomotor functions IF ES: Yes Cryotherapy (ice pack, ice massage): Yes Ultrasound (thermal/non thermal): Yes For the Purpose of:: To decrease pain, To decrease swelling/inflammation, To improve nutrient delivery to tissue Thank you for the opportunity to evaluate your patient. For Medicare and Medicare HMO plans, please review the plan of care and approve it. It will need to be FAXED BACK to us at [phone] for Medicare purposes. For Medicare only, by signing this I certify the plan of care. Please let me know if there are questions or concerns regarding this plan of care. Physician Signature: Date:
--- NOTE | 2019-01-06 08:12 | HP.PT.NRP ---
HP - Discharge Summary (1) - Patient Information NOHELIA CHAN was seen in my office for initial evaluation on 09/27/18. The following Plan of Care was established for this patient: Initial Frequency: 2x /Week Initial Duration: 4 Weeks - Anticipated Interventions Patient/Client Instruction: Educate patient on: Condition, Plan of Care For the Purpose of:: To decrease pain, To decrease swelling/inflammation, To increase ROM, To improve muscle performance and motor function, To improve ability to perform ADL's, To increase tolerance to activity/condition/position, To improve gait and locomotor functions, To improve health of tissue, To decrease soft tissue restriction, To increase flexibility/ROM Therapeutic Exercise to Include: Strength training, Balance training, Postural training, Gait and locomotor training, Active ROM For the Purpose of:: To decrease pain, To increase ROM, To improve nutrient delivery to tissue, To improve muscle performance and motor function, To improve ability to perform ADL's, To improve performance and independence with ADL's, To decrease level of supervision to perform tasks, To improve gait and locomotor functions, To improve health of tissue, To increase flexibility/ROM Functional Training to Include: Gait training For the Purpose of:: To improve gait and locomotor functions IF ES: Yes Cryotherapy (ice pack, ice massage): Yes Ultrasound (thermal/non thermal): Yes For the Purpose of:: To decrease pain, To decrease swelling/inflammation, To improve nutrient delivery to tissue This patient was last seen in our office 10/10/18. Pertinent comments regarding their Physical therapy will appear below: DC PT At this point I will be discontinuing this patient from physical therapy. I would be happy to see this patient again in the future if found appropriate by the physician. Thank you! Nohelia Fonseca, MPT
== END 2018-10-10 19:00 | disposition home or self-care (01) ==
LOC: PT 08:30
PROVIDERS: Family Provider Family Medicine; PCP Family Medicine; Visit Provider Physician Assistant
DX: M76.51 Patellar tendinitis, right knee (principal)
CPT/HCPCS: 97110; 97161

== ENCOUNTER → 2018-11-23 | Outpatient (CLI) | payer MEDICAID, SELFPAY ==
[2018-01-07 14:40] VITALS: BMI 41.5
[2018-11-09 12:56] VITALS: BMI 38.4
[2018-11-23 12:40] LABS: Absolute Lymphocyte Count 2.24 X10^3/ul (0.83-4.51); Absolute Neutrophil Count 4.6 X10^3/uL (2.0-7.7); Basophil# 0.05 X10^3/uL; Basophil% 0.6 % (0-1); Eosinophil# 0.41 X10^3/uL; Eosinophils% 5.3 % (0-5); Hematocrit 38.8 % (37-47); Hemoglobin 12.8 g/dl (12.0-15.0); Lymphocyte # 2.24 X10^3/ul (4.0); Lymphocyte % 28.8 % (19-41); Mean Corpuscular Hgb 26.8 pg (27.0-32.0); Mean Corpuscular Volume 81.2 fL (81-99); Mean Platelet Vol. 10.1 fl (6.2-12.0); Monocyte# 0.49 X10^3/uL; Monocyte% 6.3 % (0-10); Neutrophil # 4.57 X10^3/uL (2.7-7.7); Neutrophil % 58.7 % (47-70); Platelet Count 241 K/mm3 (150-450); RBC Distribution Width SD 40.8 fl (35.1-43.9); Red Blood Count 4.78 M/mm3 (4.2-5.4); White Blood Count 7.8 K/mm3 (4.4-11.0)
[2018-11-23 12:42] LABS: POSITIVE COUNT NO; POSITIVE DIFFERENTIAL NO; POSITIVE MORPHOLOGY NO
[2018-11-23 12:56] LABS: ALB/GLOB Ratio 1.1 RATIO (0.9-2.4); AST(SGOT) 13 U/L (15-37); Alanine Aminotransfer ALT/SGPT 22 U/L (13-56); Albumin, Serum 3.6 g/dL (3.2-5.0); Alkaline Phosphatase 100 U/L (45-117); Anion Gap 9 (5-15); BUN 13 mg/dL (7-18); BUN/Creat Ratio 13.9 RATIO (10-20); Calcium,Total 9.1 mg/dL (8.5-10.1); Chloride 101 mmol/L (98-107); Creatinine, Serum 0.94 mg/dL (0.55-1.02); EST Glomerular Filtration Rate 68 mL/min (>60); Est Glom Filt Rate - Afr Amer 82 mL/min (>60); Globulin 3.3 g/dL (2.2-4.2); Glucose 93 mg/dL (74-106); Potassium 3.1 mmol/L (3.5-5.1); Protein, Total 6.9 g/dL (6.4-8.2); Sodium Level 141 mmol/L (136-145)
[2018-11-23 13:13] LABS: Rubella IgG 3.4 IU/mL
[2018-11-24 16:30] LABS: Rubeola IgG Ab < 25.0 AU/mL (Immune >29.9)
== END | disposition home or self-care (01) ==
LOC: BFHLAB 10:16
PROVIDERS: Family Provider Family Medicine; PCP Family Medicine; Visit Provider Family Medicine
DX: Z01.84 Encounter for antibody response examination (principal); E11.9 Type 2 diabetes mellitus without complications; R53.83 Other fatigue; R10.11 Right upper quadrant pain
CPT/HCPCS: 36415; 80053; 85025; 86762; 86765

== ENCOUNTER 2019-01-04 11:59 | Outpatient (RCR) | payer MEDICAID, SELFPAY ==
[2018-01-07 14:40] VITALS: BMI 41.5
[2018-11-09 12:56] VITALS: BMI 38.4
== END 2019-01-04 23:59 ==
LOC: DC 11:59
PROVIDERS: Family Provider Family Medicine; PCP Family Medicine; Visit Provider Internal Medicine Cardiovascular Disease
DX: E11.9 Type 2 diabetes mellitus without complications (principal); E66.9 Obesity, unspecified; Z71.3 Dietary counseling and surveillance
CPT/HCPCS: G0108

== ENCOUNTER → 2019-02-07 12:17 | Outpatient (CLI) | payer MEDICAID, SELFPAY ==
[2018-01-07 14:40] VITALS: BMI 41.5
[2018-11-09 12:56] VITALS: BMI 38.4
--- NOTE | 2019-02-07 12:20 | NM_ITS ---
CLINICAL: 48-year-old female with reported history of right upper quadrant abdominal pain. RADIONUCLIDE HEPATOBILIARY SCINTIGRAPHY COMPARISON: None available FINDINGS: Following the intravenous administration of 4.8 mCi of 99m Tc Mebrofenin, hepatobiliary images reveal: 1. Relatively prompt and homogeneous radiopharmaceutical concentration is noted by a normal sized liver. No parenchymal defects are identified. 2. Gallbladder activity is identified at 10 minutes post radiopharmaceutical administration. 3. Small intestinal tract is not visualized during 60 minutes of pre-CCK sequential imaging. Small bowel activity is identified following the administration of cholecystokinin. 4. Washout of the radiopharmaceutical by the hepatic parenchyma appears qualitatively normal. Cholecystokinin (0.02 ug/kg) was administered intravenously over a 30-minute period. The post CCK gallbladder ejection fraction calculated at 20 minutes following Cholecystokinin administration was noted to be 86.0 % (normal greater than 35%). During 30 minutes of post CCK imaging, there is no scintigraphic evidence of reflux of the radiotracer into the common hepatic duct or refilling of the gallbladder. NM/Hepatobilliary Img w/Pharm Int IMPRESSION: 1. NORMAL 99m Tc Mebrofenin hepatobiliary imaging examination with Cholecystokinin. A. A gallbladder ejection fraction calculated to be greater than 35% following the administration of Cholecystokinin makes the probability of functional hepatobiliary disease (gallbladder and/or sphincter of Oddi dyskinesia) and/or organic hepatobiliary disease (chronic acalculous cholecystitis and/or cystic duct syndrome) to be low. (Marlen Pineda et al, Journal of Nuclear Medicine 32:1695, 1990). Electronically Signed: Leroy Bañuelos DO at 22:55 EDT Tel , Service support ,
== END ==
PROVIDERS: Family Provider Family Medicine; PCP Family Medicine; Referring Provider Family Medicine; Visit Provider Family Medicine
DX: R10.11 Right upper quadrant pain (principal)
CPT/HCPCS: 78227; A9537; J2805

== ENCOUNTER → 2019-03-13 08:22 | Outpatient (CLI) | payer MEDICAID, SELFPAY ==
[2018-01-07 14:40] VITALS: BMI 41.5
[2018-11-09 12:56] VITALS: BMI 38.4
--- NOTE | 2019-03-13 08:50 | BI_ITS ---
MAMMOGRAPHY - BILATERAL SCREENING 3-D TOMOSYNTHESIS REASON FOR EXAM: Female, 49 years old. Screening PERTINENT HISTORY: No significant family history. BILATERAL DIGITAL MAMMOGRAM WITH TOMOSYNTHESIS: Mediolateraloblique and craniocaudal views demonstrate no evidence of dominant parenchymal masses. No cluster of microcalcifications or architectural distortion is seen. No evidence of skin thickening is identified. There has been no significant change since 03/12/2018. Breast Density: The breast tissue is almost entirely fatty. CAD was used to assist in final assessment. IMPRESSION: NORMAL MAMMOGRAM BILATERALLY. FINAL ASSESSMENT: BIRAD 1 (NEGATIVE) YEARLY MAMMOGRAM RECOMMENDED Approximately 10% of breast cancers are not detected by mammography. A normal mammogram should not delay biopsy of a clinically suspicious abnormality. Electronically Signed: Walter Slater, at 8:11 EDT Tel , Service support , BI/SCREEN MAMM (CAD) W/[place] FIGUEROA
== END ==
PROVIDERS: Family Provider Family Medicine; PCP Family Medicine; Referring Provider Family Medicine; Visit Provider Family Medicine
DX: Z12.31 Encounter for screening mammogram for malignant neoplasm of breast (principal)
CPT/HCPCS: 77063; 77067

== ENCOUNTER → 2019-05-19 15:10 | Outpatient (CLI) | payer MEDICAID, SELFPAY ==
[2018-01-07 14:40] VITALS: BMI 41.5
[2018-11-09 12:56] VITALS: BMI 38.4
--- NOTE | 2019-05-19 15:16 | MRI_ITS ---
STUDY: MRI BRAIN WITHOUT CONTRAST REASON FOR EXAM: Female, 49 years old. Frontal headaches TECHNIQUE: Standardized multiplanar fat and water weighted pulse sequences were obtained. COMPARISON: None. FINDINGS: Normal size of the ventricles and extra-axial spaces for the patient''s age. There are a couple of tiny punctate white matter lesions without mass effect or restricted diffusion indeterminate etiology and clinical significance.. Normal bilateral basal ganglia. Normal thalami. There is no extra-axial fluid accumulation. Normal flow voids within the major intracranial circulation suggesting patency by spin echo criteria. Normal sella turcica, pituitary gland, infundibular stalk, optic chiasm and hypothalamus. Normal tectal plate and pineal gland. Normal midbrain, manda and medulla. Normal cerebellum. Normal basal cisterns. Normal bilateral temporal bones. Normal bilateral internal auditory canals. No demonstrated orbital abnormality, within the constraints of a routine brain study. Normal visualized paranasal sinuses. Normal calvarium and skull base. Normal visualized soft tissue structures. Normal visualized upper cervical spine. MRI/Brain without Contrast IMPRESSION: Minimal nonspecific white matter changes most likely due to small vessel ischemic disease in patient of this age. No evidence for acute infarct No evidence for obstructive hydrocephalus mass or acute bleed. Electronically Signed: Dinh Lopez MD at 16:37 EST , Service support ,
== END ==
PROVIDERS: Family Provider Family Medicine; PCP Family Medicine; Referring Provider Family Medicine; Visit Provider Family Medicine
DX: G43.909 Migraine, unspecified, not intractable, without status migrainosus (principal)
CPT/HCPCS: 70551

== ENCOUNTER 2019-05-20 10:46 | Emergency (ER) | payer OTHER, MEDICAID, SELFPAY ==
[2018-01-07 14:40] VITALS: BMI 41.5
[2018-11-09 12:56] VITALS: BMI 38.4
[2019-05-20 10:47] VITALS: BP 173/107; PULSE 103; RESP 16; TEMP 36.2; O2SAT 97; BMI 39.8
--- NOTE | 2019-05-20 11:02 | RAD_ITS ---
STUDY: X-RAY - THORACIC SPINE REASON FOR EXAM: Female, 49 years old. Fall. Pain. TECHNIQUE: 2 view(s) of the thoracic spine were obtained. COMPARISON: 10/22/2014 FINDINGS: There is no evidence of fracture or dislocation in the thoracic spine. The vertebral body heights are well-maintained. There are stable mild degenerative change. RAD/Thoracic Spine 3 Views IMPRESSION: No fracture or dislocation in the thoracic spine. Stable mild degenerative changes. Electronically Signed: Dimas Thomas, at 11:45 EST Tel , Service support ,
[2019-05-20] MEDS: traMADol 50 MG Tablet PO (11:05)
[2019-05-20] MEDS: Ibuprofen 600 MG Tablet PO (11:05)
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
== END 2019-05-20 12:33 | disposition home or self-care (01) ==
PROVIDERS: Emergency Provider Emergency Medicine; Family Provider Family Medicine; PCP Family Medicine
DX: M54.6 Pain in thoracic spine (principal); S09.90XA Unspecified injury of head, initial encounter; I25.10 Atherosclerotic heart disease of native coronary artery without angina pectoris; G89.29 Other chronic pain; M19.90 Unspecified osteoarthritis, unspecified site; I10 Essential (primary) hypertension; F32.9 Major depressive disorder, single episode, unspecified; E11.9 Type 2 diabetes mellitus without complications; E66.9 Obesity, unspecified; Z87.891 Personal history of nicotine dependence; Z79.82 Long term (current) use of aspirin; Z79.84 Long term (current) use of oral hypoglycemic drugs; Z79.899 Other long term (current) drug therapy; W03.XXXA Other fall on same level due to collision with another person, initial encounter; Y93.89 Activity, other specified; Y92.199 Unspecified place in other specified residential institution as the place of occurrence of the external cause; Y99.0 Civilian activity done for income or pay
CPT/HCPCS: 72072; 99283

== ENCOUNTER → 2019-05-24 11:18 | Outpatient (CLI) | payer OTHER, SELFPAY ==
[2018-01-07 14:40] VITALS: BMI 41.5
[2019-05-24 11:15] VITALS: BMI 39.8
--- NOTE | 2019-05-24 11:18 | RAD_ITS ---
STUDY: X-RAY - LEFT KNEE REASON FOR EXAM: Female, 49 years old. Increasing left knee pain. TECHNIQUE: 4 view(s) of the knee. COMPARISON: None. FINDINGS: Normal visualized distal femur. Normal visualized proximal tibia and fibula. Normal proximal tibiofibular articulation. There is mild degenerative arthrosis of the medial femorotibial compartment. Normal lateral femorotibial compartment. Normal patellofemoral articulation. The soft tissue structures are unremarkable. RAD/Knee 4 or More Views IMPRESSION: Degenerative arthrosis. Electronically Signed: Real Arnett, at 12:15 EST , Service support ,
== END ==
PROVIDERS: Family Provider Family Medicine; PCP Family Medicine; Referring Provider Physician Assistant; Visit Provider Physician Assistant
DX: S86.912A Strain of unspecified muscle(s) and tendon(s) at lower leg level, left leg, initial encounter (principal)
CPT/HCPCS: 73564

== ENCOUNTER → 2019-09-01 07:43 | Outpatient (CLI) | payer MEDICAID, SELFPAY ==
[2018-01-07 14:40] VITALS: BMI 41.5
[2019-08-21 09:20] VITALS: BMI 38.7
--- NOTE | 2019-09-01 07:44 | ECHOCS_ITS ---
Reason For Study: Chest pain Procedure This was a 2D Doppler, Color Flow transthoracic echocardiogram. The study was technically difficult. Exam performed in department. Left Ventricle Normal size and thickness. The estimated ejection fraction is 75 %. Stage 1 diastolic dysfunction. No regional wall motion abnormalities noted. Right Ventricle Normal size and thickness. Normal systolic function. Atria Normal left atrium. Normal right atrium. Normal atrial septum. Mitral Valve The mitral valve is structurally normal. No prolapse or stenosis seen. Tricuspid Valve Normal tricuspid valve. Trivial tricuspid valve insufficiency. Right ventricular systolic pressure estimated to be 19 mmHg. Aortic Valve Trisinus/trileaflet aortic valve. Moderate focal aortic valve thickening. Moderate focal thickening of non coronary cusp with no no signficant aortic stenosis. Pulmonic Valve Normal pulmonic valve. Trivial pulmonic valve insufficiency. Great Vessels Normal aortic root. Normal arch. Normal inferior vena cava. Inferior vena cava collapse with sniff. Pericardium/Pleural No pericardial effusion. Medication 22 gauge I.V. with prn adaptor inserted into left arm. Diluted definity 1ml given slow IV push to enhance endocardial definition. MMode/2D Measurements & Calculations LVIDd: 4.4 cm IVSd: 1.1 cm Ao root diam: 3.7 cm LVIDs: 3.2 cm LVPWd: 1.1 cm RVDd: 2.5 cm FS: 27.9 % LAV(MOD-bp): 34.8 ml LVAd ap4: 28.8 cm2 SV(MOD-sp4): 61.5 ml LAV(MOD-bp) Indexed: 16.5 ml/m2 EDV(MOD-sp4): 88.8 ml LAV(MOD-sp2): 32.3 ml EDV(sp4-el): 92.7 ml LAV(MOD-sp4): 33.9 ml LVAs ap4: 13.8 cm2 ESV(MOD-sp4): 27.3 ml ESV(sp4-el): 28.1 ml EF(MOD-sp4): 69.3 % EF(sp4-el): 69.7 % SV(sp4-el): 64.6 ml LA A4 area: 13.8 cm2 LA dimension(2D): 3.7 cm RA A4 area: 9.8 cm2 Doppler Measurements & Calculations MV E max felix: 55.9 cm/sec Lat Peak E' Felix: 6.4 cm/sec Med Peak E' Felix: 3.4 cm/sec MV A max felix: 80.1 cm/sec E/E' lat: 8.7 E/E' med: 16.3 MV E/A: 0.70 Ao V2 max: 153.1 cm/sec LV V1 max: 93.1 cm/sec PA V2 max: 105.8 cm/sec Ao max P.4 mmHg LV V1 max P.5 mmHg TR max felix: 190.1 cm/sec TR max P.4 mmHg Interpretation Summary The estimated ejection fraction is 75 %. Stage 1 diastolic dysfunction. Trivial tricuspid valve insufficiency. Right ventricular systolic pressure estimated to be 19 mmHg. Moderate focal thickening of non coronary cusp with no no signficant aortic stenosis. Compared to echo report dated 07/07/2017, no appreciable changes noted. The study was technically difficult. Contrast injection was performed. Ordering Physician: Darnell Montelongo Referring Physician: Meme Santiago Performed By: Geovanna Prieto RDCS
== END ==
PROVIDERS: PCP Family Medicine; Referring Provider Internal Medicine Cardiovascular Disease; Visit Provider Internal Medicine Cardiovascular Disease
DX: R07.9 Chest pain, unspecified (principal); I10 Essential (primary) hypertension; E78.5 Hyperlipidemia, unspecified; Z95.5 Presence of coronary angioplasty implant and graft
CPT/HCPCS: 93306; Q9957; A4216; C8929

== ENCOUNTER → 2019-11-09 11:14 | Outpatient (CLI) | payer MEDICAID, SELFPAY ==
[2018-01-07 14:40] VITALS: BMI 41.5
[2019-08-21 09:20] VITALS: BMI 38.7
--- NOTE | 2019-11-09 11:15 | STEWCON_ITS ---
Reason For Study: Chest Pain; CAD Stress Results Protocol: Modified Chandu Protocol With Definity Maximum Predicted HR: 172 bpm Target HR: 146 bpm % Maximum Predicted HR: 83 % DurationHeart Rate Stage (mm:ss) (bpm) BP Comment Baseline 93 98/64No Chest Pain; 3 ML Diluted Definity Modified Chandu Protocol Stage 0 3:00 107 110/68No Chest Pain Modified Chandu Protocol Stage 1/2 3:00 107 124/70No Chest Pain Modified Chandu Protocol Stage 1 3:00 114 130/70No Chest Pain; Mild Dyspnea Modified Chandu Protocol Stage 2 3:00 126 132/746/10 Chest Pain; Mod Dyspnea Modified Chandu Protocol Stage 3 0:06 142 / 6/10 Chest Pain; Mod Dyspnea Recovery 101 110/70No Chest Pain Stress Duration: 12:06 mm:ss Maximum Stress HR: 142 bpm METS: 7 Baseline Echocardiogram Findings The estimated ejection fraction is 65 %. Stress Echo Wall motion Data Resting WM Intermediate WM Stress WM Resting Wall Motion Wall Motion Stress No regional wall motion No regional wall motion abnormalities noted. abnormalities noted. EKG Data The baseline ECG displays normal sinus rhythm. The maximum heart rate attained was 93 beats per minute. This was 82% of maximum predicted heart rate. The patient exercised into stage 3 of the Chandu protocol. The stress ECG displays diffuse abnormal ST segments. Interpretation Summary The estimated ejection fraction is 65 %. Abnormal, adequate modified Chandu treadmill echocardiogram. Positive for ischemia by EKG criteria as well as chest pain at peak exercise. Appropriate blood pressure response to exercise. Patient developed 6 out of 10 substernal chest pressure at peak exercise with no associated wall motion abnormalities noted. In addition she developed [address] segment depression along the inferior lateral leads which persisted into 5 minutes 50 seconds into recovery. In addition she had a burst of SVT during the first portion of recovery. Final LVEF is 75%. Poor echo windows requiring Definity agent. Test terminated due to dyspnea and chest pain. Although patient did not reach target heart rate, her rate-pressure product was 15,840. No complications. The study was technically difficult. Contrast injection was performed. Ordering Physician: Darnell Montelongo Referring Physician: Meme Santiago Performed By: Lea Manning, CHRISTOPHER, RVT
== END ==
PROVIDERS: PCP Family Medicine; Referring Provider Internal Medicine Cardiovascular Disease; Visit Provider Internal Medicine Cardiovascular Disease
DX: R07.9 Chest pain, unspecified (principal); E78.5 Hyperlipidemia, unspecified; E11.9 Type 2 diabetes mellitus without complications; R06.00 Dyspnea, unspecified; Z95.5 Presence of coronary angioplasty implant and graft
CPT/HCPCS: 93017; 93350; Q9957; A4216; C8928

== ENCOUNTER 2019-11-15 08:04 | Day surgery (SDC) | payer MEDICAID, SELFPAY ==
[2018-01-07 14:40] VITALS: BMI 41.5
[2019-08-21 09:20] VITALS: BMI 38.7
[2019-11-14 10:02] VITALS: BMI 38.7
--- NOTE | 2019-11-14 10:37 | RAD_ITS ---
HISTORY: ABNORMAL STRESS TEST, CAD, PRE HEART CATH ADDITIONAL HISTORY: None provided. COMPARISON: 09/06/2018 TECHNIQUE: Frontal and lateral chest radiographs. Number of images including paperwork: 2 FINDINGS: LUNGS AND PLEURA: No consolidation, mass or pleural effusion. CARDIAC SILHOUETTE: Unremarkable. MEDIASTINUM AND ARIEL: Unremarkable. UPPER ABDOMEN: Unremarkable. SKELETON AND SOFT TISSUES: No acute findings. Degenerative changes. OTHER DEVICES AND HARDWARE: Coronary stent. RAD/Chest PA and Lateral IMPRESSION: No acute cardiopulmonary abnormality. at 0243 Reported and signed by: Lela Gonzalez MD Electronically Signed: Lela Gonzalez MD at 2:43 EDT Tel , Service support ,
[2019-11-14 11:33] LABS: Hematocrit 36.7 % (37-47); Hemoglobin 12.2 g/dL (12.0-15.0); Mean Corp Hgb Conc 33.2 g/dL (32-36); Mean Corpuscular Hgb 27.7 pg (27.0-32.0); Mean Corpuscular Volume 83.4 fL (81-99); Mean Platelet Vol. 10.3 fl (6.2-12.0); Platelet Count 256 K/mm3 (150-450); RBC Distribution Width CV 13.6 % (11.6-14.6); RBC Distribution Width SD 40.9 fl (35.1-43.9); White Blood Count 7.3 K/mm3 (4.4-11.0)
[2019-11-14 11:46] LABS: Partial Thromboplast Time 24.2 Seconds (24.1-36.2); Prothrombin Time (Protime)PT. 12.2 SECONDS (11.7-14.9)
[2019-11-14 12:56] LABS: Anion Gap 8 (5-15); BUN 9 mg/dL (7-18); BUN/Creat Ratio 9.4 RATIO (10-20); Calcium,Total 8.9 mg/dL (8.5-10.1); Chloride 101 mmol/L (98-107); Creatinine, Serum 0.96 mg/dL (0.55-1.02); EST Glomerular Filtration Rate 66 mL/min (>60); Est Glom Filt Rate - Afr Amer 80 mL/min (>60); Estimated Creatinine Clearance 64.49 ml/min; Glucose 368 mg/dL (74-106); Potassium 2.6 mmol/L (3.5-5.1); Sodium Level 141 mmol/L (136-145)
--- NOTE | 2019-11-14 16:03 | HP.PCM_ITS ---
History and Physical Date of Admission: 11/15/19 ROSA CHAN, is a 49 F who presents today for a diagnostic heart cath. She is a lifelong non-smoker, morbidly obese, diabetic female with a history of hypertension, hypercholesterolemia, coronary disease status post catheterization at an outside hospital by Dr. Johnson on 08/31/12. At that time she was found to have double vessel coronary disease with moderate disease in the right coronary artery and a more distal small caliber ramus intermedius branch disease with about 50-60% long tubular irregularities. FFR evaluation of the RCA was found to be negative and she was treated medically. In order to better assess this further she underwent a non-walking nuclear stress test at [facility] on 01/05/14 which showed normal LV function with an EF of 75% with minimal inferoapical defect which was reported as fixed and not reversible. She also underwent PTCA/JENNA to proximal RCA in January 2018. She has a history of KONSTANTIN with CPAP therapy. She underwent a dobutamine echocardiogram on 07/15/17 which was negative for inducible ischemia or angina. Her final LVEF was 75%. She underwent a left heart catheterization in January 2018 that resulted in successful PTCA/JENNA to proximal RCA. Further results showed ejection fraction of 65%, normal LVEDP, normal LV wall motion, angiographically normal left main, distal LAD with moderate luminal irregularities up to 50%, LCx and OM1 with mild luminal irregularities, and proximal RCA with 75% stenosis. Since her angioplasty, her chest pain had pretty much completely resolved up until about a few months ago when she was moving boxes out of her home. She developed similar substernal chest pressure to her previous angina which lasted for several minutes and required her to rest for it to go away. She underwent a stress echo which was noted to be abnormal. This demonstrated estimated ejection fraction is 65 %. Abnormal, adequate modified Chandu treadmill echocardiogram. Positive for ischemia by EKG criteria as well as chest pain at peak exercise. Appropriate blood pressure response to exercise. Patient developed 6 out of 10 substernal chest pressure at peak exercise with no associated wall motion abnormalities noted. In addition she developed [address] segment depression along the inferior lateral leads which persisted into 5 minutes 50 seconds into recovery. In addition she had a burst of SVT during the first portion of recovery. Final LVEF is 75%. Poor echo windows requiring Definity agent. Test terminated due to dyspnea and chest pain. Although patient did not reach target heart rate, her rate-pressure product was 15,840. No complications. The study was technically difficult. Contrast injection was performed. Allergies bacitracin [From Neosporin ([id number])] Allergy (Verified 08/21/19 09:29) rash estrogens, conjugated [From Premarin] Allergy (Verified 08/21/19 09:29) Rash hydrocodone bitartrate [From Vicodin] Allergy (Verified 08/21/19 09:29) Rash latex Allergy (Verified 08/21/19 09:29) Rash neomycin [From Neosporin ([id number]-iwm-tdapz)] Allergy (Verified 08/21/19 09:29) rash polymyxin B [From Neosporin (mom-iag-eedes)] Allergy (Verified 08/21/19 09:29) rash pseudoephedrine HCl [From Sudafed] Allergy (Verified 08/21/19 09:29) Shortness of breath azithromycin Adverse Reaction (Verified 08/21/19 09:29) GI Intolerance nitroglycerin Adverse Reaction (Verified 08/21/19 09:29) Other tolnaftate [From Bluespec.] Adverse Reaction (Verified 08/21/19 09:29) Unknown Medications loratadine 10 mg capsule 10 mg PO QDAY 06/21/17 [History Confirmed 08/21/19] glipizide 5 mg tablet 5 mg PO QDAY 06/22/17 [History Confirmed 08/21/19] montelukast 10 mg tablet 10 mg PO QPM 06/22/17 [History Confirmed 08/21/19] multivitamin 1 tab PO QDAY 06/22/17 [History Confirmed 08/21/19] nabumetone 750 mg tablet 750 mg PO QDAY tab 06/22/17 [History Confirmed 08/21/19] tramadol 50 mg tablet 100 mg PO PRN PRN tab 06/22/17 [History Confirmed 08/21/19] venlafaxine 225 mg tablet,extended release 24 hr 225 mg PO QAM 06/22/17 [History Confirmed 08/21/19] Sennosides/Docusate Sodium [Senna Plus Tablet] 2 ea PO QHS 07/26/17 [History Confirmed 08/21/19] alogliptin 25 mg tablet 25 mg PO QDAY 07/26/18 [History Confirmed 08/21/19] Lorazepam [Ativan] 1 mg PO DAILY PRN PRN 03/24/18 [History Confirmed 08/21/19] docusate sodium 100 mg capsule 100 mg PO BID 05/05/18 [History Confirmed 08/21/19] trazodone 100 mg tablet 200 mg PO QHS tab 05/05/18 [History Confirmed 08/21/19] Famotidine [Pepcid] 20 mg PO DAILY 09/06/18 [History Confirmed 08/21/19] aspirin 81 mg chewable tablet 81 mg PO DAILY@0800 #30 tab 09/21/18 [Rx Confirmed 08/21/19] clopidogrel 75 mg tablet 75 mg PO QDAY #30 tab 11/04/18 [Rx Confirmed 08/21/19] cyclobenzaprine 10 mg tablet 20 mg PO TID tab 11/04/18 [History Confirmed 08/21/19] dicyclomine 10 mg capsule 10 mg PO TID cap 11/04/18 [History Confirmed 08/21/19] atenolol 100 mg tablet 100 mg PO QDAY #90 tab 08/21/19 [Rx Confirmed 08/21/19] atorvastatin 20 mg tablet 20 mg PO QHS #90 tab 08/21/19 [Rx Confirmed 08/21/19] hydrochlorothiazide 25 mg tablet 25 mg PO QDAY #90 tab 08/21/19 [Rx Confirmed 08/21/19] isosorbide mononitrate 60 mg tablet,extended release 24 hr 60 mg PO TID #270 tab 08/21/19 [Rx] potassium chloride 10 mEq tablet,extended release(part/cryst) 10 meq PO TID #270 tab 08/21/19 [Rx Confirmed 08/21/19] quetiapine 400 mg tablet 400 mg PO DAILY tab 08/21/19 [History Confirmed 08/21/19] topiramate 25 mg capsule,extended release 24 hr 25 mg PO DAILY 08/21/19 [History Confirmed 08/21/19] [facility] Medical History Arteriosclerotic heart disease (ASHD) (Chronic) Obesity (BMI 30-39.9) (Chronic) DM type 2 (diabetes mellitus, type 2) (Chronic) Dyslipidemia (Chronic) HTN (hypertension) (Chronic) Arthritis (Acute) Atherosclerosis of coronary artery of [place] heart without angina pectoris (Acute) Diarrhea (Acute) Difficulty balancing (Acute) Fatigue (Acute) Headache (Acute) Knee pain (Acute) Seasonal allergies (Acute) Depression (Chronic) Eczema (Chronic) Fatty liver (Chronic) GERD (gastroesophageal reflux disease) (Chronic) Glaucoma (Chronic) Obstructive sleep apnea (Chronic) Osteoarthritis (Chronic) Surgical History Stented coronary artery (Chronic 01/07/18) H/O tooth extraction (Chronic) H/O total hysterectomy (Chronic) History of appendectomy (Chronic) History of left heart catheterization (Chronic ~08/2012) left carpal tunnel release (Resolved) Family History Mother Heart disease Hypertension Hyperlipidemia Diabetes Father Heart disease Hypertension Hyperlipidemia Social History (Updated 08/21/19 @ 09:[address] Darnell Montelongo MD) Smoking Status: Former smoker alcohol intake: never caffeine: Yes (cutting down) ROS Const Const: Positive for other (Has twinges of chest pain but did heavy lifting during move); negative for fatigue, weakness, body ache, fever(s), headache(s), chills, frequent falls, night sweats, daytime sleepiness, difficulty sleeping, excessive sweating, weight gain, weight loss, increased appetite, poor appetite or anorexia Eyes Eyes: Negative for blind spots, loss of peripheral vision, transient loss of vision, blurry vision, change in vision, double vision, floaters, tunnel vision or other ENT ENT: Negative for headache(s), dizziness, hearing loss, tinnitus, Nosebleed/epistaxis, balance problems, post nasal drip, lip swelling, tongue swelling, bleeding gums, hoarseness, neck pain, dry mouth or other Cardio Chest Pain: Yes (twinges but just did a lot of lifting for moving) Character: other (twinging) Onset: exercise (lifting heavy objects) Location: other (beneath both breasts) Duration: brief Resp Respiratory: Negative for SOB with activity, SOB at rest, SOB orthopnea\SOB lying down, Coughing up blood/hemoptysis, chest congestion, pain on inspiration, snoring, stridor, wheezing, crackles, paroxysmal nocturnal dyspnea or other GI GI: Negative nausea, vomiting, heartburn, constipation, belching, bloating, cramping, vomiting blood/hematemesis, bright, red blood in stools, black,tarry stools, loose stools, Difficulty Swallowing or other : Negative for hematuria, frequent nighttime urination/ nocturia, erectile dysfunction or abnormal vaginal bleeding Musc Musc: Negative for muscle aches/ myalgia, muscle weakness, joint pain or balance problems Skin Skin: Negative redness, non-healing lesions, rash, unusual bruising, skin ulcer, wounds, jaundice or other Neuro Neuro: Negative for dizziness, lightheadedness, near syncope, syncope, orthostatic symptoms, frequent falls, headache(s), weakness, confusion, memory loss, restless legs, blurry vision, double vision, vertigo, seizures, lack of coordination or other [place] Hematologic/Lymphatic: Negative for easy bleeding, easy bruising, enlarged lymph nodes or other Endo Endo: Negative for fatigue, cold intolerance, heat intolerance, excessive sweating, flushing, increased thirst/drinking, increased hunger, hair loss, hair growth or other Psych Psych: Negative for anxiety, depression, thoughts of harming anyone, thoughts of harming yourself, visual hallucinations, panic attacks or audible hallucinations Allergy Allergy/Immunology: Negative for throat swelling, Negative for tongue swelling, Negative for hives, Negative for rash, Negative for lip swelling Cardiology Exam Const Appearance: cooperative, healthy appearing and no acute distress Nutritional Appearance: well nourished Orientation: alert, oriented x3 and oriented to person Head Head: normal to inspection, normocephalic and atraumatic Nose: external nose normal Face and Sinus: face symmetric Mouth: oral mucosae normal Eyes General: appearance normal, both eyes and all related structures Eyelids: eyelids normal Conjunctivae: conjunctivae normal Pupils: PERRL and normal by confrontation EOM: EOM intact bilaterally Neck Neck: normal visual inspection and full ROM Carotids: normal carotid upstroke Chest Chest inspection: normal inspection of the chest Auscultation: Bilateral: Clear to Auscultation Cardio Palpation: normal PMI Rate: regular rate Rhythm: regular rhythm Heart sounds: S1 normal and S2 normal GI GI: normal to inspection, no hepatosplenomegaly and bowel sounds present Neuro General: alert, awake, oriented x3, CN's II-XI intact bilaterally and moves all extremities Skin Skin: no rashes or lesions noted Extremities Pulses: Normal: Right Femoral Pulse, Left Femoral Pulse, Right Dorsalis Pedis Pulse, Left Dorsalis Pedis Pulse, Right Posterior Tibial Pulse, Left Posterior Tibial Pulse, Right Radial Pulse, Left Radial Pulse Lower Extremity Edema: None: Bilateral Psych Psychological: normal affect Assessment & Plan 1. Arteriosclerotic heart disease (ASHD) I25.10 Stent to RCA 01/07/2018 Pt will undergo a diagnostic heart cath if needed she will also have stenting. She will follow up accordingly after procedure.
[2019-11-15 08:41] LABS: Anion Gap 6 (5-15); BUN 8 mg/dL (7-18); BUN/Creat Ratio 8.9 RATIO (10-20); Calcium,Total 8.6 mg/dL (8.5-10.1); Chloride 103 mmol/L (98-107); EST Glomerular Filtration Rate 71 mL/min (>60); Est Glom Filt Rate - Afr Amer 86 mL/min (>60); Estimated Creatinine Clearance 68.79 ml/min; Glucose 306 mg/dL (74-106); Potassium 2.9 mmol/L (3.5-5.1); Sodium Level 141 mmol/L (136-145)
--- NOTE | 2019-11-15 09:26 | CL.D_ITS ---
Patient Name: ROSA CHAN Study Date: 11/15/2019 Performing: Darnell Montelongo MD Ht: 64.96 inches 165 cm : 1970 Wt: 233.69 lbs 106 kg Age: 49 Gender: female BSA: 2.11 PROCEDURE(S) PERFORMED [id number]/LV CLINICAL PROFILE AND INDICATIONS Indications: New Onset Angina <= 2 months, Stable Known CAD Heart Failure: None Stress/Imaging Date: 11/09/2019Stress Echocardiogram: Positive Low Risk Angina Classification Anginal Classification w/in 2 Weeks: CCS IV CAD Presentations: Unstable angina. Comorbidities/Risk Factors: Hypertension Dyslipidemia Prior PCI CONCLUSIONS Perserved Left Ventricular systolic function with normal EDP LVEF: by LV gram 75 % Normal Left Ventricular End Diastolic Pressure Non obstructive coronary arteries Widely patent RCA stent RECOMMENDATIONS Management as per referring Shower Maid Manual sheath removal; increase KCL to 20meq po TID. DESCRIPTION OF PROCEDURE The patient arrived to the procedure lab. The risks and benefits of the procedure as well as a full d escription of our services here and current unavailability of surgical backup were fully explained to the patient and/or their significant other prior to the catheterization. The Timeout was completed, verifying the correct patient and procedure. The patient's procedural site was prepped and draped in the usual fashion. Local anesthetic was given subcutaneously to right groin region with Lidocaine 2%. Using a modified Seldinger technique, arterial access was obtained via the right femoral artery, a 4 Fr sheath was inserted Left Coronary Artery selective angiography was performed in multiple views us ing a 4 Fr. JL5 catheter. Right Coronary Artery selective angiography was then performed in multiple views using a 4 Fr. 3DRC catheter. Left Ventriculography was performed in REBOLLEDO projection using a 4 Fr . Pigtail catheter. LV to AO pullback pressures were then recorded.The arterial sheath was pulled and manual compression applied until hemostasis is achieved. CORONARY ANGIOGRAPHY DOMINANCE: Right Dominant LEFT HEART ASSESSMENT Left Ventricular Ejection Fraction: by LV Gram 75 % Normal LV wall motion Normal Left Ventricular systolic function LEFT MAIN: Angiographically normal LEFT ANTERIOR DESCENDING ARTERY: Mild luminal irregularities less than 30% CIRCUMFLEX ARTERY: Mild luminal irregularities less than 30% OM 1: Proximal - Non-obstructive RIGHT CORONARY ARTERY: PROX RCA: Previously placed stent is patent DISTAL RCA: Non-obstructive RT PDA: Mid - Mild luminal irregularities less than 30% COMPLICATIONS No Complications PROCEDURE MEDICATIONS Oxygen: 2 L/min via nasal cannula Potassium Chloride 10 mEq in 100cc NS 11/15/2019 08:48:17 IV Bolus: .9 NaCl 150 ml total 11/15/2019 09:17:03 SUMMARY OF HEMODYNAMIC DATA Time AIR REST ECG 08:36:37 AO 117/86 (98) SA 09:10:44 LV 130/-14, 12 09:15:49 LV 131/-14, 12 09:15:56 LVp 129/-21, 13 09:16:01 AOp 125/-19 (62) 09:16:06 Signed By Darnell Montelongo MD On 11/15/2019 09:25:28 Darnell Montelongo MD
--- NOTE | 2019-11-15 11:50 | PCM.HP.BLA ---
Problem List (1) Abnormal stress test Status: Acute (2) Chest pain Status: Acute Qualifiers: Chest pain type: unspecified Qualified Code(s): R07.9 - Chest pain, unspecified (3) Dyspnea on exertion Status: Acute (4) Arteriosclerotic heart disease (ASHD) Status: Chronic Comment: Stent to RCA 01/07/2018 History and Physical Date of Admission: 11/15/19 History and Physical (Generic) Patient Name: ROSA CHAN Date of : 72 Patient Status: Surgical Day Care Attending Provider: Darnell Montelongo Date: 11/14/19 16:03 Initialization Date: 11/14/19 16:03 History and Physical Date of Admission: 11/15/19 ROSA CHAN, is a 49 F who presents today for a diagnostic heart cath. She is a lifelong non-smoker, morbidly obese, diabetic female with a history of hypertension, hypercholesterolemia, coronary disease status post catheterization at an outside hospital by Dr. Johnson on 08/31/12. At that time she was found to have double vessel coronary disease with moderate disease in the right coronary artery and a more distal small caliber ramus intermedius branch disease with about 50-60% long tubular irregularities. FFR evaluation of the RCA was found to be negative and she was treated medically. In order to better assess this further she underwent a non-walking nuclear stress test at [facility] on 01/05/14 which showed normal LV function with an EF of 75% with minimal inferoapical defect which was reported as fixed and not reversible. She also underwent PTCA/JENNA to proximal RCA in January 2018. She has a history of KONSTANTIN with CPAP therapy. She underwent a dobutamine echocardiogram on 07/15/17 which was negative for inducible ischemia or angina. Her final LVEF was 75%. She underwent a left heart catheterization in January 2018 that resulted in successful PTCA/JENNA to proximal RCA. Further results showed ejection fraction of 65%, normal LVEDP, normal LV wall motion, angiographically normal left main, distal LAD with moderate luminal irregularities up to 50%, LCx and OM1 with mild luminal irregularities, and proximal RCA with 75% stenosis. Since her angioplasty, her chest pain had pretty much completely resolved up until about a few months ago when she was moving boxes out of her home. She developed similar substernal chest pressure to her previous angina which lasted for several minutes and required her to rest for it to go away. She underwent a stress echo which was noted to be abnormal. This demonstrated estimated ejection fraction is 65 %. Abnormal, adequate modified Chandu treadmill echocardiogram. Positive for ischemia by EKG criteria as well as chest pain at peak exercise. Appropriate blood pressure response to exercise. Patient developed 6 out of 10 substernal chest pressure at peak exercise with no associated wall motion abnormalities noted. In addition she developed [address] segment depression along the inferior lateral leads which persisted into 5 minutes 50 seconds into recovery. In addition she had a burst of SVT during the first portion of recovery. Final LVEF is 75%. Poor echo windows requiring Definity agent. Test terminated due to dyspnea and chest pain. Although patient did not reach target heart rate, her rate-pressure product was 15,840. No complications. The study was technically difficult. Contrast injection was performed. Allergies bacitracin [From Neosporin ([id number])] Allergy (Verified 08/21/19 09:29) rash estrogens, conjugated [From Premarin] Allergy (Verified 08/21/19 09:29) Rash hydrocodone bitartrate [From Vicodin] Allergy (Verified 08/21/19 09:29) Rash latex Allergy (Verified 08/21/19 09:29) Rash neomycin [From Neosporin ([id number])] Allergy (Verified 08/21/19 09:29) rash polymyxin B [From Neosporin ([id number])] Allergy (Verified 08/21/19 09:29) rash pseudoephedrine HCl [From Sudafed] Allergy (Verified 08/21/19 09:29) Shortness of breath azithromycin Adverse Reaction (Verified 08/21/19 09:29) GI Intolerance nitroglycerin Adverse Reaction (Verified 08/21/19 09:29) Other tolnaftate [From AbsorbMiniBrake.] Adverse Reaction (Verified 08/21/19 09:29) Unknown Medications loratadine 10 mg capsule 10 mg PO QDAY 06/21/17 [History Confirmed 08/21/19] glipizide 5 mg tablet 5 mg PO QDAY 06/22/17 [History Confirmed 08/21/19] montelukast 10 mg tablet 10 mg PO QPM 06/22/17 [History Confirmed 08/21/19] multivitamin 1 tab PO QDAY 06/22/17 [History Confirmed 08/21/19] nabumetone 750 mg tablet 750 mg PO QDAY tab 06/22/17 [History Confirmed 08/21/19] tramadol 50 mg tablet 100 mg PO PRN PRN tab 06/22/17 [History Confirmed 08/21/19] venlafaxine 225 mg tablet,extended release 24 hr 225 mg PO QAM 06/22/17 [History Confirmed 08/21/19] Sennosides/Docusate Sodium [Senna Plus Tablet] 2 ea PO QHS 07/26/17 [History Confirmed 08/21/19] alogliptin 25 mg tablet 25 mg PO QDAY 12/30/17 [History Confirmed 08/21/19] Lorazepam [Ativan] 1 mg PO DAILY PRN PRN 03/24/18 [History Confirmed 08/21/19] docusate sodium 100 mg capsule 100 mg PO BID 05/05/18 [History Confirmed 08/21/19] trazodone 100 mg tablet 200 mg PO QHS tab 05/05/18 [History Confirmed 08/21/19] Famotidine [Pepcid] 20 mg PO DAILY 09/06/18 [History Confirmed 08/21/19] aspirin 81 mg chewable tablet 81 mg PO DAILY@0800 #30 tab 09/21/18 [Rx Confirmed 08/21/19] clopidogrel 75 mg tablet 75 mg PO QDAY #30 tab 11/04/18 [Rx Confirmed 08/21/19] cyclobenzaprine 10 mg tablet 20 mg PO TID tab 11/04/18 [History Confirmed 08/21/19] dicyclomine 10 mg capsule 10 mg PO TID cap 11/04/18 [History Confirmed 08/21/19] atenolol 100 mg tablet 100 mg PO QDAY #90 tab 08/21/19 [Rx Confirmed 08/21/19] atorvastatin 20 mg tablet 20 mg PO QHS #90 tab 08/21/19 [Rx Confirmed 08/21/19] hydrochlorothiazide 25 mg tablet 25 mg PO QDAY #90 tab 08/21/19 [Rx Confirmed 08/21/19] isosorbide mononitrate 60 mg tablet,extended release 24 hr 60 mg PO TID #270 tab 08/21/19 [Rx] potassium chloride 10 mEq tablet,extended release(part/cryst) 10 meq PO TID #270 tab 08/21/19 [Rx Confirmed 08/21/19] quetiapine 400 mg tablet 400 mg PO DAILY tab 08/21/19 [History Confirmed 08/21/19] topiramate 25 mg capsule,extended release 24 hr 25 mg PO DAILY 08/21/19 [History Confirmed 08/21/19] [facility] Medical History Arteriosclerotic heart disease (ASHD) (Chronic) Obesity (BMI 30-39.9) (Chronic) DM type 2 (diabetes mellitus, type 2) (Chronic) Dyslipidemia (Chronic) HTN (hypertension) (Chronic) Arthritis (Acute) Atherosclerosis of coronary artery of [place] heart without angina pectoris (Acute) Diarrhea (Acute) Difficulty balancing (Acute) Fatigue (Acute) Headache (Acute) Knee pain (Acute) Seasonal allergies (Acute) Depression (Chronic) Eczema (Chronic) Fatty liver (Chronic) GERD (gastroesophageal reflux disease) (Chronic) Glaucoma (Chronic) Obstructive sleep apnea (Chronic) Osteoarthritis (Chronic) Surgical History Stented coronary artery (Chronic 01/07/18) H/O tooth extraction (Chronic) H/O total hysterectomy (Chronic) History of appendectomy (Chronic) History of left heart catheterization (Chronic ~08/2012) left carpal tunnel release (Resolved) Family History Mother Heart disease Hypertension Hyperlipidemia Diabetes Father Heart disease Hypertension Hyperlipidemia Social History (Updated 08/21/19 @ 09:[address] Darnell Montelongo MD) Smoking Status: Former smoker alcohol intake: never caffeine: Yes (cutting down) ROS Const Const: Positive for other (Has twinges of chest pain but did heavy lifting during move); negative for fatigue, weakness, body ache, fever(s), headache(s), chills, frequent falls, night sweats, daytime sleepiness, difficulty sleeping, excessive sweating, weight gain, weight loss, increased appetite, poor appetite or anorexia Eyes Eyes: Negative for blind spots, loss of peripheral vision, transient loss of vision, blurry vision, change in vision, double vision, floaters, tunnel vision or other ENT ENT: Negative for headache(s), dizziness, hearing loss, tinnitus, Nosebleed/epistaxis, balance problems, post nasal drip, lip swelling, tongue swelling, bleeding gums, hoarseness, neck pain, dry mouth or other Cardio Chest Pain: Yes (twinges but just did a lot of lifting for moving) Character: other (twinging) Onset: exercise (lifting heavy objects) Location: other (beneath both breasts) Duration: brief Resp Respiratory: Negative for SOB with activity, SOB at rest, SOB orthopnea\SOB lying down, Coughing up blood/hemoptysis, chest congestion, pain on inspiration, snoring, stridor, wheezing, crackles, paroxysmal nocturnal dyspnea or other GI GI: Negative nausea, vomiting, heartburn, constipation, belching, bloating, cramping, vomiting blood/hematemesis, bright, red blood in stools, black,tarry stools, loose stools, Difficulty Swallowing or other : Negative for hematuria, frequent nighttime urination/ nocturia, erectile dysfunction or abnormal vaginal bleeding Musc Musc: Negative for muscle aches/ myalgia, muscle weakness, joint pain or balance problems Skin Skin: Negative redness, non-healing lesions, rash, unusual bruising, skin ulcer, wounds, jaundice or other Neuro Neuro: Negative for dizziness, lightheadedness, near syncope, syncope, orthostatic symptoms, frequent falls, headache(s), weakness, confusion, memory loss, restless legs, blurry vision, double vision, vertigo, seizures, lack of coordination or other [place] Hematologic/Lymphatic: Negative for easy bleeding, easy bruising, enlarged lymph nodes or other Endo Endo: Negative for fatigue, cold intolerance, heat intolerance, excessive sweating, flushing, increased thirst/drinking, increased hunger, hair loss, hair growth or other Psych Psych: Negative for anxiety, depression, thoughts of harming anyone, thoughts of harming yourself, visual hallucinations, panic attacks or audible hallucinations Allergy Allergy/Immunology: Negative for throat swelling, Negative for tongue swelling, Negative for hives, Negative for rash, Negative for lip swelling Cardiology Exam Const Appearance: cooperative, healthy appearing and no acute distress Nutritional Appearance: well nourished Orientation: alert, oriented x3 and oriented to person Head Head: normal to inspection, normocephalic and atraumatic Nose: external nose normal Face and Sinus: face symmetric Mouth: oral mucosae normal Eyes General: appearance normal, both eyes and all related structures Eyelids: eyelids normal Conjunctivae: conjunctivae normal Pupils: PERRL and normal by confrontation EOM: EOM intact bilaterally Neck Neck: normal visual inspection and full ROM Carotids: normal carotid upstroke Chest Chest inspection: normal inspection of the chest Auscultation: Bilateral: Clear to Auscultation Cardio Palpation: normal PMI Rate: regular rate Rhythm: regular rhythm Heart sounds: S1 normal and S2 normal GI GI: normal to inspection, no hepatosplenomegaly and bowel sounds present Neuro General: alert, awake, oriented x3, CN's II-XI intact bilaterally and moves all extremities Skin Skin: no rashes or lesions noted Extremities Pulses: Normal: Right Femoral Pulse, Left Femoral Pulse, Right Dorsalis Pedis Pulse, Left Dorsalis Pedis Pulse, Right Posterior Tibial Pulse, Left Posterior Tibial Pulse, Right Radial Pulse, Left Radial Pulse Lower Extremity Edema: None: Bilateral Psych Psychological: normal affect Assessment & Plan 1. Arteriosclerotic heart disease (ASHD) I25.10 Stent to RCA 01/07/2018 Pt will undergo a diagnostic heart cath if needed she will also have stenting. She will follow up accordingly after procedure. Interventional cardiology addendum: The risk/benefits of the procedure were thoroughly explained to the patient, with specific attention to lack of onsite surgical backup, and informed consent was obtained. Patient is agreed to proceed with left heart catheterization as outlined above. Left heart catheterization to follow.
== END 2019-11-15 13:48 | disposition home or self-care (01) ==
LOC: CLSP 08:05
PROVIDERS: PCP Family Medicine; Referring Provider Internal Medicine Cardiovascular Disease; Visit Provider Internal Medicine Cardiovascular Disease
DX: I25.110 Atherosclerotic heart disease of native coronary artery with unstable angina pectoris (principal); R94.39 Abnormal result of other cardiovascular function study; R06.00 Dyspnea, unspecified; R07.9 Chest pain, unspecified; E66.01 Morbid (severe) obesity due to excess calories; E11.9 Type 2 diabetes mellitus without complications; I10 Essential (primary) hypertension; E78.00 Pure hypercholesterolemia, unspecified; M19.90 Unspecified osteoarthritis, unspecified site; F32.9 Major depressive disorder, single episode, unspecified; K21.9 Gastro-esophageal reflux disease without esophagitis; G47.33 Obstructive sleep apnea (adult) (pediatric); Z79.82 Long term (current) use of aspirin; Z79.84 Long term (current) use of oral hypoglycemic drugs; Z79.1 Long term (current) use of non-steroidal anti-inflammatories (NSAID); Z79.899 Other long term (current) drug therapy; Z87.891 Personal history of nicotine dependence
CPT/HCPCS: 36415; 71046; 80048; 85027; 85610; 85730; 93458; J7040; C1769; C1894; Q9967

== ENCOUNTER → 2019-11-27 10:25 | Outpatient (CLI) | payer MEDICAID, SELFPAY ==
[2018-01-07 14:40] VITALS: BMI 41.5
[2019-11-27 10:21] VITALS: BMI 38.7
--- NOTE | 2019-11-27 10:26 | RAD_ITS ---
STUDY: X-RAY - RIGHT SHOULDER REASON FOR EXAM: Female, 49 years old. Shoulder pain after falling TECHNIQUE: 4 view(s) of the shoulder. COMPARISON: None. FINDINGS: There is mild degenerative arthrosis of the glenohumeral articulation. There is degenerative arthrosis of the acromioclavicular joint without inferior osseous spur formation. Normal acromion. Normal humeral head and visualized proximal humerus. There is periarticular soft tissue calcification consistent with a calcific tendinitis. Normal visualized pulmonary apex. RAD/Shoulder min 2 Views IMPRESSION: Mild arthrosis, no demonstrated fracture Evidence of calcific rotator cuff tendinitis Electronically Signed: Michael Springer MD at 11:59 EDT , Service support ,
== END ==
PROVIDERS: PCP Family Medicine; Referring Provider Physician Assistant; Visit Provider Physician Assistant
DX: M25.511 Pain in right shoulder (principal)
CPT/HCPCS: 73030

== ENCOUNTER → 2019-12-27 11:48 | Outpatient (CLI) | payer MEDICAID, SELFPAY ==
[2018-01-07 14:40] VITALS: BMI 41.5
[2019-11-14 10:02] VITALS: BMI 38.7
[2019-11-27 10:21] VITALS: BMI 38.7
[2019-12-27 15:04] LABS: Absolute Lymphocyte Count 2.51 X10^3/uL (0.83-4.51); Absolute Neutrophil Count 8.1 X10^3/uL (2.0-7.7); Basophil# 0.05 X10^3/uL; Basophil% 0.4 % (0-1); Eosinophil# 0.31 X10^3/uL; Eosinophils% 2.7 % (0-5); Hematocrit 40.9 % (37-47); Hemoglobin 13.3 g/dL (12.0-15.0); Lymphocyte # 2.51 X10^3/ul (4.0); Lymphocyte % 21.8 % (19-41); Mean Corp Hgb Conc 32.5 g/dL (32-36); Mean Corpuscular Hgb 27.5 pg (27.0-32.0); Mean Corpuscular Volume 84.5 fL (81-99); Mean Platelet Vol. 10.2 fl (6.2-12.0); Monocyte# 0.44 X10^3/uL; Monocyte% 3.8 % (0-10); NRBC Flagged by Analyzer 0 % (0-5); Neutrophil # 8.14 X10^3/uL (2.7-7.7); Neutrophil % 70.6 % (47-70); Platelet Count 320 K/mm3 (150-450); RBC Distribution Width CV 13.2 % (11.6-14.6); RBC Distribution Width SD 40.7 fl (35.1-43.9); Red Blood Count 4.84 M/mm3 (4.2-5.4); White Blood Count 11.5 K/mm3 (4.4-11.0)
[2019-12-27 16:06] LABS: ALB/GLOB Ratio 0.9 RATIO (0.9-2.4); AST(SGOT) 14 U/L (15-37); Alanine Aminotransfer ALT/SGPT 30 U/L (13-56); Albumin, Serum 3.6 g/dL (3.2-5.0); Alkaline Phosphatase 107 U/L (45-117); Anion Gap 7 (5-15); BUN 13 mg/dL (7-18); BUN/Creat Ratio 12.4 RATIO (10-20); Chloride 99 mmol/L (98-107); Creatinine, Serum 1.05 mg/dL (0.55-1.02); EST Glomerular Filtration Rate 59 mL/min (>60); Est Glom Filt Rate - Afr Amer 72 mL/min (>60); Globulin 3.8 g/dL (2.2-4.2); Glucose 189 mg/dL (74-106); Potassium 2.7 mmol/L (3.5-5.1); Protein, Total 7.4 g/dL (6.4-8.2); Sodium Level 136 mmol/L (136-145)
== END ==
PROVIDERS: PCP Family Medicine; Visit Provider Family Medicine
DX: E11.9 Type 2 diabetes mellitus without complications (principal); E78.5 Hyperlipidemia, unspecified; I10 Essential (primary) hypertension; R53.83 Other fatigue
CPT/HCPCS: 36415; 80053; 85025

== ENCOUNTER → 2020-01-04 08:10 | Outpatient (CLI) | payer MEDICAID, SELFPAY ==
[2018-01-07 14:40] VITALS: BMI 41.5
[2019-11-27 10:21] VITALS: BMI 38.7
[2020-01-04 13:08] LABS: Anion Gap 6 (5-15); BUN 10 mg/dL (7-18); BUN/Creat Ratio 10.3 RATIO (10-20); Chloride 103 mmol/L (98-107); Creatinine, Serum 0.97 mg/dL (0.55-1.02); EST Glomerular Filtration Rate 65 mL/min (>60); Est Glom Filt Rate - Afr Amer 79 mL/min (>60); Glucose 152 mg/dL (74-106); Potassium 3.1 mmol/L (3.5-5.1); Sodium Level 138 mmol/L (136-145)
== END ==
PROVIDERS: PCP Family Medicine; Visit Provider Family Medicine
DX: E87.6 Hypokalemia (principal)
CPT/HCPCS: 36415; 80048

== ENCOUNTER → 2020-02-05 07:58 | Outpatient (CLI) | payer MEDICAID, SELFPAY ==
[2018-01-07 14:40] VITALS: BMI 41.5
[2019-11-27 10:21] VITALS: BMI 38.7
[2020-02-05 12:27] LABS: Anion Gap 7 (5-15); BUN 9 mg/dL (7-18); BUN/Creat Ratio 9.5 RATIO (10-20); Calcium,Total 8.9 mg/dL (8.5-10.1); Chloride 102 mmol/L (98-107); Creatinine, Serum 0.95 mg/dL (0.55-1.02); EST Glomerular Filtration Rate 67 mL/min (>60); Est Glom Filt Rate - Afr Amer 81 mL/min (>60); Glucose 154 mg/dL (74-106); Potassium 3.4 mmol/L (3.5-5.1); Sodium Level 139 mmol/L (136-145)
== END ==
PROVIDERS: PCP Family Medicine; Visit Provider Family Medicine
DX: I10 Essential (primary) hypertension (principal)
CPT/HCPCS: 36415; 80048

== ENCOUNTER → 2020-04-05 10:53 | Outpatient (CLI) | payer MEDICAID, SELFPAY ==
[2018-01-07 14:40] VITALS: BMI 41.5
[2019-11-27 10:21] VITALS: BMI 38.7
--- NOTE | 2020-04-05 10:55 | BI_ITS ---
MAMMOGRAPHY - BILATERAL SCREENING REASON FOR EXAM: Female, 50 years old. Routine annual screening examination. PERTINENT HISTORY: Grandmother with breast cancer. TECHNIQUE: Digital bilateral breast [place] (3D mammographic acquisition) in the CC and MLO projections. 2-D mediolateral oblique (MLO) and craniocaudad (CC) views of both breasts were obtained. CAD: Full Field Digital Mammography with Computer Added Detection was performed. COMPARISON: Comparison is made with prior study dated 03/13/2019 and 03/12/2018. FINDINGS: Breast Composition: The breasts are almost entirely fatty. There are no dominant masses or suspicious calcifications. Stable benign-appearing bilateral axillary lymph nodes. No other significant abnormalities are identified. There has been no significant change since the prior study. BI/SCREEN MAMM (CAD) W/[place] BILAT IMPRESSION: Stable bilateral screening mammogram. Yearly follow-up mammogram recommended. (A) ASSESSMENT CATEGORY: BIRADS Category 2: Benign. A letter regarding these results will be sent to the patient by the facility within 30 days. Approximately 10% of breast cancers are not detected by mammography. A normal mammogram should not delay biopsy of a clinically suspicious abnormality. [id number] Electronically Signed: Real Arnett, at 12:22 EDT , Service support ,
== END ==
PROVIDERS: PCP Family Medicine; Visit Provider Family Medicine
DX: Z12.31 Encounter for screening mammogram for malignant neoplasm of breast (principal); Z80.3 Family history of malignant neoplasm of breast
CPT/HCPCS: 77063; 77067